=== PATIENT | female | born 1955 | race Caucasian/White ===

== ENCOUNTER → 2024-02-24 14:48 | Outpatient (REF) | payer OTHER, SELFPAY | LOC: OIDL 14:48 | PROVIDERS: ATTENDING PHYSICIAN Internal Medicine Hematology & Oncology | DX: C20 Malignant neoplasm of rectum (principal); C78.7 Secondary malignant neoplasm of liver and intrahepatic bile duct | CPT/HCPCS: J9206 ==

== ENCOUNTER → 2024-03-06 11:09 | Outpatient (REF) | payer OTHER, SELFPAY ==
[2024-03-06 10:35] LABS: % Basophils 1.1 % (0-2); % Eosinophils 1.7 % (0-6); % Immature Granulocytes 0.3 % (0-0.5); % Lymphocytes 10.6 % (20.5-51.1); % Monocytes 11.3 % (1.7-9.3); Absolute Basophils 0.1 10^3/uL (0-0.2); Absolute Eosinophils 0.1 10^3/uL (0-0.7); Absolute Lymphocytes 0.8 10^3/uL (1.2-3.4); Absolute Monocytes 0.8 10^3/uL (0.1-0.6); Absolute Neutrophils 5.4 10^3/uL (1.4-6.5); Hematocrit 35.8 % (37.0-47.0); Hemoglobin 11.2 g/dL (12.0-16.0); Mean Corp Hgb Conc. 31.3 g/dL (33.0-37.0); Mean Corpuscular Hgb 30.2 pg (27.0-31.0); Mean Corpuscular Volume 96.5 fL (81.0-99.0); Mean Platelet Volume 9.7 fL (7.4-10.4); Platelet Count 359 10^3/uL (130-400); Red Blood Cell Count 3.71 10^6/uL (4.20-5.40); Red Cell Dist. Width 16.5 % (11.5-14.5); White Blood Cell Count 7.2 10^3/uL (4.8-10.8)
[2024-03-06 10:56] LABS: ALT (SGPT) 18 U/L (0-35); AST (SGOT) 36 U/L (14-36); Albumin 4.1 g/dl (3.5-5.0); Alkaline Phosphatase 122 U/L (38-126); Blood Urea Nitrogen 15 mg/dl (7-17); Calcium 9.5 mg/dl (8.4-10.2); Carbon Dioxide 25 mmol/L (22-30); Chloride 105 mmol/L (98-107); Glucose 113 mg/dl (70-99); Potassium 4.2 mmol/L (3.5-5.1); Sodium 136 mmol/L (135-145); Total Bilirubin 0.5 mg/dl (0.2-1.3); Total Protein 7.3 g/dl (6.3-8.2); eGFR > 60.00
== END ==
LOC: OIDL 11:09
PROVIDERS: ATTENDING PHYSICIAN Internal Medicine Hematology & Oncology; FAMILY PHYSICIAN Internal Medicine
DX: C78.7 Secondary malignant neoplasm of liver and intrahepatic bile duct (principal); C20 Malignant neoplasm of rectum
CPT/HCPCS: 80053; 85025

== ENCOUNTER → 2024-04-09 08:45 | Outpatient (REF) | payer OTHER, SELFPAY | LOC: PET 08:45 | PROVIDERS: ATTENDING PHYSICIAN Internal Medicine Hematology & Oncology | DX: C20 Malignant neoplasm of rectum (principal) | CPT/HCPCS: 78815; A9552 ==

== ENCOUNTER → 2024-04-10 10:54 | Outpatient (REF) | payer OTHER, SELFPAY ==
[2024-04-10 12:22] LABS: % Eosinophils 1.4 % (0-6); % Immature Granulocytes 0.5 % (0-0.5); % Monocytes 10.7 % (1.7-9.3); % Neutrophils 75.4 % (42.2-75.2); Absolute Basophils 0.1 10^3/uL (0-0.2); Absolute Eosinophils 0.1 10^3/uL (0-0.7); Absolute Lymphocytes 0.9 10^3/uL (1.2-3.4); Absolute Monocytes 0.8 10^3/uL (0.1-0.6); Absolute Neutrophils 5.9 10^3/uL (1.4-6.5); Hematocrit 37.5 % (37.0-47.0); Hemoglobin 11.2 g/dL (12.0-16.0); Mean Corp Hgb Conc. 29.9 g/dL (33.0-37.0); Mean Corpuscular Hgb 28.1 pg (27.0-31.0); Mean Platelet Volume 9.7 fL (7.4-10.4); Nucleated Red Blood Cells % 0 %; Platelet Count 278 10^3/uL (130-400); Red Blood Cell Count 3.99 10^6/uL (4.20-5.40); Red Cell Dist. Width 15.5 % (11.5-14.5); White Blood Cell Count 7.9 10^3/uL (4.8-10.8)
[2024-04-10 13:38] LABS: ALT (SGPT) 16 U/L (0-35); AST (SGOT) 37 U/L (14-36); Albumin 4.3 g/dl (3.5-5.0); Alkaline Phosphatase 133 U/L (38-126); Blood Urea Nitrogen 18 mg/dl (7-17); Calcium 9.2 mg/dl (8.4-10.2); Carbon Dioxide 27 mmol/L (22-30); Chloride 102 mmol/L (98-107); Glucose 92 mg/dl (70-99); Potassium 4.6 mmol/L (3.5-5.1); Sodium 138 mmol/L (135-145); Total Bilirubin 0.5 mg/dl (0.2-1.3); Total Protein 7.5 g/dl (6.3-8.2); eGFR > 60.00
== END ==
LOC: REG 10:54
PROVIDERS: ATTENDING PHYSICIAN Internal Medicine Hematology & Oncology; FAMILY PHYSICIAN Family Medicine
DX: C78.7 Secondary malignant neoplasm of liver and intrahepatic bile duct (principal); C20 Malignant neoplasm of rectum
CPT/HCPCS: 36415; 80053; 85025

== ENCOUNTER → 2024-05-08 10:27 | Outpatient (REF) | payer OTHER, SELFPAY | LOC: MRI 3T 10:27 | PROVIDERS: ATTENDING PHYSICIAN Physician Assistant; FAMILY PHYSICIAN Family Medicine | DX: M54.14 Radiculopathy, thoracic region (principal) | CPT/HCPCS: 72146 ==

== ENCOUNTER → 2024-07-18 11:35 | Outpatient (REF) | payer OTHER, SELFPAY ==
[2024-07-18 12:39] LABS: % Basophils 0.8 % (0-2); % Immature Granulocytes 1.3 % (0-0.5); % Lymphocytes 18.1 % (20.5-51.1); % Monocytes 12.7 % (1.7-9.3); % Neutrophils 66.1 % (42.2-75.2); Absolute Eosinophils 0.1 10^3/uL (0-0.7); Absolute Immature Granulocytes 0.1 10^3/uL (0-0.05); Absolute Lymphocytes 0.9 10^3/uL (1.2-3.4); Absolute Monocytes 0.6 10^3/uL (0.1-0.6); Absolute Neutrophils 3.2 10^3/uL (1.4-6.5); Hematocrit 31.5 % (37.0-47.0); Hemoglobin 9.7 g/dL (12.0-16.0); Mean Corp Hgb Conc. 30.8 g/dL (33.0-37.0); Mean Corpuscular Hgb 27.3 pg (27.0-31.0); Mean Corpuscular Volume 88.7 fL (81.0-99.0); Mean Platelet Volume 9.2 fL (7.4-10.4); Nucleated Red Blood Cells % 0 %; Platelet Count 274 10^3/uL (130-400); Red Blood Cell Count 3.55 10^6/uL (4.20-5.40); Red Cell Dist. Width 19.7 % (11.5-14.5); White Blood Cell Count 4.8 10^3/uL (4.8-10.8)
[2024-07-18 13:05] LABS: Urine Albumin Trace (Neg - Trace); Urine Bilirubin Negative (Negative); Urine Character Clear (Clear); Urine Color Yellow; Urine Glucose Negative (Negative); Urine Ketone Negative (Negative); Urine Leukocyte Negative (Negative); Urine Nitrite Negative (Negative); Urine Occult Blood Negative (Negative); Urine Urobilinogen Negative (Neg - 1+)
[2024-07-18 13:46] LABS: ALT (SGPT) 29 U/L (0-35); AST (SGOT) 40 U/L (14-36); Albumin 4.1 g/dl (3.5-5.0); Alkaline Phosphatase 159 U/L (38-126); Blood Urea Nitrogen 17 mg/dl (7-17); Calcium 8.8 mg/dl (8.4-10.2); Carbon Dioxide 24 mmol/L (22-30); Chloride 100 mmol/L (98-107); Glucose 87 mg/dl (70-99); Potassium 4.2 mmol/L (3.5-5.1); Sodium 139 mmol/L (135-145); Total Bilirubin 0.6 mg/dl (0.2-1.3); eGFR > 60.00
== END ==
LOC: REG 11:35
PROVIDERS: ATTENDING PHYSICIAN Nurse Practitioner Adult Health; FAMILY PHYSICIAN Family Medicine
DX: C78.7 Secondary malignant neoplasm of liver and intrahepatic bile duct (principal); C20 Malignant neoplasm of rectum; K59.00 Constipation, unspecified
CPT/HCPCS: 36415; 80053; 81003; 85025; 87086

== ENCOUNTER → 2024-07-24 12:30 | Outpatient (REF) | payer OTHER, SELFPAY ==
[2024-07-24 13:42] LABS: % Basophils 0.7 % (0-2); % Eosinophils 0.8 % (0-6); % Immature Granulocytes 0.4 % (0-0.5); % Lymphocytes 10.6 % (20.5-51.1); % Monocytes 8.3 % (1.7-9.3); % Neutrophils 79.2 % (42.2-75.2); Absolute Basophils 0.1 10^3/uL (0-0.2); Absolute Eosinophils 0.1 10^3/uL (0-0.7); Absolute Lymphocytes 0.8 10^3/uL (1.2-3.4); Absolute Monocytes 0.6 10^3/uL (0.1-0.6); Absolute Neutrophils 5.9 10^3/uL (1.4-6.5); Hematocrit 34.1 % (37.0-47.0); Hemoglobin 10.5 g/dL (12.0-16.0); Mean Corp Hgb Conc. 30.8 g/dL (33.0-37.0); Mean Corpuscular Hgb 27.4 pg (27.0-31.0); Nucleated Red Blood Cells % 0 %; Platelet Count 312 10^3/uL (130-400); Red Blood Cell Count 3.83 10^6/uL (4.20-5.40); Red Cell Dist. Width 20.4 % (11.5-14.5); White Blood Cell Count 7.4 10^3/uL (4.8-10.8)
[2024-07-24 14:02] LABS: ALT (SGPT) 27 U/L (0-35); AST (SGOT) 42 U/L (14-36); Albumin 4.4 g/dl (3.5-5.0); Alkaline Phosphatase 169 U/L (38-126); Blood Urea Nitrogen 18 mg/dl (7-17); Calcium 9.4 mg/dl (8.4-10.2); Carbon Dioxide 23 mmol/L (22-30); Chloride 101 mmol/L (98-107); Glucose 87 mg/dl (70-99); Sodium 141 mmol/L (135-145); Total Bilirubin 0.5 mg/dl (0.2-1.3); Total Protein 7.4 g/dl (6.3-8.2); eGFR > 60.00
[2024-07-24 14:29] LABS: CEA 280 ng/ml
== END ==
LOC: REG 12:30
PROVIDERS: ATTENDING PHYSICIAN Nurse Practitioner Adult Health; FAMILY PHYSICIAN Family Medicine
DX: C78.7 Secondary malignant neoplasm of liver and intrahepatic bile duct (principal); C20 Malignant neoplasm of rectum; K59.00 Constipation, unspecified
CPT/HCPCS: 36415; 80053; 82378; 85025

== ENCOUNTER 2024-07-25 12:15 | Emergency (ER) | payer OTHER, SELFPAY ==
[2024-07-25 12:25] VITALS: BP 147/118
[2024-07-25 12:56] LABS: % Basophils 0.5 % (0-2); % Eosinophils 0.5 % (0-6); % Immature Granulocytes 0.5 % (0-0.5); % Lymphocytes 9.3 % (20.5-51.1); % Monocytes 8.9 % (1.7-9.3); % Neutrophils 80.3 % (42.2-75.2); Absolute Lymphocytes 0.7 10^3/uL (1.2-3.4); Absolute Monocytes 0.7 10^3/uL (0.1-0.6); Hematocrit 35.2 % (37.0-47.0); Hemoglobin 10.8 g/dL (12.0-16.0); Mean Corp Hgb Conc. 30.7 g/dL (33.0-37.0); Mean Corpuscular Hgb 27.1 pg (27.0-31.0); Mean Corpuscular Volume 88.2 fL (81.0-99.0); Mean Platelet Volume 9.2 fL (7.4-10.4); Nucleated Red Blood Cells % 0 %; Platelet Count 339 10^3/uL (130-400); Red Blood Cell Count 3.99 10^6/uL (4.20-5.40); Red Cell Dist. Width 20.4 % (11.5-14.5); White Blood Cell Count 7.5 10^3/uL (4.8-10.8)
[2024-07-25 13:10] LABS: ALT (SGPT) 26 U/L (0-35); AST (SGOT) 42 U/L (14-36); Acetaminophen < 10 ug/ml (10-30); Albumin 4.5 g/dl (3.5-5.0); Alkaline Phosphatase 164 U/L (38-126); Blood Urea Nitrogen 17 mg/dl (7-17); Calcium 9.9 mg/dl (8.4-10.2); Carbon Dioxide 26 mmol/L (22-30); Chloride 101 mmol/L (98-107); Glucose 130 mg/dl (70-99); Salicylate < 1.0 mg/dl (2.0-20.0); Sodium 140 mmol/L (135-145); Total Bilirubin 0.5 mg/dl (0.2-1.3); Total Protein 7.6 g/dl (6.3-8.2); eGFR > 60.00
[2024-07-25 13:14] LABS: Alcohol None Detected
[2024-07-25 13:39] LABS: TSH Reflex To Free T4 1.47 uIU/ml (0.47-4.68)
--- NOTE | 2024-07-25 13:49 | ED.GENMED ---
History of Present Illness
General
Chief Complaint: Crisis Evaluation
Source: patient and family
Exam Limitations: none
Time Seen by Provider: 07/25/24 13:49
History of Present Illness
History of Present Illness:
Patient is a 69-year-old female with a history of metastatic rectal cancer at [facility] today to receive chemo when she refused it. yard worker reports that patient brought by dialysis social worker at [facility]. Patient was
thinks that she was poisoned during last chemo she received July 11.
Patient presents awake alert. She believes that she received ' poison instead of chemotherapy.' She tells me she normally has side effects from chemo and when she had the chemotherapy July 11 she had no side effects and therefore she does not
feel she received her chemo. She did have pain all over. She reports she believes that people are' spraying my property with chemicals' and this 'occurs 24 hours a day 7 days a week. ' She has not seen them however she believes this is being
done. She believes that her 'TV is under control her phones are bugged and my electric is hacked.'
She does reports she was in [facility] previously in the past. She reports at that time she felt very depressed.
She currently denies any suicidal homicidal thoughts
Past History
Past History
ED Past Medical History: Cancer (Rectal), Fibromyalgia, HTN and Other (ANCA vasculitis)
ED Past Surgical History: Other (Port placement)
Social History
Tobacco: Other
Alcohol: Other
Drug: Other
Personal:
Living: with family
Employment: Employed
Family History
Family History: Other
Review of Systems
Review of Systems
Allergies reviewed?: Yes
All Other Systems: ROS reviewed and negative except as documented in HPI and ROS
Constitutional: Reports no symptoms; Denies fever, fatigue or chills
Respiratory: Reports no symptoms
Cardiac: Reports no symptoms
ABD/GI: Reports no symptoms
Musculoskeletal: Reports no symptoms
Skin: Reports no symptoms
Neurological: Reports no symptoms
Psychiatric: Denies suicidal or hallucinations
Phy Exam
General Physical Exam
General Presentation: no apparent distress
General age: appears stated age
General Skin: warm and dry
General Habitus: elderly
General Mental: alert
General Hydration: appears well hydrated
Cardiovascular Exam
Cardiovascular Exam: regular rate/rhythm, no murmur and normal peripheral pulses
Pulmonary Exam
Pulmonary Exam: lungs clear and no respiratory distress
Neurological Exam
Neurological Exam: alert and oriented x3
Musculoskeletal Exam
Musculoskeletal Exam: full ROM
Skin Exam
Skin Exam: normal color and warm/dry
Psychiatric Exam
Psychiatric Exam: delusions and other (pt is not suicidal /homicidal )
Course
Orders/Labs/Results
Orders:
Orders
07/25/24 12:37
Acetaminophen Urgent
Alcohol Urgent
Complete Blood Count/With Diff Urgent
Comprehensive Metabolic Panel Urgent
Salicylate Urgent
TSH Reflex To Free T4 Urgent
07/25/24 14:23
Crisis Consult Urgent
Reason for Consult: paranoid
07/25/24 14:55
CT Head W/o Iv Contrast Urgent
Comment:
Reason For Exam: change in ms
07/25/24 15:42
UA Reflex to Culture [Urinalysis Reflex To Culture] Urgent
Date Specimen was Collected: 07/25/24
Time Specimen was Collected: 15:14
Abnormal Lab Results
07/25/24
12:37
RBC 3.99 L 10^6/uL
(4.20-5.40)
Hgb 10.8 L g/dL
(12.0-16.0)
Hct 35.2 L %
(37.0-47.0)
MCHC 30.7 L g/dL
(33.0-37.0)
RDW 20.4 H %
(11.5-14.5)
Absolute Lymphs (auto) 0.7 L 10^3/uL
(1.2-3.4)
Absolute Monos (auto) 0.7 H 10^3/uL
(0.1-0.6)
Neutrophils % 80.3 H %
(42.2-75.2)
Lymphocytes % 9.3 L %
(20.5-51.1)
Glucose 130 H mg/dl
(70-99)
AST 42 H U/L
(14-36)
Alkaline Phosphatase 164 H U/L
(38-126)
Salicylates < 1.0 L mg/dl
(2.0-20.0)
Acetaminophen < 10 L ug/ml
(10-30)
07/25/24 12:37
07/25/24 12:37
Vital Signs
Initial and Last Documented VS:
Initial Vital Signs
Temp Pulse Resp BP Pulse Ox
98.1 F 103 20 147/118 98
07/25/24 12:25 07/25/24 12:25 07/25/24 12:25 07/25/24 12:25 07/25/24 12:25
Last Documented Vital Signs
Temp Pulse Resp BP Pulse Ox
98.1 F 85 20 139/85 98
07/25/24 12:25 07/25/24 16:00 07/25/24 16:00 07/25/24 16:00 07/25/24 16:00
MDM/Problems Addressed
Differential Diagnosis Includes:
Not limited to paranoid delusion; less likely infection UTI
MDM/Problems Addressed:
Patient is a 69-year-old female who presented to the ER for evaluation. As documented patient was sent by oncology for evaluation. Patient refused chemo today as she thinks is being poisoned. As documented she believes the chemotherapy she
received on July 11 was poisoned. Patient does not however arrive to the ER awake alert and oriented x 3. As documented patient is paranoid delusional. She believes her house is being sprayed by chemicals her cameras are bugged etc. She is
not suicidal homicidal. She does not' believe I am crazy.'
She on my exam was calm and cooperative but clearly stating what she believes is going on. She was seen by crisis and very angry at crisis and does not want to speak with them again.
She was cooperative and had blood work done which shows a normal white count stable hemoglobin at 10.8 normal chemistries. Patient is afebrile presented hypertensive(patient is on blood pressure meds.)
I did speak with patient's oncologist Dr. Mckeon. She remains to deny any suicidal homicidal thoughts. She has these paranoid and delusional thoughts. I spoke with crisis and another crisis provider was able to give patient outpatient therapy
information. Psychiatry was not able to see patient here in the ER.
She wants to go home and is stable to do so. She is awake alert and oriented and despite her paranoia and delusional thoughts she is capable of making her own decision. In speaking with oncology oncologist did notify patient's family doctor
Chronic conditions affecting care:
metastatic rectal cancer currently being treated at [facility]
*Critical Care Note
Total Time (30-74mins, 75-104mins- exclusive of procedures): Not Applicable
ED Attending Note
-
Portions of this chart may have been created with voice recognition software.� Occasional wrong word or��sound alike� substitutions may have occurred due to the inherent limitations of voice recognition software.
Discharge Plan
Departure
Patient Disposition: Home (Routine Discharge)
Date of Disposition: 07/25/24
Time of Disposition: 16:01
Patient with high blood pressure during this ER visit?: Yes
Condition: Fair
Discharge Problem:
Encounter for medical assessment
Prescriptions:
No Action
acetaminophen [Tylenol Extra Strength] 500 MG tablet
1,000 mg PO Q4HPRN PRN (Reason: mild pain)
Refresh Classic (PF) 10 DROPS dropperette
1 drp BOTH EYES Q2HPRN PRN (Reason: dry eyes)
Systane (PF) 1 EACH dropperette
1 ea BOTH EYES DAILYPRN PRN (Reason: dryness)
amlodipine 5 MG tablet
5 mg PO BID
tramadol 50 mg Tablet
50 mg PO TID
Patient Comments:
08/04/2023: last filled 07/29/23, 90 tabs for 30 days from [facility]#[id number]
loratadine [Claritin] 10 mg Tablet
10 mg PO DAILY PRN (Reason: Allergies)
risedronate 150 mg tablet
150 mg PO MONTHLY
Referrals:
Thierry De La Torre Jr., [Family Provider] -
Radha Mckeon MD [Active] -
Activity Restrictions/Additional Instructions:
You were evaluated today for concerning thoughts . from a medical evaluation, you had normal labs and normal ct scan.
You were evaluated by crisis and given paperwork for outpatient therapy.
Please call your oncologist tomorrow to schedule additional treatments and evaluation.
Interventions
Interventions:
*Risk Screen - Suicide Last Done: 07/25/24 12:16
*General Assessment Last Done: 07/25/24 12:31
*Neglect/Abuse Screening Last Done: 07/25/24 12:31
*ED COVID-19 Vaccine History Last Done: 07/25/24 12:31
*Nursing Disposition Last Done: 07/25/24 16:25
ED-Psychological Assessment Last Done: 07/25/24 12:32
Discharge Date and Time
Discharge Date/Time: 07/25/24 16:26
Print Language: CROATIAN
[2024-07-25 14:00] VITALS: BP 138/94
[2024-07-25 16:00] VITALS: BP 139/85
[2024-07-25 16:04] LABS: Urine Albumin Negative (Neg - Trace); Urine Bilirubin Negative (Negative); Urine Character Clear (Clear); Urine Color Yellow; Urine Glucose Negative (Negative); Urine Ketone Negative (Negative); Urine Leukocyte Negative (Negative); Urine Nitrite Negative (Negative); Urine Occult Blood Negative (Negative); Urine Urobilinogen Negative (Neg - 1+)
== END 2024-07-25 16:26 | disposition home or self-care (01) ==
LOC: EMR 12:15
PROVIDERS: Nurse Practitioner; EMERGENCY PHYSICIAN Emergency Medicine; FAMILY PHYSICIAN Family Medicine
DX: Z02.79 Encounter for issue of other medical certificate (principal); F22 Delusional disorders; R03.0 Elevated blood-pressure reading, without diagnosis of hypertension; C20 Malignant neoplasm of rectum; C79.9 Secondary malignant neoplasm of unspecified site; M79.7 Fibromyalgia; I10 Essential (primary) hypertension; Z88.1 Allergy status to other antibiotic agents; Z91.041 Radiographic dye allergy status; Z88.0 Allergy status to penicillin; Z88.2 Allergy status to sulfonamides; Z91.048 Other nonmedicinal substance allergy status
CPT/HCPCS: 99284; 70450; 80053; 80143; 80179; 81003; 82077; 84443; 85025

== ENCOUNTER → 2024-08-07 08:26 | Outpatient (REF) | payer OTHER, SELFPAY | LOC: HWRAD 08:26 | PROVIDERS: ATTENDING PHYSICIAN Family Medicine | DX: R07.89 Other chest pain (principal) | CPT/HCPCS: 74176 ==

== ENCOUNTER → 2024-08-16 07:44 | Outpatient (REF) | payer OTHER, SELFPAY | LOC: HWRAD 07:44 | PROVIDERS: ATTENDING PHYSICIAN Nurse Practitioner Adult Health; FAMILY PHYSICIAN Family Medicine | DX: C78.7 Secondary malignant neoplasm of liver and intrahepatic bile duct (principal); C20 Malignant neoplasm of rectum; K59.00 Constipation, unspecified | CPT/HCPCS: 76700 ==

== ENCOUNTER 2024-09-16 09:33 | Inpatient (IN) | payer OTHER, SELFPAY ==
[2024-09-16] VITALS (9 sets, daily range): BP systolic 137–166; BP diastolic 87–112; BMI 21.6
[2024-09-16] MEDS: NSS 1000 IV ×2 (05:04→06:51)
[2024-09-16] MEDS: REGLAN 10 MG IV (05:04)
[2024-09-16 05:10] LABS: % Basophils 0.3 % (0-2); % Eosinophils 0.1 % (0-6); % Immature Granulocytes 0.5 % (0-0.5); % Lymphocytes 3.4 % (20.5-51.1); % Monocytes 6.4 % (1.7-9.3); % Neutrophils 89.3 % (42.2-75.2); Absolute Basophils 0.1 10^3/uL (0-0.2); Absolute Immature Granulocytes 0.1 10^3/uL (0-0.05); Absolute Lymphocytes 0.6 10^3/uL (1.2-3.4); Absolute Monocytes 1.2 10^3/uL (0.1-0.6); Absolute Neutrophils 16.4 10^3/uL (1.4-6.5); Hematocrit 39.2 % (37.0-47.0); Mean Corp Hgb Conc. 30.6 g/dL (33.0-37.0); Mean Corpuscular Hgb 27.5 pg (27.0-31.0); Mean Corpuscular Volume 89.9 fL (81.0-99.0); Mean Platelet Volume 8.8 fL (7.4-10.4); Nucleated Red Blood Cells % 0 %; Platelet Count 508 10^3/uL (130-400); Red Blood Cell Count 4.36 10^6/uL (4.20-5.40); Red Cell Dist. Width 16.6 % (11.5-14.5); White Blood Cell Count 18.4 10^3/uL (4.8-10.8)
[2024-09-16 05:34] LABS: Lactic Acid 1.7 mmol/L (0.7-2.0)
[2024-09-16 05:36] LABS: ALT (SGPT) 19 U/L (0-35); AST (SGOT) 39 U/L (14-36); Albumin 3.9 g/dl (3.5-5.0); Alkaline Phosphatase 250 U/L (38-126); Blood Urea Nitrogen 21 mg/dl (7-17); Calcium 9.8 mg/dl (8.4-10.2); Carbon Dioxide 24 mmol/L (22-30); Chloride 98 mmol/L (98-107); Estimated Creatinine Clearance 91 ml/min; Glucose 123 mg/dl (70-99); Lipase 91 U/L (23-300); Potassium 3.9 mmol/L (3.5-5.1); Sodium 137 mmol/L (135-145); Total Bilirubin 1.2 mg/dl (0.2-1.3); Total Protein 7.4 g/dl (6.3-8.2); eGFR > 60.00
--- NOTE | 2024-09-16 05:47 | ED.GENMED ---
History of Present Illness
General
Chief Complaint: Abdominal Pain
Source: patient, spouse, previous radiology exam (CT abdomen pelvis August 07, 2024 showing worsening metastatic disease with increased pelvic and retroperitoneal lymph nodes, new mesenteric lymphadenopathy as well as peritoneal implants.) and
previous hospital records
Exam Limitations: none
Time Seen by Provider: 09/16/24 04:53
Nursing documentation reviewed up to this point in time: agreed with except (Nausea and vomiting began September 14.)
History of Present Illness
History of Present Illness:
This is a 69-year-old woman with history of metastatic rectal carcinoma who began a new oral chemotherapeutic agent, Lonsurt, on September 11. She complains of persistent nausea and vomiting for more than 2 days now associated with
generalized mid to lower abdominal pain. She complains of progressive generalized weakness, fatigue, lightheadedness with standing. She has not had a fever nor chills. She notes decreased oral intake and has not passed a bowel movement for at
least the past 3 to 4 days. She did attempt an enema yesterday without success.
She does have history of chronic pain, prescribed tramadol and more recently prescribed Oxy IR. Patient states she has not been able to take her medications due to persistent nausea and vomiting. She denies hematemesis.
She denies dysuria and urgency nor hematuria. No coughing or shortness of breath.
Past History
Past History
ED Past Medical History: Cancer (Metastatic rectal carcinoma), Fibromyalgia, HTN, Psychiatric (Depression, paranoid delusions) and Other (ANCA vasculitis; lumbar DJD; chronic pain;)
ED Past Surgical History: Other (Port placement)
Social History
Tobacco: Non-smoker
Alcohol: None
Drug: None
Personal:
Living: with family
Employment: Retired
Family History
Family History: Other (Noncontributory)
Phy Exam
Physical Exam
Physical Exam:
GENERAL: 69-year-old woman appears her stated age, appears somewhat frail, soft-spoken, moderately ill in appearance.
EYE: pupils equal and reactive. anicteric
NECK: Supple, nontender, no meningismus, no significant adenopathy.
ENT: posterior pharynx is clear, oral mucosa is mildly dry. TM clear b/l, nares patent.
CARDIAC: Regular rhythm, mildly tachycardic. no murmur.
LUNGS: Clear breath sounds bilaterally, no acute respiratory distress, no wheezes/rales/rhonchi
ABDOMEN: Soft, nondistended, mild to moderate generalized tenderness mid to lower abdomen, no r/g, no cvat. normoactive BS.
NEUROLOGICAL: Alert and oriented x3, no focal neuro deficits.
SKIN: Warm and dry, normal color, skin intact. No rash.
MUSCULOSKELETAL: No C/C/E. peripheral pulses are full and equal b/l. No palpable tenderness.
PSYCH: Normal and appropriate interaction.
Course
Orders/Labs/Results
Orders:
Orders
09/16/24 04:41
EKG [Electrocardiogram (*1)] Urgent
Reason for Study: Abdominal Pain
09/16/24 04:42
EKG- Treatment ONCE
09/16/24 04:46
IV Insert/Care/Rem.- Treatment PRN
09/16/24 04:56
0.9% Sodium Chloride 1000 ml [Nss] 1,000 ml IV BOLUS
Metoclopramide [Reglan] 10 mg IV NOW STA
09/16/24 05:01
Complete Blood Count/With Diff Urgent
Comprehensive Metabolic Panel Urgent
Lactate Level [Lactic Acid] Urgent
Lipase Urgent
09/16/24 05:48
CT Abd/pel Without Iv Or Oral Urgent
Comment:
Reason For Exam: GEN ABD PAIN, N/V X 2 DAYS
Morphine Sulfate 4 mg IV NOW STA
09/16/24 06:37
0.9% Sodium Chloride 1000 ml [Nss] 1,000 ml IV 250 mls/hr
09/16/24 06:42
GI tube insertion- Treatment ONCE
09/16/24 06:51
HYDROmorphone [Dilaudid] 0.5 mg IV NOW STA
09/16/24 06:55
Lidocaine 2% [Lidocaine Uro-Jet 2%] 1 syringe .ROUTE .K-MED ONE
Abnormal Lab Results
09/16/24
05:01
WBC 18.4 H 10^3/uL
(4.8-10.8)
MCHC 30.6 L g/dL
(33.0-37.0)
RDW 16.6 H %
(11.5-14.5)
Plt Count 508 H 10^3/uL
(130-400)
Abs Immat Gran (auto) 0.1 H 10^3/uL
(0-0.05)
Absolute Neuts (auto) 16.4 H 10^3/uL
(1.4-6.5)
Absolute Lymphs (auto) 0.6 L 10^3/uL
(1.2-3.4)
Absolute Monos (auto) 1.2 H 10^3/uL
(0.1-0.6)
Neutrophils % 89.3 H %
(42.2-75.2)
Lymphocytes % 3.4 L %
(20.5-51.1)
BUN 21 H mg/dl
(7-17)
Glucose 123 H mg/dl
(70-99)
AST 39 H U/L
(14-36)
Alkaline Phosphatase 250 H U/L
(38-126)
09/16/24 05:01
09/16/24 05:01
Vital Signs
Initial and Last Documented VS:
Initial Vital Signs
BP
166/102
09/16/24 04:41
Last Documented Vital Signs
Temp Pulse Resp BP Pulse Ox
98.9 F 106 18 155/104 97
09/16/24 04:42 09/16/24 06:07 09/16/24 05:15 09/16/24 05:00 09/16/24 05:15
MDM/Problems Addressed
Differential Diagnosis Includes:
Concern for progression of intra-abdominal metastatic disease, concern for bowel obstruction, electrolyte abnormality, dehydration, acute kidney injury, exacerbation of chronic pain.
Will initiate IV fluids, IV pain medication and antiemetic.
Will check labs, urinalysis and plan for CT abdomen and pelvis.
Chronic conditions affecting care: Previous abdomnial surgery, Immunosuppressed and Cancer
*Radiology
Radiology exam reviewed: radiology read reviewed
*Pulse Oximetry
Patient hypoxic: no
*EKG
Interpreted by ED Provider?: Yes
Interpretation: abnormal
Comparison EKG: changes noted (Flattened T waves/mildly long QT is new compared to previous EKG July 2023)
Rate: tachycardiac
Rhythm: sinus
Raymond: normal axis
Interval: long QT
QRS Pattern: normal QRS and poor R-wave progression
Ischemia: non-specific ST changes
*Clinical Project Leader Interpretation
Rate: tachycardiac
Interpretation: abnormal
Rhythm: sinus
*Critical Care Note
Total Time (30-74mins, 75-104mins- exclusive of procedures): Not Applicable
Update Note
Update Note:
CAT scan shows multiple dilated loops of small bowel likely reflecting obstruction. No free air. Multiple liver lesions/metastasis. Diffuse peritoneal metastatic disease and metastatic lymphadenopathy appears similar to previous imaging.
Labs remarkable for significantly elevated white blood cell count of 18.4. Chemistries show mildly elevated BUN but normal creatinine, normal electrolytes. Lactic acid is normal at 1.7. Elevated alkaline phosphatase of 250 likely due to
metastatic disease.
Will continue IV fluids, IV pain medication, will plan for NG tube to low intermittent suction and will admit to hospitalist service.
ED Attending Note
-
Portions of this chart may have been created with voice recognition software.� Occasional wrong word or��sound alike� substitutions may have occurred due to the inherent limitations of voice recognition software.
Discharge Plan
Departure
Patient Disposition: Admit
Date of Disposition: 09/16/24
Time of Disposition: 07:00
Admit to: Med/Surg
Presentation/result/management discussed w/ accepting MD/DO: Hospitalist
Condition: Fair
Discharge Problem:
Small bowel obstruction, metastatic colon carcinoma
Prescriptions:
No Action
acetaminophen [Tylenol Extra Strength] 500 MG tablet
1,000 mg PO Q4HPRN PRN (Reason: mild pain)
Refresh Classic (PF) 10 DROPS dropperette
1 drp BOTH EYES Q2HPRN PRN (Reason: dry eyes)
Systane (PF) 1 EACH dropperette
1 ea BOTH EYES DAILYPRN PRN (Reason: dryness)
amlodipine 5 MG tablet
5 mg PO BID
tramadol 50 mg Tablet
50 mg PO TID
Patient Comments:
08/04/2023: last filled 07/29/23, 90 tabs for 30 days from [facility]#[id number]
oxycodone 5 mg Tablet
5 mg PO Q4H PRN (Reason: pain)
Rx Instructions:
pt states usually takes 1 a day
Referrals:
Arlyn Calvert NP [Family Provider] -
Interventions
Interventions:
*Risk Screen - Suicide Last Done: 09/16/24 04:43
*General Assessment Last Done: 09/16/24 04:43
*Neglect/Abuse Screening Last Done: 09/16/24 04:43
ED- Fall Risk Assessment Last Done: 09/16/24 04:50
*ED COVID-19 Vaccine History Last Done: 09/16/24 04:43
CN-Utteew-Cbguknyqll Assessment Last Done: 09/16/24 04:51
Discharge Date and Time
Print Language: CHILEAN
[2024-09-16] MEDS: MORPHINE SULFATE 4 MG IV (05:54)
[2024-09-16] MEDS: DILAUDID 0.5 MG IV (06:53)
--- NOTE | 2024-09-16 08:55 | HPS.HSE ---
Family Physician
-
Family Physician: Arlyn Calvert
Chief Complaint
-
Abdominal pain nausea vomiting
History of Present Illness
Patient is a 69-year-old female with history of metastatic rectal adenocarcinoma on chemotherapy, essential hypertension, history of pleural effusion came to ER with new onset of nausea vomiting inability to have bowel movement. Patient was started
on new chemotherapy medication Lonsurf on 11 September. From Tuesday evening patient started to having significant nausea and vomiting with multiple episodes of green bilious vomitus. Symptoms continue to progress and patient have been not able to
keep any food/liquid down. Patient unable to pass any gas or bowel movement for the last 72 hours as well. Some abdominal discomfort but no significant abdominal distention. Patient is afebrile. Have some episode of dizziness as well.
Denies of having any shortness of breath/chest pain/palpitation.
Medical History
Past Medical History
Past Medical History: Reports Other
Additional Past Medical History:
metastatic rectal adenocarcinoma on chemotherapy, essential hypertension, history of pleural effusion
Past Surgical History: Reports Other
Social History
Tobacco: Non-smoker
Alcohol: None
Drug: None
Family History
Family History: Not pertinent
Allergies / Home Medications
Allergies reflects when Allergies were last updated in [facility].
Home Medications with original date entered in [facility]
Allergy/Medication List:
Allergies
Allergy/AdvReac Type Severity Reaction Status Date / Time
clarithromycin [From Biaxin] Allergy Tongue Verified 07/25/24 12:29
Swelling
Iodinated Contrast Media Allergy Itching Verified 07/25/24 12:29
penicillin V [Penicillin V] Allergy Hives Verified 07/25/24 12:29
ragweed pollen Allergy Shortness Verified 07/25/24 12:29
of Breath
silver Allergy per pt Verified 07/25/24 12:29
[From Tegaderm AG Mesh] placed
over port
per pt and
she had
rash
sulfamethoxazole Allergy Tongue Verified 07/25/24 12:29
[From Bactrim] Swelling
trimethoprim [From Bactrim] Allergy Tongue Verified 07/25/24 12:29
Swelling
Home Medications
acetaminophen 500 mg tablet (Tylenol Extra Strength) 1,000 mg PO Q4HPRN PRN mild pain 04/07/18
polyvinyl alcohol-povidone (PF) 1.4 %-0.6 % eye drops in a dropperette (Refresh Classic (PF)) 1 drp BOTH EYES Q2HPRN PRN dry eyes 04/07/18
peg 400-propylene glycol (PF) 0.4 %-0.3 % eye drops in a dropperette (Systane (PF)) 1 ea BOTH EYES DAILYPRN PRN dryness 08/22/20
amlodipine 5 mg tablet 5 mg PO BID Blood pressure 09/16/21
tramadol 50 mg tablet 50 mg PO TID Pain 08/03/23
oxycodone 5 mg tablet 5 mg PO Q4H PRN pain 09/16/24
Review of Systems
-
A 12 point ROS was completed and negative except as noted: Yes
Physical Exam
Vital Signs
Vital Signs
Temp Pulse Resp BP Pulse Ox
98.9 F 117 16 147/99 95
09/16/24 04:42 09/16/24 07:15 09/16/24 08:00 09/16/24 08:00 09/16/24 08:00
Physical Exam
General: No Apparent Distress
HEENT: No Oxygen
Respiratory: Clear
Cardiac: S1/S2 and Regular Rhythm; No Murmur or Rub
GI: Soft and Tender (Minimal ); No Normal Bowel Sounds or Organomegaly
Rectal: Deferred by Provider
Musculoskeletal: No Clubbing, No Cyanosis and No Edema
Skin: No Rash
Neuro: Awake, Alert, Oriented and Nonfocal/grossly intact
Laboratory Results
-
09/16/24 05:01
09/16/24 05:01
Laboratory Results
Lactic Acid 1.7 mmol/L (0.7-2.0) 09/16/24 05:01
Total Bilirubin 1.2 mg/dl (0.2-1.3) 09/16/24 05:01
AST 39 U/L (14-36) H 09/16/24 05:01
ALT 19 U/L (0-35) 09/16/24 05:01
Alkaline Phosphatase 250 U/L (38-126) H 09/16/24 05:01
Lipase 91 U/L (23-300) 09/16/24 05:01
Impression/Plan
-
1. Adynamic ileus
-Patient has significant nausea and vomiting for last 1 to 2 hours and unable to pass any gas/bowel movement
-CT abdomen pelvis images reviewed and some dilated small bowel loop, no true signs of bowel obstruction
-Maintain patient n.p.o. and IV fluid
-If develop significant vomiting will require NG tube placement with intermittent suction
-Continue on as needed antiemetics/pain medication
-General Surgery asked to evaluate as well
2. metastatic rectal adenocarcinoma
-Patient follows up with Dr. Mckeon, having started on Lonsurf on 11 September
-CT abdomen pelvis showing metastatic disease involving peritoneum
3. essential hypertension
-maintain on as needed hydralazine for systolic blood pressure above 160
4. Leukocytosis without fever
-Presuming reactive in nature
-f/u blood work
-If started to spiking fever will require blood culture/empiric antibiotic coverage
5. Sinus tachycardia
-from post chemo/volume depletion related
6. Elevated ALP
-chronic lab abnormalities, monitor
DVT PPX - SCD
Lovenox
Total time spent : 78 mins
I personally saw and examined the patient.
I have reviewed all diagnostic interpretations and treatment plans as written.
Time includes patient management by me, time spent at the patients bedside, time to review lab and imaging results, discussing patient care, documentation in the medical record, and time spent with the family or caregiver and discussing care plan
with RN/Consultants.
[2024-09-16] MEDS: D5LR 1000 IV ×2 (10:43→20:56)
[2024-09-16] MEDS: DILAUDID 0.25 MG IV (11:33)
--- NOTE | 2024-09-16 12:43 | CON.GS ---
Medical History
-
Chief Complaint: Abdominal pain
History of Present Illness:
Ms Rutledge is a 69 yo female with a history of stage 4 rectal cancer who was initially diagnosed about 10 years ago and treated surgically with partial colectomy and loop ileostomy creation at [facility] which was subsequently reversed.
Her reversal was complicated by an anastomotic leak with colostomy creation in management which was also able to be reversed. She notes she has been on an off different chemotherapies for many years and recently started on Lonsurf on 09/11.
Initially, she tolerated the medication well and felt better than she had prior to initiation but on Tuesday she began developing abdominal pain and was unable to pass flatus or stools. She reports her symptoms are similar to prior SBO's she has had
and so she has been limiting her PO intake. She notes increasing bloating over the weekend and pain causing her to present for evaluation. She was nauseated during examination and often had difficulty speaking due to nearly retching. NGT was
attempted to be placed in the ED but she had bleeding with placement and the procedure was aborted.
Past Medical History
Past Medical History: Cancer (metastatic rectal ca), HTN, Psychiatric (Depression, prior paranoid delusions) and Other (ANCA vasculitis; lumbar DJD; chronic pain/fibromyalgia; SBO's (2 requiring hospitalization))
Past Surgical History: Bowel Resection (partial colectomy with ileostomy: reversed. colostomy creation for anastomotic leak: reversed), Cholecystectomy (with left hepatic lobectomy), Gynecological (uterine polypectomy), Orthopedic (bunionectomy),
Tonsilectomy and Other (Port placement, cataracts)
Social History
Tobacco: Non-Smoker
Alcohol: None
Family History
Family History: Cancer (breast)
Allergies / Home Medications
Allergy/AdvReac Type Severity Reaction Status Date / Time
clarithromycin [From Biaxin] Allergy Tongue Verified 07/25/24 12:29
Swelling
Iodinated Contrast Media Allergy Itching Verified 07/25/24 12:29
penicillin V [Penicillin V] Allergy Hives Verified 07/25/24 12:29
ragweed pollen Allergy Shortness Verified 07/25/24 12:29
of Breath
silver Allergy per pt Verified 07/25/24 12:29
[From Tegaderm AG Mesh] placed
over port
per pt and
she had
rash
sulfamethoxazole Allergy Tongue Verified 07/25/24 12:29
[From Bactrim] Swelling
trimethoprim [From Bactrim] Allergy Tongue Verified 07/25/24 12:29
Swelling
�Medication �Instructions �Recorded �Confirmed �Type
acetaminophen 500 mg tablet 1,000 mg PO Q4HPRN PRN mild pain 04/07/18 09/12/23 History
(Tylenol Extra Strength)
polyvinyl alcohol-povidone (PF) 1 drp BOTH EYES Q2HPRN PRN dry eyes 04/07/18 09/12/23 History
1.4 %-0.6 % eye drops in a
dropperette (Refresh Classic (PF))
peg 400-propylene glycol (PF) 0.4 1 ea BOTH EYES DAILYPRN PRN dryness 08/22/20 09/12/23 History
%-0.3 % eye drops in a dropperette
(Systane (PF))
amlodipine 5 mg tablet 5 mg PO BID Blood pressure 09/16/21 09/12/23 History
tramadol 50 mg tablet 50 mg PO TID Pain 08/03/23 09/12/23 History
oxycodone 5 mg tablet 5 mg PO Q4H PRN pain 09/16/24 History
Review of Systems
-
History Source: Patient
All other systems: Negative unless noted
A 10 point review of systems was completed, and was negative except as per HPI.
Physical Exam
Vital Signs
Temp Pulse Resp BP Pulse Ox
98.3 F 113 18 137/89 97
09/16/24 10:14 09/16/24 10:14 09/16/24 10:14 09/16/24 10:14 09/16/24 10:14
09/15/24 09/16/24 09/17/24
06:59 06:59 06:59
Actual Weight 64.4 kg
Body Mass Index (BMI) 21.6
Lab Results
09/16/24 05:01
09/16/24 05:01
WBC 18.4 10^3/uL (4.8-10.8) H 09/16/24 05:01
Hgb 12.0 g/dL (12.0-16.0) 09/16/24 05:01
Hct 39.2 % (37.0-47.0) 09/16/24 05:01
Plt Count 508 10^3/uL (130-400) H 09/16/24 05:01
Abs Immat Gran (auto) 0.1 10^3/uL (0-0.05) H 09/16/24 05:01
Neutrophils % 89.3 % (42.2-75.2) H 09/16/24 05:01
Physical Exam
General: Negative Well Nourished or Comfortable
HEENT: Moist Mucous Membranes
Respiratory: Non Labored Respirations
GI: Soft and Distended (mild)
Skin: Warm and Dry
Neuro: Awake, Alert and AO x 3
Psych: Calm
Assessment / Plan
-
Ms Rutledge is a 69 yo female with a history of stage 4 rectal cancer who was initially diagnosed about 10 years ago and treated surgically with partial colectomy and loop ileostomy creation at [facility] which was subsequently reversed.
Her reversal was complicated by an anastomotic leak with colostomy creation in management which was also able to be reversed. She notes she has been on an off different chemotherapies for many years and recently started on Lonsurf on 09/11. On 09/14
she began developing abdominal pain and was unable to pass flatus or stools. She presents for nausea, vomiting and abdominal distention.
CT imaging reviewed with known peritoneal/hepatic metastatic disease present. Preliminary read with question of SBO which is not noted on final read. There is some small bowel distention present. XR also consistent with possible developing
obstruction. Possible developing SBO secondary to adhesions or malignancy vs ileus with change in cancer treatments. NGT was unable to be placed in the ED d/t bleeding at site
--Will follow with medical management at this time
--NPO for bowel rest
--IVF as per primary team
--Medical management as per primary team
[2024-09-16] MEDS: LOVENOX 40 MG SC (18:27)
[2024-09-16] MEDS: TORADOL 30 MG IV (21:05)
--- NOTE | 2024-09-17 03:54 | PTCARENOTE ---
Pt. c/o feeling like 'she is filling up with fluids too quickly and is feeling very bloated.' Pt. requested to have the fluids stopped for awhile. Pt. has been out of bed multiple times to urinate and said that she 'needs a break from this' because
she 'doesn't like the way the fluids are making her feel.' Fluids stopped per pt. request. Provider notified. Plan of care ongoing.
[2024-09-17 05:45] LABS: Hematocrit 34.3 % (37.0-47.0); Mean Corp Hgb Conc. 32.1 g/dL (33.0-37.0); Mean Corpuscular Hgb 28.1 pg (27.0-31.0); Mean Corpuscular Volume 87.7 fL (81.0-99.0); Mean Platelet Volume 9.1 fL (7.4-10.4); Platelet Count 410 10^3/uL (130-400); Red Blood Cell Count 3.91 10^6/uL (4.20-5.40); Red Cell Dist. Width 16.8 % (11.5-14.5); White Blood Cell Count 11.3 10^3/uL (4.8-10.8)
[2024-09-17 06:28] LABS: Blood Urea Nitrogen 12 mg/dl (7-17); Calcium 8.6 mg/dl (8.4-10.2); Carbon Dioxide 26 mmol/L (22-30); Chloride 103 mmol/L (98-107); Estimated Creatinine Clearance 91 ml/min; Glucose 94 mg/dl (70-99); Potassium 3.5 mmol/L (3.5-5.1); Sodium 141 mmol/L (135-145); eGFR > 60.00
[2024-09-17] MEDS: TORADOL 30 MG IV ×2 (07:09→14:20)
[2024-09-17 07:10] VITALS: BP 158/97
[2024-09-17] MEDS: D5LR 1000 IV ×2 (10:00→20:15)
[2024-09-17 14:46] VITALS: BMI 21.6
[2024-09-17] MEDS: DILAUDID 0.5 MG IV ×2 (15:25→19:16)
--- NOTE | 2024-09-17 15:32 | W.PN.GS2 ---
Addendum entered and electronically signed by Tony Barone MD 09/17/24 17:04:
I saw and examined the patient independently.
The Patient Services Manager's note was reviewed and I agree with the note, assessment and plan except where noted below.
Comment: This is a 69-year-old female with a history of stage IV rectal cancer who was originally diagnosed 10 years ago and treated surgically with partial colectomy and loop ileostomy with subsequent reversal complicated by anastomotic leak with
colostomy creation and subsequent reversal. She has known progression of her disease and recently started on Lonsurf. On 09/14 she began developing abdominal pain and was able to pass flatus or stools, she presented through the ED on 09/16 and
found to have small bowel obstruction either malignant versus adhesive. There is a significant amount of free fluid in her abdomen and inflammation. She has numerous hepatic lesions and there has been an increased size in her retroperitoneal,
mesenteric and peritoneal metastatic disease burden.
No acute general surgery intervention warranted, given her imaging findings I suspect that this is progression of her metastatic disease and that while surgery may palliate her symptoms will likely not improve her quality of life. Also given that
she is in the midst of immunotherapy coupled with her extensive prior surgical history, she is at high risk for morbidity.
Agree with surgical oncology consult.
Recommend palliative care consult. Patient is agreeable to this.
Would keep n.p.o. for now, continue IV fluids. If the patient has any emesis, please place NG tube to low intermittent wall suction.
Patient agreeable to plan of care above.
General surgery will continue to follow.
Original Note:
Today's Communication / Plan
-
NPO/IVF
Assessment / Plan
-
Hopely is a 69 yo female with a history of stage IV rectal cancer who was initially diagnosed about 10 years ago and treated surgically with partial colectomy and loop ileostomy creation at [facility] which was subsequently reversed.
Her reversal was complicated by an anastomotic leak with colostomy creation in management which was also able to be reversed. She notes she has been on an off different chemotherapies for many years and recently started on Lonsurf on 09/11. On 09/14
she began developing abdominal pain and was unable to pass flatus or stools. She presented through the ED on 09/16 for ongoing nausea, vomiting and abdominal distention. CT imaging with known peritoneal/hepatic metastatic disease present, Small
bowel distention present consistent with SBO which is either malignant or adhesive.
AFVSS
Long discussion with patient regarding goals of care given, she would would like to discuss palliative as well as chemotherapy options
Nausea improved/resolved. Passing some minimal flatus now. If vomiting recurs, may benefit from reattempt at NGT placement
--Will follow with medical management at this time
--Continue NPO for bowel rest
--IVF as per primary team
--Adjusted analgesics to include narcotics for better pain control
--Palliative care consult placed. Would benefit from oncology eval as well which is planned as per primary team discussion at beside
--Medical management as per primary team
Subjective Data
-
Date of Service: September 17, 2024
Patient seen and examined at bedside with Dr. Philip. Love n/v today. Has passed 'very little' flatus. Per RN, was incontinent of small amounts of stool earlier. Abdominal still present with bloating
Objective Data
-
Intake and Output
09/16/24 09/17/24 09/18/24
06:59 06:59 06:59
Intake Total 2360 / 2360
Balance 2360 / 2360
Intake:
Oral fluids 60 / 60
IV fluids (Total) 2300 / 2300
Other:
Number of approximated MODERATE 1
amounts of urine
Vital Signs
Temp Pulse Resp BP Pulse Ox
98.4 F 101 18 158/97 97
09/17/24 07:10 09/17/24 07:10 09/17/24 07:10 09/17/24 07:10 09/17/24 07:10
Lab Results
09/17/24 05:16
09/17/24 05:16
Calcium 8.6 mg/dl (8.4-10.2) 09/17/24 05:16
Total Bilirubin 1.2 mg/dl (0.2-1.3) 09/16/24 05:01
AST 39 U/L (14-36) H 09/16/24 05:01
ALT 19 U/L (0-35) 09/16/24 05:01
Alkaline Phosphatase 250 U/L (38-126) H 09/16/24 05:01
Total Protein 7.4 g/dl (6.3-8.2) 09/16/24 05:01
Albumin 3.9 g/dl (3.5-5.0) 09/16/24 05:01
Physical Exam
-
Chronically ill appearing
ABD soft, tender throughout, mild distention
--- NOTE | 2024-09-17 15:39 | CM ---
manager strategic marketing reviewed patient's chart and met with patient and patient lives with her spouse in a 2 story home, patient has a 1st floor set up. Patient was independent with adl's and ambulation, no dme, patient drives.
PCP: Arlyn Calvert
Pharmacy [facility]
Plan; Home no needs.
[2024-09-17 15:42] VITALS: BP 149/86
--- NOTE | 2024-09-17 19:43 | W.PN.HOSP.TC ---
Addendum entered and electronically signed by You Alexis MD 09/17/24 23:03:
Attending Addendum-
I saw and evaluated the patient. I reviewed the resident�s note and agree with findings and plan as documented in the resident�s note. Sub: patient complains of generalized abd pain non radiating no N/V. States she passed 'a little gas' and had a
small smear of stool. Full 12 point ROS reviewed and negative except as documented Exam: Vitals reviewed in chart GEN-NAD heart RRR lungs clear abd TTP generalized no rebound /tenderness mild distention pos BS
Plan:
# Ileus
-likely malignancy related
-CT abdomen pelvis images reviewed and some dilated small bowel loop, no true signs of bowel obstruction
-Maintain patient n.p.o. / IV fluid
-If develop significant vomiting will require NG tube placement for decompression
-Continue on as needed antiemetics/pain medication
-appreciate surg input
# Metastatic rectal adenocarcinoma
- started on Lonsurf 09/11
- CT abdomen pelvis showing worsening metastatic disease involving peritoneum
- c/s onc to determine prognosis
- t/c palliative care c/s after d/w onc
# HTN
- hold amlodipine
- prn hydralazine
# Leukocytosis
- reactive
- resolving
- cont to trend
# Sinus tachycardia
-from post chemo/volume depletion related
-cont IVF
DVT PPX - lovenox
Code- Full
Time spent coordinating care, review of plan of care with resident, personally reviewed records in EMR, med rec, consults, notes, labs, radiology, d/w nursing, surgery � 55 mins
Original Note:
Today's Communication/Plan
-
Follow-up with both oncology and palliative care
Assessment / Plan
Assessment / Plan
Adynamic ileus:
-Keep patient n.p.o. until she passes flatus or stool as recommended treatment is bowel rest and conservative management
-Continue IV fluids
-If any emesis use nasogastric tube
-Continue on antiemetics as needed and pain medication as needed
Leukocytosis:
� Reactive so will follow
Metastatic rectal adenocarcinoma:
-Consulted oncology, Dr. Mckeon.
-She is a poor candidate for surgery as she is at high risk for morbidity
-Patient would like to take measures that will improve her quality of life so is considering palliative care
-General Surgery is following
Essential hypertension:
-Patient's blood pressure is 149/86 and well-controlled today
-Continue hydralazine
Elevated liver enzymes:
-Alkaline phosphatase is 250 and AST is 39
-Continue to monitor these as they are chronic
DVT prophylaxis:
-Continue Lovenox 40 mg subcutaneous
Anticipated Discharge: 24 - 48 hours
Subjective/Interval History
-
Date of Service: September 17, 2024
She is a 69-year-old female who presented to the emergency department from home and her primary care physician is Dr. Stoddard. She presented with abdominal pain. She has a past medical history of metastatic rectal adenocarcinoma recently started
on the drug Lonsurf. She was admitted on 09/16 for abdominal pain in the epigastric region of her abdomen. Associated with nausea and green bilious vomiting for more than 2 days and inability to pass a bowel movement. She has had previous small
bowel obstructions in the past that have resided without any need for surgery. Abdominal CT scan taken on admission shows an increased size of retroperitoneal, eccentric and peritoneal metastatic disease. X-ray of the abdomen on admission shows
findings suggesting a developing small bowel obstruction. Upon interviewing the patient today she said that she had passed flatus in the morning prior to my arrival. She still has abdominal pain, rated as a 6 out of 10, which is located near her
umbilical region. No nausea no vomiting no shortness of breath, palpitations, diarrhea, constipation. Surgery was consulted and they came to an agreement that no surgery was necessary because it was most likely the Lonsurf her new
chemotherapeutic agent for her adenocarcinoma that was the probable cause of her abdominal pain.
Objective Data
-
Vital Signs:
Vital Signs
Temp Pulse Resp BP Pulse Ox
97.2 F 110 18 149/86 97
09/17/24 15:42 09/17/24 15:42 09/17/24 15:42 09/17/24 15:42 09/17/24 15:42
I&O
09/16/24 09/17/24 09/18/24
06:59 06:59 06:59
Intake Total 2360 / 2360 540 / 540
Balance 2360 / 2360 540 / 540
Review of Systems
-
History Source: Patient
Constitutional: Reports No Appetite; Denies Fever
Respiratory: Denies Cough, Trouble Breathing or Wheezing
Cardiac: Denies Chest Pain
Abdomen/GI: Reports Abdominal Pain and Bloated; Denies Vomiting or Diarrhea
Genitourinary: Denies Incontinence
Musculoskeletal: Denies Joint Pain, Joint Swelling or Muscle Pain
Skin: Denies Itching
Physical Exam
-
General: Appears in Distress
Respiratory: Clear to Auscultation
Cardiac: Regular Rhythm and S1/S2
GI: Soft and Tender (more in umbilical region)
Musculoskeletal: No Edema
Skin: Warm and Dry
Neuro: Awake, Alert, Oriented and AO x 3
Data Reviewed
-
Medical Tests (Nuc Med, Echo etc): Image personally visualized and interpreted and Report Reviewed by me
Labs: Labs Reviewed by me and Discussed with Physician
[2024-09-17] MEDS: LOVENOX 40 MG SC (20:15)
[2024-09-17 22:48] VITALS: BP 166/103
[2024-09-17] MEDS: APRESOLINE 10 MG IV (22:50)
[2024-09-17 23:37] VITALS: BP 149/86
[2024-09-18 04:18] LABS: Hematocrit 32.6 % (37.0-47.0); Mean Corp Hgb Conc. 30.7 g/dL (33.0-37.0); Mean Corpuscular Hgb 27.8 pg (27.0-31.0); Mean Corpuscular Volume 90.6 fL (81.0-99.0); Mean Platelet Volume 9.1 fL (7.4-10.4); Platelet Count 357 10^3/uL (130-400); Red Cell Dist. Width 16.5 % (11.5-14.5); White Blood Cell Count 8.9 10^3/uL (4.8-10.8)
[2024-09-18 04:40] LABS: Blood Urea Nitrogen 8 mg/dl (7-17); Calcium 8.5 mg/dl (8.4-10.2); Carbon Dioxide 27 mmol/L (22-30); Chloride 103 mmol/L (98-107); Estimated Creatinine Clearance 91 ml/min; Glucose 111 mg/dl (70-99); Potassium 3.1 mmol/L (3.5-5.1); Sodium 140 mmol/L (135-145); eGFR > 60.00
[2024-09-18] MEDS: DILAUDID 0.5 MG IV ×4 (04:53→19:42)
[2024-09-18] MEDS: D5LR 1000 IV ×3 (04:53→23:25)
[2024-09-18] MEDS: APRESOLINE 10 MG IV (05:24)
[2024-09-18] MEDS: KCL 270 MEQ IV (05:53)
[2024-09-18] MEDS: TORADOL 15 MG IV ×2 (05:59→14:01)
[2024-09-18 07:52] VITALS: BP 127/78
--- NOTE | 2024-09-18 08:53 | W.PN.HOSP.TC ---
Addendum entered and electronically signed by You Alexis MD 09/18/24 22:54:
Attending Addendum-
I saw and evaluated the patient. I reviewed the resident�s note and agree with findings and plan as documented in the resident�s note. Sub: generalized abd pain present but greatly improved. no N/V. States she passed 'a little gas' and had a small
smear of stool. Full 12 point ROS reviewed and negative except as documented Exam: Vitals reviewed in chart GEN-NAD heart RRR lungs clear abd TTP generalized no rebound /tenderness mild distention pos BS LE no edema
Plan:
# Ileus/pSBO
-likely malignancy related
-CT abdomen pelvis images reviewed and some dilated small bowel loop, no true signs of bowel obstruction
-Maintain patient n.p.o. / IV fluid ->advance to sips
-advance to clears in am if continues to improve
-If develop significant vomiting will require NG tube placement for decompression
-Continue on as needed antiemetics/pain medication
-appreciate surg input
# Stage IV rectal adenocarcinoma
- started on Lonsurf 09/11
- CT abdomen pelvis showing worsening metastatic disease involving peritoneum
- onc input appreciated
- if improves clinically may restart Lonsurf as OP
# HTN
- hold amlodipine while NPO
- prn hydralazine
# Leukocytosis
- reactive
- resolved
- cont to trend
# Sinus tachycardia
-volume depletion related
-cont IVF
DVT PPX - lovenox
Code- Full
ACP
Patient consented to discuss, was alone, time spent explanation of advance directives, changes in health status, patient�s health care wishes if the patient becomes unable to make health decisions, goals of care, code status, and prognosis-change to
DNR- 16 minutes
Time spent coordinating care, review of plan of care with resident, personally reviewed previous records in EMR, med rec, labs, radiology, d/w nursing, surgery, total time documented is exclusive of any additional time listed that was spent in
advance care planning discussion -�54 minutes
Original Note:
Today's Communication/Plan
-
Follow up with Palliative care
Assessment / Plan
Assessment / Plan
Adynamic ileus:
-Keep patient n.p.o. until she passes flatus or stool as recommended treatment is bowel rest and conservative management
-Patient was able to pass flatus today morning but has not yet had a bowel movement.
-Continue IV fluids
-If any emesis use nasogastric tube
-Continue on antiemetics as needed and pain medication as needed
Postnasal drip:
- Ordered Mucinex
Hypokalemia:
-potassium repleted
- Ordered magnesium levels to check if decreased
Leukocytosis:
� Resolved
Metastatic rectal adenocarcinoma:
-Consulted oncology, Dr. Mckeon (09/18)- Lonsurf does not cause bowel obstructions, so would like us to resume once symptoms subside
-Consulted with palliative care (09/18)- patient agrees to be transitioned to comfort care if she cannot maintain her ADL's/personal care, patient is FULL CODE, explained what DNR/Full code is at 6:35 pm to patient and she states no DNR and that she
would like resuscitative measures at the moment. She said she only wants to be DNR if she loses most of her her ADL's.
- Consulted surgery (09/18)- want medical treatment for bowel obstruction
-She is a poor candidate for surgery as she is at high risk for morbidity
-General Surgery is following
Essential hypertension:
-Patient's blood pressure is 149/86 and well-controlled today
-Continue hydralazine
Elevated liver enzymes:
-Alkaline phosphatase is 250 and AST is 39
-Continue to monitor outpatient these as they are chronic
DVT prophylaxis:
-Continue Lovenox 40 mg subcutaneous
Anticipated Discharge: 24 - 48 hours
Subjective/Interval History
-
Date of Service: September 18, 2024
Patient was admitted for paralytic ileus. She was able to pass gas today but has not yet had a bowel movement. Diet is NPO. She is able to drink liquids and wants to upgrade her diet. She has postnasal drip. She still has slight abdominal pain
in the epigastric region. No nausea, vomiting, shortness of breath. Oncology consulted.
Objective Data
-
Labs:
Laboratory Results
09/18/24
03:53
WBC 8.9
Hgb 10.0 L
Hct 32.6 L
Plt Count 357
Sodium 140
Potassium 3.1 L
Chloride 103
Carbon Dioxide 27
BUN 8
Creatinine 0.5 L
Glucose 111 H
Calcium 8.5
Vital Signs:
Vital Signs
Temp Pulse Resp BP Pulse Ox
98.1 F 105 18 127/78 96
09/18/24 07:52 09/18/24 07:52 09/18/24 07:52 09/18/24 07:52 09/18/24 07:52
I&O
09/17/24 09/18/24 09/19/24
06:59 06:59 06:59
Intake Total 2360 / 2360 1740 / 1740
Balance 2360 / 2360 1740 / 1740
Review of Systems
-
History Source: Patient
Constitutional: Denies Fever
Respiratory: Reports Other (Postnasal drip)
Abdomen/GI: Reports Abdominal Pain
Skin: Reports No Symptoms
Physical Exam
-
General: Appears Chronically Ill
Respiratory: Clear to Auscultation
Cardiac: Regular Rhythm and S1/S2
GI: Tender (Diffuse tenderness)
Musculoskeletal: No Edema
Skin: Warm and Dry
Neuro: Awake, Alert, Oriented and AO x 3
Data Reviewed
-
Medical Tests (Nuc Med, Echo etc): Image personally visualized and interpreted and Report Reviewed by me
Labs: Labs Reviewed by me and Discussed with Physician
--- NOTE | 2024-09-18 09:03 | CON.ONC ---
Impression
Impression
SBO/ileus
metastatic rectal cancer, diagnosed 2012 w/ liver mets; on and off treatment since diagnosis
recently started Lonsurf (oral chemo)
Paranoia
Plan
Plan
Mgmt of SBO per surgery/primary team
Etiology of SBO likely malignancy vs. adhesions from prior surgery
Lonsurf does not cause bowel obstruction
If symptoms improve w/ conservative measures, would resume Lonsurf
If symptoms persist, and she's not a surgical candidate, would have to consider comfort measures
Palliative care involved, reiterated to patient that she is not currently on hospice
Consider psychiatry consult if paranoia becomes more apparent (she was seen in the ER/crisis center a few months ago, but was not suicidal or homicidal, so was not admitted, and psych was not able to see her at that time)
We will follow along
Patient History
History of Present Illness
This is a 69yo F, very well known to me from the office.
She has a h/o stage IV rectal cancer, diagnosed in Sep 2013 with liver metastasis at diagnosis. She underwent chemo/RT and surgical resection of the primary tumor and hepatic metastasectomy. Since then, she's had slow progression/recurrence, treated
with liver-directed therapy and systemic chemotherapy on and off. She recently had disease progression on IV chemo (as well as progressive paranoia, fearing that she was being poisoned in our infusion room, and targeted by 'fascists'), and was
switched to oral Lonsurf, which she started last week. On 09/14, she developed increasing abd pain, vomiting, and no BMs. She presented to the ER on 09/17 and imaging suggested ileus/SBO. She's been on bowel rest, currently sipping water. She notes
passing minimal gas and now liquid per rectum. She's tolerating water by mouth, which is an improvement.
She asks if she's on hospice, says a nurse ('or someone pretending to be a nurse') told her she was on hospice.
Past-Medical/Surgical History
PMH/PSH - as per the HPI
SH - non smoker, no alcohol,
FH - N/C
Patient Medication
�Medication �Instructions �Recorded �Confirmed �Last Taken �Type
acetaminophen 500 mg tablet 1,000 mg PO Q4HPRN PRN mild pain 04/07/18 09/12/23 08/22/20 History
(Tylenol Extra Strength)
polyvinyl alcohol-povidone (PF) 1 drp BOTH EYES Q2HPRN PRN dry eyes 04/07/18 09/12/23 09/12/23 History
1.4 %-0.6 % eye drops in a
dropperette (Refresh Classic (PF))
peg 400-propylene glycol (PF) 0.4 1 ea BOTH EYES DAILYPRN PRN dryness 08/22/20 09/12/23 09/12/23 History
%-0.3 % eye drops in a dropperette
(Systane (PF))
amlodipine 5 mg tablet 5 mg PO BID Blood pressure 09/16/21 09/12/23 09/12/23 History
tramadol 50 mg tablet 50 mg PO TID Pain 08/03/23 09/12/23 09/12/23 History
oxycodone 5 mg tablet 5 mg PO Q4H PRN pain 09/16/24 Unknown History
Active Medications
Generic Name Dose Route Start Last Admin
Trade Name Freq PRN Reason Stop Dose Admin
Bisacodyl 10 mg 09/16/24 10:08
Bisacodyl 10 Mg Rectal Suppository RECTAL 10/14/24 10:07
[id number] PRN
constipation
Enoxaparin Sodium 40 mg 09/16/24 18:00 09/17/24 20:15
Enoxaparin Sodium 40 Mg/0.4 Ml Syringe SC 10/14/24 17:59 40 mg
QPM GLORIA Administration
Heparin Sodium (Porcine) 500 unit 09/17/24 03:15 09/17/24 05:18
Heparin Flush Pf (100 Unit/Ml) 5 Ml Syringe IV 10/15/24 03:14 500 unit
PER PROTOCOL GLORIA Administration
Hydralazine HCl 10 mg 09/16/24 14:23 09/18/24 05:24
Hydralazine 20 Mg/Ml Vial IV 10/14/24 14:22 10 mg
Q4HPRN PRN Administration
FOR SBP > 160 or DBP > 110
Hydromorphone HCl 0.5 mg 09/17/24 14:53 09/18/24 04:53
Hydromorphone 0.5 Mg/0.5 Ml Syringe IV 10/01/24 14:52 0.5 mg
Q3HPRN PRN Administration
severe pain
Dextrose/Lactated Ringer's 1,000 mls @ 100 mls/hr 09/16/24 10:08 09/18/24 04:53
D5lr IV 1,000 mls
.Q10H GLORIA Administration
Potassium Chloride 40 meq/ 270 mls @ 67.5 mls/hr 09/18/24 05:17 09/18/24 05:53
Dextrose IV 09/18/24 09:16 270 mls
NOW STA Administration
Ketorolac Tromethamine 15 mg 09/16/24 12:49 09/18/24 05:59
Ketorolac 15 Mg/Ml Injection IV 09/21/24 12:48 15 mg
Q6HPRN PRN Administration
mod pain
Ondansetron HCl 4 mg 09/16/24 10:08
Ondansetron 4 Mg/2 Ml Vial IV 10/14/24 10:07
Q6HPRN PRN
nausea and vomiting
Sodium Chloride 0 flush 09/16/24 11:00
Sodium Chloride 0.9% (Flush) Syringe IV 10/14/24 10:59
PER PROTOCOL GLORIA
Review of Systems
-
History Source: Patient
All Other Systems: Not reviewed unless documented
Constitutional: Reports No Appetite and Fatigue
EENT: Reports Other (sinus congestion)
Cardiac: Denies Chest Pain
GI: Reports Abdominal Pain, Vomiting and Bloated; Denies Nausea or Diarrhea
Musculoskeletal: Denies Joint Pain, Muscle Pain or Edema
Skin: Denies No Symptoms
Physical Exam
-
General: No Apparent Distress and Conversant
HEENT: Moist Mucous Membranes; Negative Jaundice
Cardiology: Normal Sinus Rhythm
Pulmonary: Clear
GI: Distended (slightly) and Other (slight diffuse tenderness); Negative Normal Bowel Sounds (rare BS)
Musculoskeletal: No Clubbing, No Cyanosis and No Edema
Extremities: No C/C/E
Neurology: Non Focal, No Lateralizing Symptoms and No Word Finding Difficulty
Skin: Warm and Dry
Labs
Lab Results
WBC 8.9 10^3/uL (4.8-10.8) 09/18/24 03:53
RBC 3.60 10^6/uL (4.20-5.40) L 09/18/24 03:53
Hgb 10.0 g/dL (12.0-16.0) L 09/18/24 03:53
Hct 32.6 % (37.0-47.0) L 09/18/24 03:53
MCV 90.6 fL (81.0-99.0) 09/18/24 03:53
MCH 27.8 pg (27.0-31.0) 09/18/24 03:53
MCHC 30.7 g/dL (33.0-37.0) L 09/18/24 03:53
RDW 16.5 % (11.5-14.5) H 09/18/24 03:53
Plt Count 357 10^3/uL (130-400) 09/18/24 03:53
MPV 9.1 fL (7.4-10.4) 09/18/24 03:53
Abs Immat Gran (auto) 0.1 10^3/uL (0-0.05) H 09/16/24 05:01
Absolute Neuts (auto) 16.4 10^3/uL (1.4-6.5) H 09/16/24 05:01
Absolute Lymphs (auto) 0.6 10^3/uL (1.2-3.4) L 09/16/24 05:01
Absolute Monos (auto) 1.2 10^3/uL (0.1-0.6) H 09/16/24 05:01
Absolute Eos (auto) 0.0 10^3/uL (0-0.7) 09/16/24 05:01
Absolute Basos (auto) 0.1 10^3/uL (0-0.2) 09/16/24 05:01
Immature Gran % 0.5 % (0-0.5) 09/16/24 05:01
Neutrophils % 89.3 % (42.2-75.2) H 09/16/24 05:01
Lymphocytes % 3.4 % (20.5-51.1) L 09/16/24 05:01
Monocytes % 6.4 % (1.7-9.3) 09/16/24 05:01
Eosinophils % 0.1 % (0-6) 09/16/24 05:01
Basophils % 0.3 % (0-2) 09/16/24 05:01
Creatinine 0.5 mg/dL (0.6-1.0) L 09/18/24 03:53
Vital Signs
Vital Signs
Temp Pulse Resp BP Pulse Ox
98.1 F 105 18 127/78 96
09/18/24 07:52 09/18/24 07:52 09/18/24 07:52 09/18/24 07:52 09/18/24 07:52
--- NOTE | 2024-09-18 12:06 | W.CON.PAL ---
Consultation
-
Date/Time Consultation Requested: 09/17/2024
Date/Time Consultation Performed: 09/18/2024
Requesting Provider: Vilma Ellison
Performing Provider: Dr. Echeverria
Reason for Consult: Goals of Care Discussion
Primary Diagnosis: IV rectal adenocarcinoma
Consult Requested By: Patient's Physician
Reason for Admission
Illness Course/HPI
60 mins total floor time
Ashley is a 69 y/o female with Stage IV rectal adenocarcinoma since 2012, currently recently started on lonsurf regimen, presented to hospital with n/v concerning for SBO.
Palliative care consult placed by general surgery to discuss goals of care.
Functional Status
Ashley lives in a 2 velvet home with her spouse [facility]. She is at her baseline independent of her ADLs and does not use any assistive device. she still drives. she is able to go up the stairs once daily, but has mostly been staying on the main
floor.
She reports that her may have some early cognitive changes. she is considering having her stepdaughter be her medical poa jointy with her . she has other children are not involved regulary with her at this time
Goals of Care Discussion
-
Individuals Present for Discussion & Relationship to Patient:
Patient
Patient able to participate in discussion at time of visit: Yes
Patient Goals
Patients goals are treatment oriented, and is aware plan to start lonsurf once bowel issues have resolved.
If her ability to maintain her ADLs/personal care needs declines she would rather transition to comfort care.
She does not want CPR or intubtion - code status to be changed
We discussed home palliative care services, would be agreeable.
Pain & Symptom Assessment
-
At start of visit severe pain, received pain medictation, pain subsided over 20 mins.
No vomiting today, but does report cough with phlegm that is hard to get out - causing some stomach secretions to come up when coughing. requesitng mucinex.
denies other symptoms at time of visit.
Objective Data
-
Objective Data:
Vital Signs
Temp Pulse Resp BP Pulse Ox
98.1 F 105 18 127/78 96
09/18/24 07:52 09/18/24 07:52 09/18/24 07:52 09/18/24 07:52 09/18/24 07:52
Laboratory Results
09/18/24 03:53
09/18/24 03:53
Total Protein 7.4 g/dl (6.3-8.2) 09/16/24 05:01
Albumin 3.9 g/dl (3.5-5.0) 09/16/24 05:01
Palliative Performance Scale
Palliative Performance Scale:
PPS Level Ambulation Activity & Evidence of Disease Self Care Intake Conscious Level
100% Full Normal Activity & Work; Full Intake Full
No Evidence of Disease
90% Full Normal Activity & Work; Full Normal Full
Some Evidence of Disease
80% Full Normal Activity with Effort Full Normal or Full
Some Evidence of Disease Reduced
70% Reduced Unable Normal Job/Work Full Normal or Full
Significant Disease Reduced
60% Reduced Unable Hobby/Housework Occasional Normal or Full or Confusion
Significant Disease Assistance Reduced
50% Mainly Sit/Lie Unable to do Any Work Considerable Normal or Full or Confusion
Extensive Disease Assistance Req'd Reduced
40% Mainly in Bed Unable to do Most Activity Mainly Assistance Normal or Full or Drowsy;
Extensive Disease Reduced +/- Confusion
30% Totally Bed Unable to do Any Activity Total Care Normal or Full or Drowsy;
Bound Extensive Disease Reduced +/- Confusion
20% Totally Bed Bound Unable to do Any Activity Total Care Minimal to Full or Drowsy;
Extensive Disease Sips +/- Confusion
10% Totally Bed Bound Unable to do Any Activity Total Care Mouth Care Drowsy or Coma;
Extensive Disease Only +/- Confusion
0%
PPS Score Level:
Palliative Performance Score Response
Palliative Performance Score Response: 40%
Physical Exam
-
General: No Apparent Distress and Comfortable
HEENT: Moist Mucous Membranes
Neuro: Awake and Alert
Psych: Calm
Assessment / Plan
-
Assessment/Plan:
Goals are treatment oriented, and would continue treatment unlesss ability to perform personal care starts to change, then would transition to comfort care.
CODE Status discussed - patient does not want CPR/intubation. - DNR
Agreeable to outpatient palliative care
--- NOTE | 2024-09-18 12:58 | W.PN.GS2 ---
Today's Communication / Plan
-
--Medical management of malignant bowel obstruction
--Sips of clears for comfort, consider clears tomorrow if continues to improve
Assessment / Plan
-
Ms Rutledge is a 69 yo female with a history of stage IV rectal cancer who was initially diagnosed about 10 years ago and treated surgically with partial colectomy and loop ileostomy creation at [facility] which was subsequently reversed.
Her reversal was complicated by an anastomotic leak with colostomy creation in management which was also able to be reversed. She notes she has been on an off different chemotherapies for many years and recently started on Lonsurf on 09/11. On 09/14
she began developing abdominal pain and was unable to pass flatus or stools. She presented through the ED on 09/16 for ongoing nausea, vomiting and abdominal distention. CT imaging with known peritoneal/hepatic metastatic disease present, Small
bowel distention present consistent with SBO which is either malignant or adhesive.
AFVSS
Some signs of clinical improvement
Difficult situation with limited role for surgical intervention. High risk for operative complications given multiple prior operations, malnutrition, and active chemotherapy. No plans for surgical intervention at this time. Surgical invention at
any point in time in the future would be palliative at best and would not significantly impact her QOL or underlying disease process. All questions answered.
--Medical management of malignant bowel obstruction
--Sips of clears for comfort, consider clears tomorrow if continues to improve
--Palliative care and Oncology notes reviewed, appreciated help
Subjective Data
-
Date of Service: September 18, 2024
Reports improvement - less abdominal pain, passed a small BM, no flatus. No nausea or emesis. Minimal ambulation.
Objective Data
-
Intake and Output
09/17/24 09/18/24 09/19/24
06:59 06:59 06:59
Intake Total 2360 / 2360 1740 / 1740
Balance 2360 / 2360 1740 / 1740
Intake:
Oral fluids 60 / 60 240 / 240
IV fluids (Total) 2300 / 2300 1500 / 1500
Other:
Number of approximated MODERATE 1 2
amounts of urine
Vital Signs
Temp Pulse Resp BP Pulse Ox
98.1 F 105 18 127/78 96
09/18/24 07:52 09/18/24 07:52 09/18/24 07:52 09/18/24 07:52 09/18/24 07:52
Lab Results
09/18/24 03:53
09/18/24 03:53
Calcium 8.5 mg/dl (8.4-10.2) 09/18/24 03:53
Total Bilirubin 1.2 mg/dl (0.2-1.3) 09/16/24 05:01
AST 39 U/L (14-36) H 09/16/24 05:01
ALT 19 U/L (0-35) 09/16/24 05:01
Alkaline Phosphatase 250 U/L (38-126) H 09/16/24 05:01
Total Protein 7.4 g/dl (6.3-8.2) 09/16/24 05:01
Albumin 3.9 g/dl (3.5-5.0) 09/16/24 05:01
Physical Exam
-
Gen: NAD
Abd: soft, mild tenderness in lower abdomen, mild distension, non-peritoneal, prior incisions well healed
--- NOTE | 2024-09-18 13:49 | PN.CDI ---
CDI
- -
CDI:
Physician Documentation Request
Admit Date: 09/16/24 09:33
Dear Doctor Dianne,
Patient presented to the ED with 'generalized weakness, fatigue, lightheadedness with standing...She notes decreased oral intake and has not passed a bowel movement for at least the past 3 to 4 days...Patient states she has not been able to take her
medications due to persistent nausea and vomiting'
Hospitalist progress notes states 'Adynamic ileus'
General surgery progress notes ' Small bowel distention present consistent with SBO which is either malignant or adhesive....medial management for malignant bowel obstruction'
In an attempt to clarify potentially conflicting documentation, please clarify the diagnosis.
Small bowel obstruction
Adynamic ileus
Other
Use of terms such as suspected, likely, concern for, or probable (associated with a specific diagnosis that is being evaluated, monitored, or treated as if it exists) are acceptable and can be coded in the inpatient setting, when documented at the
time of discharge.
Thank you,
Shannan Rivas RN, BSN
CDI Specialist
tiger text
Please use your independent medical judgment in providing your response.
--- NOTE | 2024-09-18 13:56 | PN.CDI ---
CDI
- -
CDI:
Physician Documentation Request
Admit Date: 09/16/24 09:33
Dear Doctor Dianne,
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
<75% estimated needs for > 7 days, mild loss of subcutaneous fat (orbital with dark circles and somewhat hallow and muscle (depression of temporal)'
Assessment subcutaneous loss over orbital with dark circles somewhat hallow severity-mild, Muscle loss over temporal severity mild
Based on the above information and your assessment, which of the following most accurately represents the patient's nutritional status?
Moderate Malnutrition
other malnutrition- please specify
Other (please specify)
[place] Criteria ([facility] Hospitalist 2017)
2 or more criteria must be present for either
non severe or severe malnutrition
Note that the criteria differs related to the
presence of an acute or chronic illness
Acute Illness Chronic Illness
Energy Intake Non Severe: <75% for >7 days Non Severe: <75% for >1 month
Severe: <50% for >5 days Severe: <75% for >1 month
Weight Loss Non Severe: 1-2% over 1 week Non Severe: 5% over 1 month
5% over 1 month 7.5% over 3 months
7.5% over 3 months 10% over 6 months
1 year N/A 20% over 1 year
Severe: >2% over 1 week Severe: >5% over 1 month
>5% over 1 month >7.5% over 3 months
>7.5% over 3 months >10% over 6 months
1 year N/A >20% over 1 year
Body Fat Non Severe: Mild Decrease Non Severe: Mild Loss
Severe: Moderate Decrease Severe: Severe Loss
Muscle Mass Non Severe: Mild Decrease Non Severe: Mild Loss
Severe: Moderate Decrease Severe: Severe Loss
Fluid Accumulation Non Severe: Mild Accumulation Non Severe: Mild Accumulation
Severe: Moderate to severe Severe: Moderate to severe
accumulation accumulation
Reduced [employer] Professor Strength Non Severe: N/A Non Severe: N/A
Severe: Measurably reduced Severe: Measurably reduced
Use of terms such as suspected, likely, concern for, or probable (associated with a specific diagnosis that is being evaluated, monitored, or treated as if it exists) are acceptable and can be coded in the inpatient setting, when documented at the
time of discharge.
Thank you,
Shannan Rivas RN, BSN
CDI Specialist
tiger text
Please use your independent medical judgment in providing your response.
[2024-09-18] MEDS: MUCINEX 600 MG PO (15:00)
[2024-09-18 15:05] VITALS: BP 158/96
[2024-09-18] MEDS: LOVENOX 40 MG SC (17:13)
[2024-09-18 23:18] VITALS: BP 158/96
[2024-09-18] MEDS: D5LR IV (23:19)
[2024-09-19] VITALS (7 sets, daily range): BP systolic 136–174; BP diastolic 88–101
[2024-09-19] MEDS: DILAUDID 0.5 MG IV ×5 (01:10→20:05)
[2024-09-19 06:46] LABS: Magnesium 1.5 mg/dl (1.6-2.3)
--- NOTE | 2024-09-19 07:52 | W.PN.ONC2 ---
Today's Communication / Plan
-
Continue supportive care for now. She is DNR. Plans to resume Lonsurf if she recovers sufficiently.
Impression
Impression
SBO/ileus
metastatic rectal cancer, diagnosed 2012 w/ liver mets; on and off treatment since diagnosis
recently started Lonsurf (oral chemo)
Paranoia
Plan
Plan
Continue conservative management of SBO
Etiology of SBO likely malignancy vs. adhesions from prior surgery
Lonsurf does not cause bowel obstruction
If symptoms improve w/ conservative measures, would resume Lonsurf
If symptoms persist, and she's not a surgical candidate, would have to consider comfort measures
Palliative care involved, reiterated to patient that she is not currently on hospice
Consider psychiatry consult if paranoia becomes more apparent (she was seen in the ER/crisis center a few months ago, but was not suicidal or homicidal, so was not admitted, and psych was not able to see her at that time)
We will follow along
Subjective/Objective
Chief Complaint
ACS oncology
Subjective
Pain seems to be relatively well-controlled. Seems to be tolerating sips of clears slightly better than previously.
Vital Signs:
Vital Signs
Temp Pulse Resp BP Pulse Ox
98.1 F 98 18 158/96 95
09/18/24 23:18 09/18/24 23:18 09/18/24 23:18 09/18/24 23:18 09/18/24 23:18
Lab Results:
Laboratory Data
WBC 8.9 10^3/uL (4.8-10.8) 09/18/24 03:53
Hgb 10.0 g/dL (12.0-16.0) L 09/18/24 03:53
Plt Count 357 10^3/uL (130-400) 09/18/24 03:53
eGFR > 60.00 09/18/24 03:53
[2024-09-19] MEDS: MAGNESIUM SULFATE 100 IV (09:38)
[2024-09-19 09:58] LABS: Blood Urea Nitrogen 5 mg/dl (7-17); Calcium 8.5 mg/dl (8.4-10.2); Carbon Dioxide 26 mmol/L (22-30); Chloride 102 mmol/L (98-107); Estimated Creatinine Clearance 91 ml/min; Glucose 101 mg/dl (70-99); Potassium 3.3 mmol/L (3.5-5.1); Sodium 137 mmol/L (135-145); eGFR > 60.00
--- NOTE | 2024-09-19 10:40 | W.PN.GS2 ---
Today's Communication / Plan
-
Adv to [facility]
Assessment / Plan
-
Ms Rutledge is a 69 yo female with a history of stage IV rectal cancer who was initially diagnosed about 10 years ago and treated surgically with partial colectomy and loop ileostomy creation at [facility] which was subsequently reversed.
Her reversal was complicated by an anastomotic leak with colostomy creation in management which was also able to be reversed. She notes she has been on an off different chemotherapies for many years and recently started on Lonsurf on 09/11. On 09/14
she began developing abdominal pain and was unable to pass flatus or stools. She presented through the ED on 09/16 for ongoing nausea, vomiting and abdominal distention. CT imaging with known peritoneal/hepatic metastatic disease present, Small
bowel distention present consistent with SBO which is either malignant or adhesive.
AFVSS
Some signs of clinical improvement
Difficult situation with limited role for surgical intervention. High risk for operative complications given multiple prior operations, malnutrition, and active chemotherapy. No plans for surgical intervention at this time. Surgical invention at
any point in time in the future would be palliative at best and would not significantly impact her QOL or underlying disease process. All questions answered.
--Medical management of malignant bowel obstruction
-- Adv to CLD
--Palliative care and Oncology notes reviewed, appreciated help
Subjective Data
-
Date of Service: September 19, 2024
Feeling better this morning, passed a large BM with relief, denies n/v, daksha sips of clears, pain controlled
Objective Data
-
Intake and Output
09/18/24 09/19/24 09/20/24
06:59 06:59 06:59
Intake Total 1740 / 1740 1800 / 1800
Balance 1740 / 1740 1800 / 1800
Intake:
Oral fluids 240 / 240 480 / 480
Amount of oral supplement(s) 120 / 120
consumed
IV fluids (Total) 1500 / 1500 1200 / 1200
Other:
Number of approximated SMALL 1
amounts of urine
Number of approximated MODERATE 2 1
amounts of urine
Vital Signs
Temp Pulse Resp BP Pulse Ox
98.2 F 97 18 161/98 95
09/19/24 07:06 09/19/24 07:06 09/19/24 07:06 09/19/24 07:06 09/19/24 08:00
Lab Results
09/18/24 03:53
09/19/24 05:40
Calcium 8.5 mg/dl (8.4-10.2) 09/19/24 05:40
Magnesium 1.5 mg/dl (1.6-2.3) L 09/19/24 05:40
Total Bilirubin 1.2 mg/dl (0.2-1.3) 09/16/24 05:01
AST 39 U/L (14-36) H 09/16/24 05:01
ALT 19 U/L (0-35) 09/16/24 05:01
Alkaline Phosphatase 250 U/L (38-126) H 09/16/24 05:01
Total Protein 7.4 g/dl (6.3-8.2) 09/16/24 05:01
Albumin 3.9 g/dl (3.5-5.0) 09/16/24 05:01
Physical Exam
-
Gen: NAD
Abd: soft, mild distention, mild ttp diffusely
[2024-09-19] MEDS: D5LR 1000 IV ×2 (10:41→20:06)
[2024-09-19] MEDS: MUCINEX 600 MG PO ×2 (10:52→22:44)
[2024-09-19] MEDS: APRESOLINE 10 MG IV ×2 (12:40→15:56)
[2024-09-19] MEDS: KCL 270 MEQ IV (12:51)
--- NOTE | 2024-09-19 12:56 | W.PN.PAL2 ---
Today's Communication
-
Met with patient. she is doing much better today. pain controlled with current medications. to trial advanced diet today.
Patient confirms that at the end of life when her condition starts to decline she would want DNR, but no longer wishes to be DNR during current hospital stay. reports she was frightened when they put the dnr wristband on her yesterday, and does not
want that at this time. will change back to full code status.
Answered patient's questions regarding advanced care planning, as she wishes her step-daughter carolin and her spouse to be joint medical poa.
Goals are treatment oriented.
floor time 25 min
Assessment / Plan
-
Assessment/Plan:
Goals are treatment oriented, and would continue treatment unlesss ability to perform personal care starts to change, then would transition to comfort care.
Agreeable to outpatient palliative care
Reason for Admission
Illness Course/HPI
60 mins total floor time
Ashley is a 69 y/o female with Stage IV rectal adenocarcinoma since 2012, currently recently started on lonsurf regimen, presented to hospital with n/v concerning for SBO.
Palliative care consult placed by general surgery to discuss goals of care.
Functional Status
Ashley lives in a 2 velvet home with her spouse in [facility]. She is at her baseline independent of her ADLs and does not use any assistive device. she still drives. she is able to go up the stairs once daily, but has mostly been staying on the main
floor.
She reports that her may have some early cognitive changes. she is considering having her stepdaughter be her medical poa jointy with her . she has other children are not involved regulary with her at this time
Goals of Care Discussion
-
Individuals Present for Discussion & Relationship to Patient:
Patient
Patient able to participate in discussion at time of visit: Yes
Patient Goals
Patients goals are treatment oriented, and is aware plan to start lonsurf once bowel issues have resolved.
If her ability to maintain her ADLs/personal care needs declines she would rather transition to comfort care.
She does not want CPR or intubtion when she has transitioned to hospice. but wants hospital code status to be changed back to full code.
We discussed home palliative care services, would be agreeable.
Objective Data
-
Objective Data:
Vital Signs
Temp Pulse Resp BP Pulse Ox
98.2 F 97 18 161/98 95
09/19/24 07:06 09/19/24 07:06 09/19/24 07:06 09/19/24 07:06 09/19/24 08:00
Laboratory Results
09/18/24 03:53
09/19/24 05:40
Total Protein 7.4 g/dl (6.3-8.2) 09/16/24 05:01
Albumin 3.9 g/dl (3.5-5.0) 09/16/24 05:01
Palliative Performance Scale
Palliative Performance Scale:
PPS Level Ambulation Activity & Evidence of Disease Self Care Intake Conscious Level
100% Full Normal Activity & Work; Full Intake Full
No Evidence of Disease
90% Full Normal Activity & Work; Full Normal Full
Some Evidence of Disease
80% Full Normal Activity with Effort Full Normal or Full
Some Evidence of Disease Reduced
70% Reduced Unable Normal Job/Work Full Normal or Full
Significant Disease Reduced
60% Reduced Unable Hobby/Housework Occasional Normal or Full or Confusion
Significant Disease Assistance Reduced
50% Mainly Sit/Lie Unable to do Any Work Considerable Normal or Full or Confusion
Extensive Disease Assistance Req'd Reduced
40% Mainly in Bed Unable to do Most Activity Mainly Assistance Normal or Full or Drowsy;
Extensive Disease Reduced +/- Confusion
30% Totally Bed Unable to do Any Activity Total Care Normal or Full or Drowsy;
Bound Extensive Disease Reduced +/- Confusion
20% Totally Bed Bound Unable to do Any Activity Total Care Minimal to Full or Drowsy;
Extensive Disease Sips +/- Confusion
10% Totally Bed Bound Unable to do Any Activity Total Care Mouth Care Drowsy or Coma;
Extensive Disease Only +/- Confusion
0%
PPS Score Level:
--- NOTE | 2024-09-19 13:37 | CM ---
Chart reviewed and patient was seen by Palliative Care, per Palliative Care notes plan to follow as outpatient, continuous pillowcase cutter provided patient with Guide to Health care Decisions including POA paperwork to review. Patient to return to home at
discharge.
Plan; Home with spouse when stable.
--- NOTE | 2024-09-19 16:35 | W.PN.HOSP.TC ---
Addendum entered and electronically signed by You Alexis MD 09/19/24 22:38:
Attending Addendum-
I saw and evaluated the patient. I reviewed the resident�s note and agree with findings and plan as documented in the resident�s note. Sub: had bm and passing gas per patient. no N/V. abd pain present but greatly improved. Full 12 point ROS reviewed
and negative except as documented Exam: Vitals reviewed in chart GEN-NAD heart RRR lungs clear abd NT ND no rebound /tenderness pos BS LE no edema
Plan:
#SBO
-likely malignancy related
-resolving
-CT abdomen pelvis images reviewed and some dilated small bowel loop, no true signs of bowel obstruction
-NPO->CLD
-advance to LRD in am if continues to improve
-If develop significant vomiting will require NG tube placement for decompression
-Continue on as needed antiemetics/pain medication
-appreciate surg input
# Hypokalemia
- replete aggressively
- rpeat BMP in am
# Hypomagnesemia
- replete
- repeat in am
# Stage IV rectal adenocarcinoma
- started on Lonsurf 09/11
- CT abdomen pelvis showing worsening metastatic disease involving peritoneum
- onc input appreciated
- if improves clinically may restart Lonsurf as OP
# HTN
- restart amlodipine taking BID as OP
- prn hydralazine
# Leukocytosis
- reactive
- resolved
- cont to trend
# Sinus tachycardia
- resting tachy
- cont CCB
DVT PPX - lovenox
Code- Full
Dispo Eventual DC home refusing SNF
ACP
Patient consented to discuss, was alone, time spent explanation of advance directives, changes in health status, patient�s health care wishes if the patient becomes unable to make health decisions, goals of care, code status, and prognosis-change
back to FULL CODE- 'i am not a hospice patient you misunderstood me. If im dying ill change to DNR then' - 18 minutes
Time spent coordinating care, review of plan of care with resident, personally reviewed previous records in EMR, med rec, labs, radiology, d/w nursing, surgery, total time documented is exclusive of any additional time listed that was spent in
advance care planning discussion -�52 minutes
Original Note:
Today's Communication/Plan
-
See how patient tolerates clear liquids
Plan to discharge patient tomorrow if possible
Assessment / Plan
Assessment / Plan
Adynamic ileus:
-Patient had a large bowel movement in the a.m., 09/19
-Patient is on clear liquids. Assess possibility of transition to low residue tonight 09/19
-Continue IV fluids
-If any emesis use nasogastric tube
-Continue on antiemetics as needed and pain medication as needed
Postnasal drip:
- Ordered Mucinex
Hypokalemia:
-potassium repleted
Hypomagnesemia:
-Magnesium level 1.5, 09/19
-Magnesium repleted
Leukocytosis:
� Resolved
Metastatic rectal adenocarcinoma:
-Consulted oncology, Dr. Mckeon (09/18)- Lonsurf does not cause bowel obstructions, so would like us to resume once symptoms subside
-Consulted with palliative care (09/18)- patient agrees to be transitioned to comfort care if she cannot maintain her ADL's/personal care, patient is FULL CODE, explained what DNR/Full code is at 6:35 pm to patient and she states no DNR and that she
would like resuscitative measures at the moment. She said she only wants to be DNR if she loses most of her her ADL's.
- Consulted surgery (09/18)- want medical treatment for bowel obstruction
-She is a poor candidate for surgery as she is at high risk for morbidity
-General Surgery is following
Essential hypertension:
-Patient's blood pressure is 174/101
-Ordered hydralazine 10 mg IV drip x 2, 09/19
-Starting patient on amlodipine 5 Mg p.o. tonight
Elevated liver enzymes:
-Alkaline phosphatase is 250 and AST is 39
-Continue to monitor outpatient these as they are chronic
DVT prophylaxis:
-Continue Lovenox 40 mg subcutaneous
Anticipated Discharge: 24 - 48 hours
Subjective/Interval History
-
Date of Service: September 19, 2024
No overnight events.
She had a large bowel movement today in the AM. Currently on clear liquids.
Objective Data
-
Labs:
Laboratory Results
09/19/24
05:40
Sodium 137
Potassium 3.3 L
Chloride 102
Carbon Dioxide 26
BUN 5 L
Creatinine 0.5 L
Glucose 101 H
Calcium 8.5
Vital Signs:
Vital Signs
Temp Pulse Resp BP Pulse Ox
98.4 F 101 17 174/101 96
09/19/24 15:23 09/19/24 15:23 09/19/24 15:23 09/19/24 15:56 09/19/24 15:23
I&O
09/18/24 09/19/24 09/20/24
06:59 06:59 06:59
Intake Total 1740 / 1740 1800 / 1800
Balance 1740 / 1740 1800 / 1800
Review of Systems
-
History Source: Patient
Constitutional: Denies Fever or Chills
Respiratory: Denies Cough
Cardiac: Denies Chest Pain or Syncope
Abdomen/GI: Reports Abdominal Pain; Denies Diarrhea or Constipated
Musculoskeletal: Denies Muscle Pain
Physical Exam
-
Respiratory: Clear to Auscultation
Cardiac: Regular Rhythm and S1/S2
GI: Tender (Generalized tenderness)
Skin: Warm and Dry
Neuro: Awake, Alert, Oriented and AO x 3
Data Reviewed
-
Medical Tests (Nuc Med, Echo etc): Image personally visualized and interpreted and Discussed with Physician
Labs: Labs Reviewed by me and Discussed with Physician
[2024-09-19] MEDS: LOVENOX 40 MG SC (17:21)
[2024-09-19] MEDS: NORVASC 5 MG PO (22:37)
[2024-09-20 05:26] LABS: Hematocrit 34.2 % (37.0-47.0); Hemoglobin 10.4 g/dL (12.0-16.0); Mean Corp Hgb Conc. 30.4 g/dL (33.0-37.0); Mean Corpuscular Hgb 27.7 pg (27.0-31.0); Mean Corpuscular Volume 91.2 fL (81.0-99.0); Mean Platelet Volume 8.8 fL (7.4-10.4); Platelet Count 330 10^3/uL (130-400); Red Blood Cell Count 3.75 10^6/uL (4.20-5.40); Red Cell Dist. Width 17.2 % (11.5-14.5); White Blood Cell Count 8.1 10^3/uL (4.8-10.8)
[2024-09-20 05:48] LABS: Blood Urea Nitrogen 4 mg/dl (7-17); Calcium 8.6 mg/dl (8.4-10.2); Carbon Dioxide 28 mmol/L (22-30); Chloride 102 mmol/L (98-107); Estimated Creatinine Clearance 91 ml/min; Glucose 103 mg/dl (70-99); Magnesium 1.8 mg/dl (1.6-2.3); Potassium 3.6 mmol/L (3.5-5.1); Sodium 138 mmol/L (135-145); eGFR > 60.00
[2024-09-20] MEDS: D5LR 1000 IV (06:09)
[2024-09-20] MEDS: DILAUDID 0.5 MG IV ×3 (06:38→20:34)
[2024-09-20 07:26] VITALS: BP 159/80
[2024-09-20] MEDS: NORVASC 5 MG PO ×2 (07:45→20:30)
--- NOTE | 2024-09-20 08:41 | W.PN.HOSP.TC ---
Addendum entered and electronically signed by You Alexis MD 09/20/24 23:36:
Attending Addendum-
I saw and evaluated the patient. I reviewed the resident�s note and agree with findings and plan as documented in the resident�s note. Sub: + bm and + flatus. no N/V. abd pain improved. Full 12 point ROS reviewed and negative except as documented
Exam: Vitals reviewed in chart GEN-NAD heart RRR lungs clear abd NT ND no rebound /tenderness pos BS LE no edema
Plan:
#SBO
-likely malignancy related
-resolving
-CT abdomen pelvis images reviewed and some dilated small bowel loop, no true signs of bowel obstruction
-advance to LRD
-If develop significant vomiting will require NG tube placement for decompression
-Continue on as needed antiemetics/pain medication
-appreciate surg input
- DC if daksha LRD
# Hypokalemia
- resolved
- replete aggressively
- repeat BMP in am
# Hypomagnesemia
- resolved
- repeat in am
# Stage IV rectal adenocarcinoma
- started on Lonsurf 09/11
- CT abdomen pelvis showing worsening metastatic disease involving peritoneum
- onc input appreciated
- if improves clinically may restart Lonsurf as OP
# HTN
- restart amlodipine taking BID as OP
- prn hydralazine
# Leukocytosis
- reactive
- resolved
- cont to trend
# Sinus tachycardia
- resting tachy
- cont CCB
DVT PPX - lovenox
Code- Full
Dispo DC home in am
Time spent coordinating care, review of plan of care with resident, personally reviewed records in EMR, med rec, consults, notes, labs, radiology, d/w nursing � 53 mins
Original Note:
Today's Communication/Plan
-
- plan patient for discharge after discussing with surgery
Assessment / Plan
Assessment / Plan
Adynamic ileus:
-transitioned patient to low residue diet for 15:00 09/20
-Patient had a large bowel movement in the a.m., 09/19
-Continue IV fluids
-If any emesis use nasogastric tube
-Continue on antiemetics as needed and pain medication as needed
Postnasal drip:
- Ordered Mucinex
Hypokalemia:
- potassium is 3.6 09/20
-potassium repleted 09/19
Hypomagnesemia:
-Magnesium level 1.5, 09/19
-Magnesium repleted
Leukocytosis:
� Resolved
Metastatic rectal adenocarcinoma:
-Consulted oncology, Dr. Mckeon (09/18)- Lonsurf does not cause bowel obstructions, so would like us to resume once symptoms subside
-Consulted with palliative care (09/18)- patient agrees to be transitioned to comfort care if she cannot maintain her ADL's/personal care, patient is FULL CODE, explained what DNR/Full code is at 6:35 pm to patient and she states no DNR and that she
would like resuscitative measures at the moment. She said she only wants to be DNR if she loses most of her her ADL's.
- Consulted surgery (09/18)- want medical treatment for bowel obstruction
-She is a poor candidate for surgery as she is at high risk for morbidity
-General Surgery is following
Essential hypertension:
- Started patient on 5 mg bid, 09/20
-Patient's blood pressure is 174/101
-Ordered hydralazine 10 mg IV drip x 2, 09/19
Elevated liver enzymes:
-Alkaline phosphatase is 250 and AST is 39
-Continue to monitor outpatient these as they are chronic
DVT prophylaxis:
-Continue Lovenox 40 mg subcutaneous
Anticipated Discharge: 24 - 48 hours
Subjective/Interval History
-
Date of Service: September 20, 2024
No overnight events.
States that she is very hungry and tolerating food well.
Objective Data
-
Labs:
Laboratory Results
09/20/24
05:08
WBC 8.1
Hgb 10.4 L
Hct 34.2 L
Plt Count 330
Sodium 138
Potassium 3.6
Chloride 102
Carbon Dioxide 28
BUN 4 L
Creatinine 0.5 L
Glucose 103 H
Calcium 8.6
Vital Signs:
Vital Signs
Temp Pulse Resp BP Pulse Ox
98.1 F 93 20 159/80 95
09/20/24 07:26 09/20/24 07:26 09/20/24 07:26 09/20/24 07:26 09/20/24 08:00
I&O
09/19/24 09/20/24 09/21/24
06:59 06:59 06:59
Intake Total 1800 / 1800 3170 / 3170
Balance 1800 / 1800 3170 / 3170
Review of Systems
-
History Source: Patient
Constitutional: Denies Fever or Chills
Respiratory: Denies Cough or Trouble Breathing
Cardiac: Denies Chest Pain
Abdomen/GI: Reports Abdominal Pain; Denies Nausea, Vomiting or Diarrhea
Physical Exam
-
General: Appears Chronically Ill
Respiratory: Clear to Auscultation
Cardiac: Regular Rhythm and S1/S2
GI: Normal Bowel Sounds and Tender (Epigastric region)
Data Reviewed
-
Medical Tests (Nuc Med, Echo etc): Image personally visualized and interpreted and Discussed with Physician
Labs: Labs Reviewed by me and Discussed with Physician
--- NOTE | 2024-09-20 10:08 | W.PN.ONC ---
Today's Communication / Plan
-
SBO likely related to disease not medication
If symptoms improve w/ conservative measures, would resume Lonsurf
If symptoms persist, and she's not a surgical candidate, would have to consider comfort measures
Palliative care involved, reiterated to patient that she is not currently on hospice
We will follow along
Impression
Impression
SBO/ileus
metastatic rectal cancer, diagnosed 2012 w/ liver mets; on and off treatment since diagnosis recently started Lonsurf (oral chemo)
Paranoia
Anemia
Subjective/Objective
Subjective/Objective
Some improvement today. Tolerating liquids.
Vital Signs:
Vital Signs
Temp Pulse Resp BP Pulse Ox
98.1 F 93 20 159/80 95
09/20/24 07:26 09/20/24 07:26 09/20/24 07:26 09/20/24 07:26 09/20/24 08:00
Unchanged
Lab Results:
Laboratory Data
WBC 8.1 10^3/uL (4.8-10.8) 09/20/24 05:08
Hgb 10.4 g/dL (12.0-16.0) L 09/20/24 05:08
Plt Count 330 10^3/uL (130-400) 09/20/24 05:08
eGFR > 60.00 09/20/24 05:08
--- NOTE | 2024-09-20 10:12 | W.PN.GS2 ---
Today's Communication / Plan
-
`
Assessment / Plan
-
Assessment: 69 yo female with a history of stage IV rectal cancer admitted with probable acute exacerbation of chronic malignant bowel obstruction.
Initially diagnosed about 10 years ago and treated surgically with partial colectomy and loop ileostomy creation at [facility] which was subsequently reversed. Her reversal was complicated by an anastomotic leak with colostomy creation
in management which was also able to be reversed. She notes she has been on an off different chemotherapies for many years and recently started on Lonsurf on 09/11. On 09/14 she began developing abdominal pain and was unable to pass flatus or
stools. She presented through the ED on 09/16 for ongoing nausea, vomiting and abdominal distention. CT imaging with known peritoneal/hepatic metastatic disease present, Small bowel distention present consistent with SBO which is either malignant or
adhesive.
Difficult situation with limited role for surgical intervention. High risk for operative complications given multiple prior operations, malnutrition, and active chemotherapy. No plans for surgical intervention at this time. Surgical invention at
any point in time in the future would be palliative at best and would not significantly impact her QOL or underlying disease process and therefore likely best to be avoided.
AFVSS
Signs of clinical improvement with tolerance of liquid diet and returning GI function.
Plan: Suspect patient will generally have to subsist on protein supplements/full liquids with occasional soft food
Full liquid diet with Ensure twice daily -patient can try soft food later as desired and able (low residue diet)
Okay for discharge from surgical standpoint pending dietary tolerance
Subjective Data
-
Date of Service: September 20, 2024
Patient seen and examined.
She has been able to tolerate resumption of clear liquid intake and denies nausea or worsening abdominal pain.
Still feels a bit distended but again improved from presenting symptoms.
Continues to have bowel movements
Objective Data
-
Intake and Output
09/19/24 09/20/24 09/21/24
06:59 06:59 06:59
Intake Total 1800 / 1800 3170 / 3170
Balance 1800 / 1800 3170 / 3170
Intake:
Oral fluids 480 / 480 520 / 520
Amount of oral supplement(s) 120 / 120
consumed
IV fluids (Total) 1200 / 1200 2300 / 2300
IV piggybacks 350 / 350
Other:
Number of approximated SMALL 1
amounts of urine
Number of approximated MODERATE 1 2
amounts of urine
Vital Signs
Temp Pulse Resp BP Pulse Ox
98.1 F 93 20 159/80 95
09/20/24 07:26 09/20/24 07:26 09/20/24 07:26 09/20/24 07:26 09/20/24 08:00
Lab Results
09/20/24 05:08
09/20/24 05:08
Calcium 8.6 mg/dl (8.4-10.2) 09/20/24 05:08
Magnesium 1.8 mg/dl (1.6-2.3) 09/20/24 05:08
Total Bilirubin 1.2 mg/dl (0.2-1.3) 09/16/24 05:01
AST 39 U/L (14-36) H 09/16/24 05:01
ALT 19 U/L (0-35) 09/16/24 05:01
Alkaline Phosphatase 250 U/L (38-126) H 09/16/24 05:01
Total Protein 7.4 g/dl (6.3-8.2) 09/16/24 05:01
Albumin 3.9 g/dl (3.5-5.0) 09/16/24 05:01
Physical Exam
-
NAD AAOx3
ABD: Softly protuberant not overly distended. Tympany on percussion. Minimal tenderness without rebound rigidity or guarding
[2024-09-20 11:31] VITALS: BP 157/100
--- NOTE | 2024-09-20 14:00 | CM ---
Home with spouse no needs.
Plan; Home with spouse no needs.
[2024-09-20 15:25] VITALS: BP 150/95
[2024-09-20] MEDS: LOVENOX 40 MG SC (17:20)
[2024-09-20 23:32] VITALS: BP 145/97
[2024-09-21] MEDS: DILAUDID 0.5 MG IV ×3 (05:58→13:24)
[2024-09-21 06:00] LABS: Hemoglobin 10.3 g/dL (12.0-16.0); Mean Corp Hgb Conc. 31.2 g/dL (33.0-37.0); Mean Corpuscular Hgb 28.2 pg (27.0-31.0); Mean Corpuscular Volume 90.4 fL (81.0-99.0); Platelet Count 318 10^3/uL (130-400); Red Blood Cell Count 3.65 10^6/uL (4.20-5.40); Red Cell Dist. Width 17.2 % (11.5-14.5); White Blood Cell Count 7.8 10^3/uL (4.8-10.8)
[2024-09-21 06:24] LABS: Blood Urea Nitrogen 7 mg/dl (7-17); Calcium 8.6 mg/dl (8.4-10.2); Carbon Dioxide 26 mmol/L (22-30); Chloride 101 mmol/L (98-107); Estimated Creatinine Clearance 91 ml/min; Glucose 91 mg/dl (70-99); Potassium 3.6 mmol/L (3.5-5.1); Sodium 138 mmol/L (135-145); eGFR > 60.00
[2024-09-21 07:05] VITALS: BP 140/89
--- NOTE | 2024-09-21 07:16 | W.DCSUMMARY ---
Addendum entered and electronically signed by You Alexis MD 09/22/24 01:40:
Read, reviewed, and agree. See same day progress note for additional details. Patient without BM on day of DC. Advised nursing to give miralax based on stat x ray results. Advised to wait for BM prior to DC. Patient was dc'd prior to BM. Patient
called and updated at home.
Paul Alexis MD
Original Note:
Documented by User: Marty Dean MD, Resident 09/21/24 22:22
Discharge Summary
Discharge Data
Date of Admission: 09/16/24
Date of Discharge: 09/21/24
-
Pending Results: No
Hospital Course
Patient is a 69-year-old female, full code, PCP is Dr. Calvert, oncologist is Dr. Mckeon. Past medical history of metastatic rectal adenocarcinoma on chemotherapy Lonsurf, essential hypertension, history of pleural effusion was admitted to the ER
with new onset of nausea and vomiting plus inability to have a bowel movement for 72 hours. Diagnosed with ileus which was most likely malignancy related and CT abdomen of the pelvis showed no true sign of bowel obstruction, patient was maintained
on n.p.o. and IV fluids, as well as as needed antiemetics/pain medication. During the last 2 days of her hospital course she was able to pass flatus and eventually have up to 3 bowel movements. She transition from n.p.o. to clear liquids to low
residue diet Surgery states that she may need to subsist on protein supplements/full liquids with occasional soft food after she is able to tolerate a low residue diet. Stat x-ray on her last day of hospital course showed constipation which is
probably causing the upper abdominal discomfort that she has, so advised patient to take MiraLAX and avoid any stimulant medications like senna or docusate. The CT of the abdomen also did show worsening of the metastatic disease involving the
peritoneum. Oncology saw the patient and recommended supportive care for now and to continue the Lonsurf after patient has been discharged and follow-up outpatient. Patient denied hospice care. Patient also had increased blood pressure during
course of hospital stay and was given hydralazine drip and eventually controlled with amlodipine 5 mg p.o. twice daily, which she should continue after discharge.
Discharge Plan
-
Patient Disposition: Home (Routine Discharge)
Discharge Diagnosis/Procedures: small bowel obstruction, hypokalemia, hypomagnesemia, Stage IV rectal adenocarcinoma, Hypertension, Sinus tachycardia
Condition: Fair
Diet: Low Residue
Activity: As tolerated
Driving Restrictions: Not until seen by your Dr
Bathing Restrictions: None
Other Services: VN
Referrals:
Radha Mckeon MD [Active] - in two to three weeks
Arlyn Calvert NP [Family Provider] - in less than 1 week
Prescriptions:
Continued
amlodipine 5 MG tablet
5 mg PO BID Qty: 30 0RF
tramadol 50 mg Tablet
50 mg PO TID Qty: 30 0RF
Patient Comments:
08/04/2023: last filled 07/29/23, 90 tabs for 30 days from [facility][id number]
acetaminophen [Tylenol Extra Strength] 500 MG tablet
1,000 mg PO Q4HPRN PRN (Reason: mild pain) Qty: 30 0RF
oxycodone 5 mg Tablet
5 mg PO Q4H PRN (Reason: pain) Qty: 30 0RF
Rx Instructions:
pt states usually takes 1 a day
Refresh Classic (PF) 10 DROPS dropperette
1 drp BOTH EYES Q2HPRN PRN (Reason: dry eyes) Qty: 1 0RF
Systane (PF) 1 EACH dropperette
1 ea BOTH EYES DAILYPRN PRN (Reason: dryness) Qty: 1 0RF
Discharge Orders:
Discharge Patient (As Directed); Ordered 09/21/24
Ordered By: Marty Dean
Discharge Date and Time
Discharge Date/Time: 09/21/24 17:25
Print Language: GREENLANDIC

Documented by User: You Alexis MD 09/22/24 01:33
Discharge Summary
Discharge Data
Date of Admission: 09/16/24
Date of Discharge: 09/22/24
Discharge Plan
-
Patient Disposition: Home (Routine Discharge)
Discharge Diagnosis/Procedures: small bowel obstruction, hypokalemia, hypomagnesemia, Stage IV rectal adenocarcinoma, Hypertension, Sinus tachycardia
Condition: Fair
Diet: Low Residue
Activity: As tolerated
Driving Restrictions: Not until seen by your Dr
Bathing Restrictions: None
Other Services: VN
Referrals:
Radha Mckeon MD [Active] - in two to three weeks
Arlyn Calvert NP [Family Provider] - in less than 1 week
Prescriptions:
Continued
amlodipine 5 MG tablet
5 mg PO BID Qty: 30 0RF
tramadol 50 mg Tablet
50 mg PO TID Qty: 30 0RF
Patient Comments:
08/04/2023: last filled 07/29/23, 90 tabs for 30 days from [facility][id number]
acetaminophen [Tylenol Extra Strength] 500 MG tablet
1,000 mg PO Q4HPRN PRN (Reason: mild pain) Qty: 30 0RF
oxycodone 5 mg Tablet
5 mg PO Q4H PRN (Reason: pain) Qty: 30 0RF
Rx Instructions:
pt states usually takes 1 a day
Refresh Classic (PF) 10 DROPS dropperette
1 drp BOTH EYES Q2HPRN PRN (Reason: dry eyes) Qty: 1 0RF
Systane (PF) 1 EACH dropperette
1 ea BOTH EYES DAILYPRN PRN (Reason: dryness) Qty: 1 0RF
Discharge Orders:
Discharge Patient (As Directed); Ordered 09/21/24
Ordered By: Marty eDan
Discharge Date and Time
Discharge Date/Time: 09/21/24 17:25
Print Language: GREEN[place]
[2024-09-21] MEDS: MUCINEX 600 MG PO (08:52)
[2024-09-21] MEDS: NORVASC 5 MG PO (08:52)
--- NOTE | 2024-09-21 13:14 | W.PN.PAL2 ---
Today's Communication
-
Patient seen at bedside. Overall improving. Tolerated regular diet. still having episodes of abdominal pain, appears to be exacerbated by anxiety as well. patient anxious about how she will manage pain when home.
Recommend that we add oral pain medication - oxycodone 5mg q6hrs prn and utilize this for pain rather than IV medications.
Plan for outpatient palliative care follow up on discharge
Assessment / Plan
-
Assessment/Plan:
Goals are treatment oriented, and would continue treatment unlesss ability to perform personal care starts to change, then would transition to comfort care.
trial oral medications for pain
Agreeable to outpatient palliative care
Reason for Admission
Illness Course/HPI
60 mins total floor time
Ashley is a 69 y/o female with Stage IV rectal adenocarcinoma since 2012, currently recently started on lonsurf regimen, presented to hospital with n/v concerning for SBO.
Palliative care consult placed by general surgery to discuss goals of care.
Functional Status
Ashley lives in a 2 velvet home with her spouse in [facility]. She is at her baseline independent of her ADLs and does not use any assistive device. she still drives. she is able to go up the stairs once daily, but has mostly been staying on the main
floor.
She reports that her may have some early cognitive changes. she is considering having her stepdaughter be her medical poa jointy with her . she has other children are not involved regulary with her at this time
Goals of Care Discussion
-
Individuals Present for Discussion & Relationship to Patient:
Patient
Patient able to participate in discussion at time of visit: Yes
Patient Goals
Patients goals are treatment oriented, and is aware plan to start lonsurf once bowel issues have resolved.
If her ability to maintain her ADLs/personal care needs declines she would rather transition to comfort care.
She does not want CPR or intubtion when she has transitioned to hospice. but wants hospital code status to be changed back to full code.
We discussed home palliative care services, would be agreeable.
Pain & Symptom Assessment
-
comfortable initially, then complained of pain to abdomen
Objective Data
-
Objective Data:
Vital Signs
Temp Pulse Resp BP Pulse Ox
97.8 F 104 16 140/89 95
09/21/24 07:05 09/21/24 07:05 09/21/24 07:05 09/21/24 07:05 09/21/24 07:05
Laboratory Results
09/21/24 05:30
09/21/24 05:30
Total Protein 7.4 g/dl (6.3-8.2) 09/16/24 05:01
Albumin 3.9 g/dl (3.5-5.0) 09/16/24 05:01
Palliative Performance Scale
Palliative Performance Scale:
PPS Level Ambulation Activity & Evidence of Disease Self Care Intake Conscious Level
100% Full Normal Activity & Work; Full Intake Full
No Evidence of Disease
90% Full Normal Activity & Work; Full Normal Full
Some Evidence of Disease
80% Full Normal Activity with Effort Full Normal or Full
Some Evidence of Disease Reduced
70% Reduced Unable Normal Job/Work Full Normal or Full
Significant Disease Reduced
60% Reduced Unable Hobby/Housework Occasional Normal or Full or Confusion
Significant Disease Assistance Reduced
50% Mainly Sit/Lie Unable to do Any Work Considerable Normal or Full or Confusion
Extensive Disease Assistance Req'd Reduced
40% Mainly in Bed Unable to do Most Activity Mainly Assistance Normal or Full or Drowsy;
Extensive Disease Reduced +/- Confusion
30% Totally Bed Unable to do Any Activity Total Care Normal or Full or Drowsy;
Bound Extensive Disease Reduced +/- Confusion
20% Totally Bed Bound Unable to do Any Activity Total Care Minimal to Full or Drowsy;
Extensive Disease Sips +/- Confusion
10% Totally Bed Bound Unable to do Any Activity Total Care Mouth Care Drowsy or Coma;
Extensive Disease Only +/- Confusion
0%
PPS Score Level:
Palliative Performance Score Response
Palliative Performance Score Response: 60%
Physical Exam
-
General: Pain and Conversant
Neuro: Awake and Alert
Psych: Anxious
--- NOTE | 2024-09-21 13:15 | CM ---
manager of loss prevention operations spoke with patient this am and plan is to home today with spouse, patient has declined visiting nurses.
Plan; Home with spouse, no needs.
[2024-09-21 15:27] VITALS: BP 138/95
--- NOTE | 2024-09-21 15:33 | W.PN.ONC ---
Today's Communication / Plan
-
tolerating some liquid diet
cont supportive care
Impression
Impression
SBO/ileus
metastatic rectal cancer, diagnosed 2013 w/ liver mets; on and off treatment since diagnosis recently started Lonsurf (oral chemo)
Paranoia
Anemia
Plan
Plan
Continue conservative management of SBO
Etiology of SBO likely malignancy vs. adhesions from prior surgery
Lonsurf does not cause bowel obstruction
If symptoms improve w/ conservative measures, could resume Lonsurf
If symptoms persist, and she's not a surgical candidate, would have to consider comfort measures
Palliative care involved
Cont supportive care
Subjective/Objective
Subjective/Objective
feeling slightly better - tolerating liquid diet - denies pain
Vital Signs:
Vital Signs
Temp Pulse Resp BP Pulse Ox
99.3 F 102 19 138/95 97
09/21/24 15:27 09/21/24 15:27 09/21/24 15:27 09/21/24 15:27 09/21/24 15:27
Lab Results:
Laboratory Data
WBC 7.8 10^3/uL (4.8-10.8) 09/21/24 05:30
Hgb 10.3 g/dL (12.0-16.0) L 09/21/24 05:30
EPlt Count 318 10^3/uL (130-400) 09/21/24 05:30
eGFR > 60.00 09/21/24 05:30
Exam: unchanged
[2024-09-21] MEDS: FLUAD (65 yr+) 2024-2025 FORMULA 0.5 ML IM (16:33)
[2024-09-21] MEDS: LOVENOX 40 MG SC (16:34)
--- NOTE | 2024-09-21 17:27 | PTCARENOTE ---
Discharge instructions read and reviewed with patient. Patient verbalizing understanding of discharge plan. Per Lucia Ca MD instruction, patient will yake Miralax at home and monitor for continued constipation
--- NOTE | 2024-09-21 18:11 | W.PN.HOSP.TC ---
Addendum entered and electronically signed by You Alexis MD 09/22/24 01:38:
Attending Addendum-
I saw and evaluated the patient. I reviewed the resident�s note and agree with findings and plan as documented in the resident�s note. Sub: NO bm but + flatus. feels full. no N/V. abd pain improved. Full 12 point ROS reviewed and negative except as
documented Exam: Vitals reviewed in chart GEN-NAD heart RRR lungs clear abd NT mild distention no rebound /tenderness pos BS LE no edema
Plan:
#SBO
-likely malignancy related
-CT abdomen pelvis images reviewed and some dilated small bowel loop, no true signs of bowel obstruction
-If develop significant vomiting will require NG tube placement for decompression
-Continue on as needed antiemetics/pain medication
-appreciate surg input
- repeat abd x ray - 09/21 due to no BM and feeling full- reviewed- stool in the colon suggesting constipation. There are no dilated loops of small bowel.
- updated nurse to give miralax and hopeful to have BM prior to DC
- high likely car of recurrence
# Hypokalemia
- resolved
- replete aggressively
- repeat BMP in am
# Hypomagnesemia
- resolved
- repeat in am
# Stage IV rectal adenocarcinoma
- started on Lonsurf 09/11
- CT abdomen pelvis showing worsening metastatic disease involving peritoneum
- onc input appreciated
- may restart Lonsurf as OP
# HTN
- cont amlodipine
- prn hydralazine
# Leukocytosis
- reactive
- resolved
- cont to trend
# Sinus tachycardia
- resting tachy
- cont CCB
DVT PPX - lovenox
Code- Full
Dispo DC home after BM
Time spent coordinating care, DC planning, review of DC plan of care with resident, transition of care, review of records, med rec/scripts sent electronically, consults, notes, d/w consultants, nursing, family, and CM� 35 mins
Original Note:
Today's Communication/Plan
-
.
Assessment / Plan
Assessment / Plan
Adynamic ileus:
-X-ray abdomen stat ordered, constipation seen, patient recommended MiraLAX 09/21
-Patient is tolerating low residue diet 07/22
-Patient had a large bowel movement in the a.m., 09/19
-Continue IV fluids
-If any emesis use nasogastric tube
-Continue on antiemetics as needed and pain medication as needed
Postnasal drip:
- Ordered Mucinex, medication is working well
Small umbilical hernia:
-Continue to observe, not causing any symptoms 09/21
Hypokalemia:
- potassium is 3.6 09/20
-potassium repleted 09/19
Hypomagnesemia:
-Magnesium level 1.5, 09/19
-Magnesium repleted
Leukocytosis:
� Resolved
Metastatic rectal adenocarcinoma:
-Consulted oncology, Dr. Mckeon (09/18)- Lonsurf does not cause bowel obstructions, so would like us to resume once symptoms subside
-Consulted with palliative care (09/18)- patient agrees to be transitioned to comfort care if she cannot maintain her ADL's/personal care, patient is FULL CODE, explained what DNR/Full code is at 6:35 pm to patient and she states no DNR and that she
would like resuscitative measures at the moment. She said she only wants to be DNR if she loses most of her her ADL's.
- Consulted surgery (09/18)- want medical treatment for bowel obstruction
-She is a poor candidate for surgery as she is at high risk for morbidity
-General Surgery is following
Essential hypertension:
- Started patient on 5 mg bid, on 09/20
-Patient's blood pressure is 174/101 09/20
-Ordered hydralazine 10 mg IV drip x 2, 09/19
Elevated liver enzymes:
-Alkaline phosphatase is 250 and AST is 39
-Continue to monitor outpatient these as they are chronic
DVT prophylaxis:
-Continue Lovenox 40 mg subcutaneous
Anticipated Discharge: Today
Subjective/Interval History
-
Date of Service: September 21, 2024
No acute overnight events
Patient had a bowel movement 2 times yesterday none today
Tolerating low residue diet
Objective Data
-
Labs:
Laboratory Results
09/21/24
05:30
Sodium 138
Potassium 3.6
Chloride 101
Carbon Dioxide 26
BUN 7
Creatinine 0.5 L
Glucose 91
Calcium 8.6
Vital Signs:
Vital Signs
Temp Pulse Resp BP Pulse Ox
99.3 F 102 19 138/95 97
09/21/24 15:27 09/21/24 15:27 09/21/24 15:27 09/21/24 15:27 09/21/24 15:27
I&O
09/20/24 09/21/24 09/22/24
06:59 06:59 06:59
Intake Total 3170 / 3170 1060 / 1060
Balance 3170 / 3170 1060 / 1060
Review of Systems
-
History Source: Patient
Constitutional: Denies Fever, Fatigue or Night Sweats
Respiratory: Denies Cough or Trouble Breathing
Cardiac: Denies Chest Pain, Palpitations or Syncope
Abdomen/GI: Reports Abdominal Pain (Epigastric region) and Constipated; Denies Diarrhea or Bloody Stools
Physical Exam
-
General: Appears Chronically Ill
GI: Nondistended, Normal Bowel Sounds, Tender (Epigastric region) and Other (Small umbilical hernia)
Skin: Warm and Dry
Neuro: Awake, Alert, Oriented and AO x 3
--- NOTE | 2024-09-21 18:52 | W.PN.UPDATE ---
Update Note
Progress Note Update
Patient was discharged before she had a bowel movement. I reviewed with patient's nurse Keri that patient would need a medication regimen of MiraLAX-1 to 2 cups a day. Also advised the patient to avoid senna or docusate as stimulant laxatives can
exacerbate her abdominal pain. In case patient does not have return of her bowel movements after 48 hours, and she develops nausea and emesis she is advised to come back to the emergency room.
I spoke to the patient on phone and reviewed plan of discharge personally with her.
--- NOTE | 2024-09-27 17:08 | W.PN.UPDATE ---
Update Note
Progress Note Update
SBO:
-X-ray abdomen stat ordered, constipation seen, patient recommended MiraLAX 09/21
-Patient is tolerating low residue diet 07/22
-Patient had a large bowel movement in the a.m., 09/19
-Continue IV fluids
-If any emesis use nasogastric tube
-Continue on antiemetics as needed and pain medication as needed
Moderate calorie protein malnutrition secondary to an acute illness:
- Patient is currently on a low residue diet, and tolerating well.
- Currently needs to consume 2243 calories a day
- has poor intake <75% of estimated energy needs for >7 days
- has been NPO from 09/12 to 09/18
- Weight is 64.4 kgs which is down 4 kgs from admission
== END 2024-09-21 17:25 | disposition home or self-care (01) | DRG 389 ==
LOC: 4 WEST ACU 09:33
PROVIDERS: Student in an Organized Health Care Education/Training Program; ADMITTING PHYSICIAN Hospitalist; ATTENDING PHYSICIAN Family Medicine; CONSULT PHYSICIAN Internal Medicine Hematology & Oncology; CONSULT PHYSICIAN Internal Medicine Hospice and Palliative Medicine; EMERGENCY PHYSICIAN Emergency Medicine; FAMILY PHYSICIAN Internal Medicine; OTHER PHYSICIAN Surgery
DX: K56.50 Intestinal adhesions [bands], unspecified as to partial versus complete obstruction (principal); C20 Malignant neoplasm of rectum; C77.2 Secondary and unspecified malignant neoplasm of intra-abdominal lymph nodes; C77.9 Secondary and unspecified malignant neoplasm of lymph node, unspecified; C78.6 Secondary malignant neoplasm of retroperitoneum and peritoneum; C78.7 Secondary malignant neoplasm of liver and intrahepatic bile duct; E44.0 Moderate protein-calorie malnutrition; K56.0 Paralytic ileus; I10 Essential (primary) hypertension; E87.6 Hypokalemia; E83.42 Hypomagnesemia; Z51.5 Encounter for palliative care; Z68.21 Body mass index [BMI] 21.0-21.9, adult
CPT/HCPCS: 74018; 74176; 80048; 80053; 83605; 83690; 83735; 85025; 85027; 90662; 93005; 96361; 96374; 96375; 99285; G0008

== ENCOUNTER 2024-10-13 22:05 | Inpatient (IN) | payer OTHER, SELFPAY ==
[2024-10-13] VITALS (13 sets, daily range): BP systolic 126–144; BP diastolic 76–92; BMI 21.5; BMI 20.5
--- NOTE | 2024-10-13 17:28 | ED.GENMED ---
History of Present Illness
General
Chief Complaint: Breathing Problem
Source: patient, records and previous hospital records
Exam Limitations: clinical condition and altered mental status
Time Seen by Provider: 10/13/24 17:18
Nursing documentation reviewed up to this point in time: agreed with
History of Present Illness
History of Present Illness:
61-year-old female metastatic colorectal cancer presents with shortness of breath fatigue pain in her abdomen symptoms for a week or 2 if she had fever the past day or so, she feels short of breath, apparently had pneumonia, prior records
briefly reviewed she was not thought to be a surgical candidate on her prior visit with SBO, chemo agents were changed, was seen by palliative care, thought was that if she did not improve she might be a candidate for comfort measures per my review
of the oncology notes
Past History
Past History
ED Past Medical History: Cancer (Metastatic rectal carcinoma), Fibromyalgia, HTN, Psychiatric (Depression, paranoid delusions) and Other (ANCA vasculitis; lumbar DJD; chronic pain;)
ED Past Surgical History: Other (Port placement)
Social History
Tobacco: Non-smoker
Alcohol: None
Drug: None
Personal:
Living: with family
Employment: Retired
Family History
Family History: Other (Noncontributory)
Review of Systems
Review of Systems
All Other Systems: Not applicable
Constitutional: Reports fever and fatigue
Respiratory: Reports cough and trouble breathing
Cardiac: Reports chest pain
ABD/GI: Reports abdominal pain and nausea
: Reports no symptoms
Musculoskeletal: Reports muscle stiffness
Neurological: Reports weakness
Endocrine: Reports no symptoms
Phy Exam
Physical Exam
Physical Exam:
Physical Exam
General: Ill-appearing female dyspneic
Neck: Lips are slightly dry
Heart: Tachycardic
Lungs: Dyspneic diminished breath sounds on the right crackles
Abdomen tender in the right abdomen
Neuro: alert and oriented.
Skin: no rash
Psychiatric: Anxious but cooperative
Extremities: No cyanosis
Scores
Heart Failure Risk
Heart Failure Risk Score: Not Applicable
Course
Orders/Labs/Results
Orders:
Orders
10/13/24 17:23
Electrocardiogram (*1) Urgent
Reason for Study: Shortness of Breath
EKG- Treatment ONCE
HYDROmorphone [Dilaudid] 0.5 mg IV NOW STA
CR Obstruct Series W/pa Chest Urgent
Comment:
Reason For Exam: sob abd pain sbo cancer
O2 Therapy [RESP] Urgent
Titrate/Wean O2 to maintain O2 sat greater than (%): 98
10/13/24 17:24
Cardiac Monitoring- Treatment ONCE
10/13/24 17:53
Acetaminophen 1000MG/100Ml [Ofirmev] 1,000 mg in 100 ml IV ONCE
Acetaminophen IV Indication:: ED Narcotic Naive Pt-ONCE
10/13/24 18:35
COVID-19 Antigen Urgent
Source: Nasal Swab
Complete Blood Count/With Diff Urgent
Comprehensive Metabolic Panel Urgent
Magnesium Urgent
Influenza A+B Rapid Molecular Urgent
FERN Source: Nasal Swab
Specimen Description:
10/13/24 18:37
0.9% Sodium Chloride 1000 ml [Nss] 1,000 ml IV BOLUS
10/13/24 20:08
HYDROmorphone [Dilaudid] 0.5 mg IV NOW STA
Ipratropium/Albuterol Sulfate [Duoneb] 3 ml INH R NOW ONE
LevoFLOXacin 500 MG/100 ML [Levaquin] 500 mg in 100 ml IV NOW
10/13/24 20:10
Potassium Chloride [KCl] 40 meq PO NOW STA
10/13/24 20:28
Blood Culture Urgent
FERN Source: Blood/Venous
Specimen Description:
10/13/24 20:55
Admit/Transfer Patient As Directed
Co-Sign Provider:
Level of Care: Inpatient admission
Assign to:: Medical/Surgical
Physician / Group: ayan
Diagnosis: cough, fever
Reason for Hospitalization: cough, fever
Expected length of stay greater than two midnights?: Yes
ELOS- Estimated Length of Stay in days: 2
I certify the patient meets the requirements for IP care: Yes
PRN Pain Medication Management As Directed
May give lesser potent ordered pain med per pt: Yes
preference::
Protocol:: Medication orders for pain may be administered in a
manner that supports deferring to patient preference
when the pt is:
- Requesting an ordered lesser potent pain medication.
Least to most potent pain medications are defined
as: acetaminophen < NSAID < tramadol < opioids
(morphine, oxycodone, hydromorphone).
- Requesting a lesser dose of the same medication IF
ORDERED.
- Requesting a less intrusive route of administration
if both routes are prescribed by the provider (PO <
IV).
10/13/24 20:56
Code Status As Directed
Resuscitation Status: Full Code
10/13/24 22:40
Acetaminophen [Tylenol] 1,000 mg PO Q4HPRN PRN
Artificial Tears (Pf) [Refresh Eye Drops (Pf)] 1 drops BOTH EYES Q2HPRN PRN
CefTRIAXone [Rocephin] 1,000 mg IV Q24H
Doxycycline Hyclate [Vibramycin] 100 mg 0.9% Sodium Chloride 250 ml [Nss] 250 ml IV Q12H
HYDROmorphone [Dilaudid] 0.5 mg IV Q4HPRN PRN
Ondansetron Injectable [Zofran] 4 mg IV Q6HPRN PRN
Tramadol HCl [Ultram] 50 mg PO TID
10/13/24 22:40
Magnesium Routine
Activity As Directed
Activity Level: As Tolerated
Vital Signs As Directed
Frequency: Per unit guidelines
DX Deep Vein Thrombosis Video Routine
10/13/24 22:49
Artificial Tears (Pf) [Refresh Eye Drops (Pf)] 1 drops BOTH EYES DAILYPRN PRN
10/14/24 08:00
Heparin 5,000 units SC Q12
10/14/24 08:17
Complete Blood Count/With Diff IN AM
Comprehensive Metabolic Panel IN AM
Abnormal Lab Results
10/13/24
18:35
WBC 4.3 L 10^3/uL
(4.8-10.8)
RBC 3.38 L 10^6/uL
(4.20-5.40)
Hgb 9.5 L g/dL
(12.0-16.0)
Hct 30.2 L %
(37.0-47.0)
MCHC 31.5 L g/dL
(33.0-37.0)
RDW 18.6 H %
(11.5-14.5)
Absolute Lymphs (auto) 0.5 L 10^3/uL
(1.2-3.4)
Immature Gran % 0.7 H %
(0-0.5)
Neutrophils % 79.3 H %
(42.2-75.2)
Lymphocytes % 10.6 L %
(20.5-51.1)
Potassium 3.2 L mmol/L
(3.5-5.1)
Glucose 108 H mg/dl
(70-99)
AST 50 H U/L
(14-36)
Alkaline Phosphatase 290 H U/L
(38-126)
10/13/24 18:35
10/13/24 18:35
Vital Signs
Initial and Last Documented VS:
Initial Vital Signs
Temp Pulse Resp BP Pulse Ox
98.5 F 115 35 138/90 96
10/13/24 17:13 10/13/24 17:13 10/13/24 17:13 10/13/24 17:13 10/13/24 17:13
Last Documented Vital Signs
Temp Pulse Resp BP Pulse Ox
97.5 F 97 18 153/98 98
10/15/24 07:10 10/15/24 13:19 10/15/24 13:19 10/15/24 08:12 10/15/24 13:19
MDM/Problems Addressed
Differential Diagnosis Includes:
Pneumonia pleural effusion bowel obstruction sepsis viral syndrome disease progression PE
MDM/Problems Addressed:
Fatigue shortness of breath abdominal pain
Chronic conditions affecting care: Cancer
Acute Exacerbation and/or Progression of Chronic Illness: Cancer
*Radiology
Radiology exam reviewed: preliminary read by ED provider
*Pulse Oximetry
Patient hypoxic: yes
*EKG
Interpreted by ED Provider?: Yes
Interpretation: abnormal
Comparison EKG: no comparison EKG present
Heart Rate: 120
Rate: tachycardiac
Rhythm: sinus
Ischemia: non-specific ST changes
*Land Development Manager Interpretation
Rate: tachycardiac
Interpretation: abnormal
Heart Rate: 120
Rhythm: sinus
*Critical Care Note
Total Time (30-74mins, 75-104mins- exclusive of procedures): 30
Update Note
Update Note:
Update labs are noted x-ray noted, no signs of obstruction patient looks better after some fluids and Dilaudid she is on oxycodone at home does have a fever here, states she feels too weak and too much pain to go home which is not unreasonable we
will hold on any further imaging at this time as I do not think it would manager of change based upon my review of the prior records
ED Attending Note
-
Portions of this chart may have been created with voice recognition software.� Occasional wrong word or��sound alike� substitutions may have occurred due to the inherent limitations of voice recognition software.
Discharge Plan
Departure
Patient Disposition: Admit
Date of Disposition: 10/13/24
Time of Disposition: 20:14
Admit to: Telemetry
Presentation/result/management discussed w/ accepting MD/DO: Hospitalist
Patient with high blood pressure during this ER visit?: No
Condition: Fair
Covid-19: Negative COVID-19
Discharge Problem:
Fever, Metastatic cancer
Interventions
Interventions:
*Risk Screen - Suicide Last Done: 10/13/24 17:49
*General Assessment Last Done: 10/13/24 17:49
*Neglect/Abuse Screening Last Done: 10/13/24 17:49
*ED COVID-19 Vaccine History Last Done: 10/13/24 17:49
*Nursing Disposition Last Done: 10/13/24 22:38
ED- Cardiac Assessment Last Done: 10/13/24 17:50
ED- Pulmonary Assessment Last Done: 10/13/24 17:50
Discharge Date and Time
Discharge Date/Time: 10/13/24 22:39
[2024-10-13] MEDS: DILAUDID 0.5 MG IV ×2 (18:40→21:43)
[2024-10-13] MEDS: NSS 1000 IV (18:47)
[2024-10-13] MEDS: OFIRMEV 100 IV (18:51)
[2024-10-13 18:53] LABS: % Basophils 0.7 % (0-2); % Immature Granulocytes 0.7 % (0-0.5); % Lymphocytes 10.6 % (20.5-51.1); % Monocytes 8.7 % (1.7-9.3); % Neutrophils 79.3 % (42.2-75.2); Absolute Lymphocytes 0.5 10^3/uL (1.2-3.4); Absolute Monocytes 0.4 10^3/uL (0.1-0.6); Absolute Neutrophils 3.4 10^3/uL (1.4-6.5); Hematocrit 30.2 % (37.0-47.0); Hemoglobin 9.5 g/dL (12.0-16.0); Mean Corp Hgb Conc. 31.5 g/dL (33.0-37.0); Mean Corpuscular Hgb 28.1 pg (27.0-31.0); Mean Corpuscular Volume 89.3 fL (81.0-99.0); Mean Platelet Volume 9.1 fL (7.4-10.4); Nucleated Red Blood Cells % 0 %; Platelet Count 283 10^3/uL (130-400); Red Blood Cell Count 3.38 10^6/uL (4.20-5.40); Red Cell Dist. Width 18.6 % (11.5-14.5); White Blood Cell Count 4.3 10^3/uL (4.8-10.8)
[2024-10-13 19:11] LABS: ALT (SGPT) 18 U/L (0-35); AST (SGOT) 50 U/L (14-36); Albumin 3.5 g/dl (3.5-5.0); Alkaline Phosphatase 290 U/L (38-126); Blood Urea Nitrogen 14 mg/dl (7-17); Calcium 8.8 mg/dl (8.4-10.2); Carbon Dioxide 23 mmol/L (22-30); Chloride 102 mmol/L (98-107); Estimated Creatinine Clearance 91 ml/min; Glucose 108 mg/dl (70-99); Magnesium 1.7 mg/dl (1.6-2.3); Potassium 3.2 mmol/L (3.5-5.1); Sodium 135 mmol/L (135-145); Total Bilirubin 0.8 mg/dl (0.2-1.3); eGFR > 60.00
[2024-10-13 19:25] LABS: COVID-19 Antigen Negative (Negative)
--- NOTE | 2024-10-13 20:59 | HPS.HSE ---
Family Physician
-
Family Physician: NOT KNOW UNKNOWN - PT DOES
Chief Complaint
-
cough, fever, shortness of breath
History of Present Illness
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
lumbar degenerative disease, presenting with cough sometimes productive with shortness of breath, fevers and chills over the past week. Her had walking pneumonia a week ago which she felt like she got from him. She denies any sore throat.
Patient also has been complaining of abdominal pain radiating into her chest. She has been having loose stools. She has been eating very little. Has had nausea without vomiting.
Patient was recently hospitalized from 09/16 to 09/21 for small bowel obstruction thought to be secondary to malignancy. She was treated with IV fluids antiemetics/pain medication. CT scan at the time showed worsening of metastatic disease
involving the peritoneum. Patient denied hospice at that time.
Medical History
Past Medical History
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
degenerative disease)
Past Surgical History: Reports Other (Proctectomy / Colonanal Anastomosis / Loop Ileostomy Ostomy Reversal Left Hepatic Lobectomy / Cholecystectomy D&C Chest Wall Port Placement (x 2) Left Bunionectomy T&A)
Social History
Tobacco: Non-smoker
Alcohol: None
Drug: None
Family History
Family History: Not pertinent
Allergies / Home Medications
Allergies reflects when Allergies were last updated in [employer]
Home Medications with original date entered in [employer]
Allergy/Medication List:
Allergies
Allergy/AdvReac Type Severity Reaction Status Date / Time
clarithromycin [From Biaxin] Allergy Tongue Verified 10/13/24 17:44
Swelling
Iodinated Contrast Media Allergy Itching Verified 10/13/24 17:44
penicillin V [Penicillin V] Allergy Hives Verified 10/13/24 17:44
ragweed pollen Allergy Shortness Verified 10/13/24 17:44
of Breath
silver Allergy per pt Verified 10/13/24 17:44
[From Tegaderm AG Mesh] placed
over port
per pt and
she had
rash
sulfamethoxazole Allergy Tongue Verified 10/13/24 17:44
[From Bactrim] Swelling
trimethoprim [From Bactrim] Allergy Tongue Verified 10/13/24 17:44
Swelling
Home Medications
acetaminophen 500 mg tablet (Tylenol Extra Strength) 1,000 mg (2 x 500 mg) PO Q4HPRN PRN mild pain #30 tabs 09/21/24
amlodipine 5 mg tablet 5 mg PO BID Blood pressure #30 tabs 09/21/24
oxycodone 5 mg tablet 5 mg PO Q4H PRN pain #30 tabs 09/21/24
peg 400-propylene glycol (PF) 0.4 %-0.3 % eye drops in a dropperette (Systane (PF)) 1 ea BOTH EYES DAILYPRN PRN dryness #1 ea 09/21/24
polyvinyl alcohol-povidone (PF) 1.4 %-0.6 % eye drops in a dropperette (Refresh Classic (PF)) 1 drp BOTH EYES Q2HPRN PRN dry eyes #1 ea 09/21/24
tramadol 50 mg tablet 50 mg PO TID Pain #30 tabs 09/21/24
Review of Systems
-
History Source: Patient
A 12 point ROS was completed and negative except as noted: Yes
Constitutional: Reports No Symptoms
EENT: Reports No Symptoms
Respiratory: Reports See HPI
Cardiac: Reports No Symptoms
Abdomen/GI: Reports See HPI
: Reports No Symptoms
Musculoskeletal: Reports No Symptoms
Skin: Reports No Symptoms
Neurological: Reports No Symptoms
Endocrine: Reports No Symptoms
Hematologic/Lymphatic: Reports No Symptoms
Psych: Reports No Symptoms
Physical Exam
Vital Signs
Vital Signs
Temp Pulse Resp BP Pulse Ox
98.8 F 105 16 137/86 93
10/13/24 20:00 10/13/24 20:30 10/13/24 20:30 10/13/24 20:30 10/13/24 20:30
Physical Exam
General: Well Developed, Well Nourished and No Apparent Distress
HEENT: NormoCephalic, Moist mucous membranes and Atraumatic
Respiratory: Clear
Cardiac: S1/S2 and Regular Rhythm; No Murmur or Rub
GI: Soft, Non Distended, Normal Bowel Sounds and Tender (diffusely ); No Organomegaly
Rectal: Deferred by Provider
Musculoskeletal: No Clubbing, No Cyanosis and No Edema
Skin: No Rash
Neuro: Nonfocal/grossly intact
Laboratory Results
-
10/13/24 18:35
10/13/24 18:35
Laboratory Results
Total Bilirubin 0.8 mg/dl (0.2-1.3) 10/13/24 18:35
AST 50 U/L (14-36) H 10/13/24 18:35
ALT 18 U/L (0-35) 10/13/24 18:35
Alkaline Phosphatase 290 U/L (38-126) H 10/13/24 18:35
Data Reviewed
-
Lab Data: Labs Reviewed by me
Old Records: Reviewed
Impression/Plan
-
IMPRESSION:
PLAN:
# Acute viral bronchitis/pneumonia
-No obvious infiltrates on chest x-ray, report pending
-Influenza and COVID-negative
-Blood cultures pending
-Levaquin given in ER, ceftriaxone/doxycycline
# Ongoing abdominal pain rule out recurrence of small bowel obstruction
# Recent small bowel obstruction secondary to adhesions from prior surgery/malignancy related
-Abdominal x-ray pending
-N.p.o. for now
# Hypokalemia secondary to loose stools/decreased p.o. intake
-Replete potassium
-Check magnesium
# Stage IV metastatic rectal carcinoma with metastases to liver, spine
# Rectal cancer status post proctectomy, coloanal anastomosis, loop ileostomy with reversal, liver metastases status post left hepatic lobectomy
# Chronic pain secondary to malignancy
-Continue tramadol standing, as needed IV Dilaudid in place of usual p.o. oxycodone
-Patient follows with
Essential hypertension
-Continue amlodipine
Fibromyalgia
Depression
History of paranoia
Lumbar degenerative disc disease
Chronic anemia
-Hemoglobin stable
Full code
DVT prophylaxis�heparin
N.p.o.
[2024-10-13] MEDS: KCL PO (21:35)
[2024-10-13] MEDS: LEVAQUIN 100 IV (21:41)
[2024-10-13] MEDS: KCL 20 MEQ PO (21:45)
[2024-10-13] MEDS: DUONEB 3 ML INH (21:48)
--- NOTE | 2024-10-13 21:55 | EDRN ---
the pt attempted to swallow ordered Potassium Chloride 40mEq PO pills. However the pt states she is having trouble swallowing such large pills. this PEDIATRIC DENTAL ASSISTANT cut the potassium pills in half and the pt tried to swallow the cut up pills. But the pt still
c/o having difficulty swallowing the pills and began coughing when she attempted it. this PEDIATRIC DENTAL ASSISTANT then dissolved remaining cut up Potassium Chloride Pills and dissolved them in approx 30ml of water for the pt to drink. the pt tried to take a sip of
the dissolved Potassium Chloride pills in water but stated 'I just can't do it any more.' the pt only swallowed a total of 20mEq of Potassium Chloride PO.
ER Dr Howard was notified of above
[2024-10-13] MEDS: ULTRAM 50 MG PO (23:39)
[2024-10-13] MEDS: STERILE WATER FOR INJECTION 10 ML IV (23:39)
[2024-10-13] MEDS: ROCEPHIN 1000 MG IV (23:40)
[2024-10-13] MEDS: VIBRAMYCIN 260 MG IV (23:40)
[2024-10-14 01:11] LABS: Magnesium 1.7 mg/dl (1.6-2.3)
--- NOTE | 2024-10-14 06:35 | PTCARENOTE ---
Patient arrived on unit via stretcher from ED @2240 via stretcher, pulled over to bed with assist x3. Patient SANCHEZ, 1 episode of small emesis after transferring to bed. Patient AAOx3, pain level 1/10, skin assessment completed, med rec completed,
oriented to unit with call brooks within reach.
[2024-10-14 07:00] VITALS: BP 156/104
[2024-10-14] MEDS: ULTRAM PO ×4 (07:55→21:08)
[2024-10-14] MEDS: HEPARIN SC ×2 (07:57→15:09)
[2024-10-14] MEDS: DILAUDID 0.5 MG IV (07:58)
[2024-10-14 08:26] LABS: Hematocrit 30.4 % (37.0-47.0); Hemoglobin 9.6 g/dL (12.0-16.0); Mean Corp Hgb Conc. 31.6 g/dL (33.0-37.0); Mean Corpuscular Hgb 27.9 pg (27.0-31.0); Mean Corpuscular Volume 88.4 fL (81.0-99.0); Mean Platelet Volume 8.7 fL (7.4-10.4); Platelet Count 271 10^3/uL (130-400); Red Blood Cell Count 3.44 10^6/uL (4.20-5.40); Red Cell Dist. Width 18.9 % (11.5-14.5); White Blood Cell Count 4.2 10^3/uL (4.8-10.8)
--- NOTE | 2024-10-14 08:38 | W.PN.UPDATE ---
Update Note
Progress Note Update
I saw and evaluated the patient. I reviewed the resident�s note and agree with findings and plan as documented in the resident�s note.
Complains of cough productive of green sputum. She states that when she tries to swallow pill she vomits it up
Gen: NAD, awake and alert, appears chronically ill malnourished
Eyes: EOMI, PERRLA, no scleral icterus.
Neck: supple.
CV: tachy, reg rhythm, +S1/S2, no m/r/g.
Resp: CTAB, no rales, wheezes, or rhonchi.
Abd: +BS, soft, NT, ND
Skin: No rashes.
Neuro: CN 2-12 intact, non-focal.
Psych: anxious
OBST series: Elevation right hemidiaphragm. Small right pleural effusion. Nodular densities projecting over both lungs, suspicious for metastatic pulmonary nodules. No radiographic evidence for bowel obstruction or free intraperitoneal air.
Acute bronchitis/pneumonia:
-CXR without PNA, small pleural effusion noted
-Flu/COVID NEG
-Levaquin given in ER, currently on ceftriaxone/doxycycline. More than likely this is viral.
-in theory small R pleural effusion could obscure a small infiltrate. Check procalcitonin (might be falsely elevated in malignancy but a NEG Procal would be helpful).
Ongoing abdominal pain:
-no SBO on imaging
-h/o recent SBO due to adhesions from prior surgery/malignancy related
-BM this AM as per pt
-advance diet as tolerated
-pt c/o 'spasms' in her neck when she tries to swallow a pill causing her to vomit up pills. c/s speech.
Hypokalemia:
-due to loose stools/decreased PO intake
-80meq K total today
-Mg 1.7, give 1g IV Mg
Stage IV metastatic rectal carcinoma with metastases to liver, spine
Rectal cancer status post proctectomy, coloanal anastomosis, loop ileostomy with reversal, liver metastases status post left hepatic lobectomy
Chronic pain secondary to malignancy
-Continue tramadol standing, as needed IV Dilaudid in place of usual p.o. oxycodone
-c/s ONC and palliative care
Depression, h/o paranoia, severe anxiety:
-suspect that these things are severely exacerbating her symptoms
-0.5mg IV ativan now
-psych c/s if symptoms persist
Other problems:
Essential hypertension: Continue amlodipine
Severe protein calorie malnutrition
Lumbar degenerative disc disease
Anemia of chronic disease: Hb stable
FULL/heparin
Total time spent on today's encounter was 50 minutes which included time spent in counseling the patient/family regarding diagnosis and treatment plan as listed above, goals of care, and symptom management. Case was discussed with nursing staff,
specialists, and care coordinators/case management. All labs and imaging personally reviewed by me. Remainder the time spent in detailed review of previous records, lab data, imaging, and other medical provider documentation.
[2024-10-14 08:59] LABS: ALT (SGPT) 18 U/L (0-35); AST (SGOT) 49 U/L (14-36); Albumin 3.4 g/dl (3.5-5.0); Alkaline Phosphatase 278 U/L (38-126); Blood Urea Nitrogen 12 mg/dl (7-17); Calcium 8.6 mg/dl (8.4-10.2); Carbon Dioxide 21 mmol/L (22-30); Chloride 106 mmol/L (98-107); Estimated Creatinine Clearance 87 ml/min; Glucose 104 mg/dl (70-99); Potassium 3.1 mmol/L (3.5-5.1); Sodium 138 mmol/L (135-145); Total Bilirubin 0.8 mg/dl (0.2-1.3); Total Protein 6.7 g/dl (6.3-8.2); eGFR > 60.00
[2024-10-14 09:19] LABS: % Basophils 0.5 % (0-2); % Eosinophils 0.2 % (0-6); % Immature Granulocytes 0.2 % (0-0.5); % Lymphocytes 13.2 % (20.5-51.1); % Monocytes 13.2 % (1.7-9.3); % Neutrophils 72.7 % (42.2-75.2); Absolute Lymphocytes 0.6 10^3/uL (1.2-3.4); Absolute Monocytes 0.6 10^3/uL (0.1-0.6); Nucleated Red Blood Cells % 0 %
[2024-10-14 09:34] LABS: Procalcitonin 0.28 ng/ml (0.0-0.25)
--- NOTE | 2024-10-14 09:59 | W.PN.HOSP.TC ---
Today's Communication/Plan
-
.
Assessment / Plan
Assessment / Plan
Acute bronchitis/pneumonia:
- No elevated wbc, fever, etc
-CXR shows Elevation right hemidiaphragm. Small right pleural effusion. Nodular densities projecting over both lungs, suspicious for metastatic pulmonary nodules.No radiographic evidence for bowel obstruction or free. intraperitoneal air.
-Flu/Covid negative
-Continue on empiric antibiotics
-Procalcitonin slightly elevated
-Speech evaluation
- duonebs ordered as needed
Abdominal pain d/t possible small bowel obstruction
Recently admitted for small bowel obstruction due to adhesions from malignancy:
-Chest xray negative
-Patient did pass flatulence today and had a bowel movement, bowel sounds regular
-patients diet is advanced to regular today
Swallow dysfunction associated with nausea:
- speech evaluation
Hypokalemia:
- Potassium level is 3.1
- Ordered IV potassium 40 now and then again in 4 hours
Stage IV metastatic rectal carcinoma with metastases:
-Continue current pain meds with as needed Dilaudid
- consult oncology
- consult palliative care
Anxiety/depression:
-0.5mg IV ativan now
- possible pysch consult
Essential hypertension:
- today bp is 156/104
- Continue amlodipine
Severe protein calorie malnutrition
- Dietary consulted was placed
DVT ppx: heparin
Anticipated Discharge: 24 - 48 hours
Subjective/Interval History
-
Date of Service: October 14, 2024
Patient has difficulty swallowing. She states that anytime she swallows a sip of water or a pill, that she feels nauseous and wants to vomit.
Objective Data
-
Labs:
Laboratory Results
10/14/24
08:17
WBC 4.2 L
Hgb 9.6 L
Hct 30.4 L
Plt Count 271
Sodium 138
Potassium 3.1 L
Chloride 106
Carbon Dioxide 21 L
BUN 12
Creatinine 0.6
Glucose 104 H
Calcium 8.6
Total Bilirubin 0.8
AST 49 H
ALT 18
Alkaline Phosphatase 278 H
Vital Signs:
Vital Signs
Temp Pulse Resp BP Pulse Ox
98.8 F 108 20 156/104 94
10/14/24 07:00 10/14/24 07:00 10/14/24 07:00 10/14/24 07:00 10/14/24 07:00
Physical Exam
-
General: Appears Chronically Ill
Respiratory: Clear to Auscultation
Cardiac: Regular Rhythm and S1/S2
GI: Soft, Nontender, Nondistended, Normal Bowel Sounds and Tender (Epigastric region)
Skin: Warm and Dry
Neuro: Awake, Alert, Oriented and AO x 3
Data Reviewed
-
Medical Tests (Nuc Med, Echo etc): Image personally visualized and interpreted and Discussed with Physician
Labs: Labs Reviewed by me and Discussed with Physician
[2024-10-14] MEDS: ATIVAN 0.5 MG IV (10:29)
[2024-10-14] MEDS: NSS (PRESERVATIVE FREE) 0.25 ML IV (10:30)
[2024-10-14] MEDS: MAGNESIUM SULFATE 102 GRAMS IV (10:31)
[2024-10-14] MEDS: KCL 270 MEQ IV ×2 (10:31→15:09)
[2024-10-14] MEDS: NORVASC 5 MG PO ×2 (10:31→20:58)
[2024-10-14] MEDS: VIBRAMYCIN 260 MG IV ×2 (12:28→22:38)
[2024-10-14 12:43] VITALS: BMI 20.5
--- NOTE | 2024-10-14 12:53 | PTOTSP ---
SPEECH THERAPY SWALLOW EVALUATION:
Patient exhibits clinical signs of pharyngeal dysphagia characterized by reported globus sensation with solids and liquids, and regurgitation/coughing after the swallow across textures. Patient with predisposing dysphagia risk factors including
stage IV rectal cancer with possible pulmonary involvement. Currently with pneumonia. Recommend Videofluoroscopic Swallowing Study to further assess swallow function. Recommend patient for IDDSI Level 4 Puree diet, thin liquids until VSE.
Medications crushed in puree. General aspiration and Reflux precautions. ST to follow with additional recommendations following VSE. Pt in agreement.
RECOMMEND:
1) Videofluoroscopic Swallowing Study
2) IDDSI Level 4 Puree diet, thin liquids
3) Medications crushed in puree
4) General aspiration and Reflux precautions
5) ST to follow
--- NOTE | 2024-10-14 14:01 | CM ---
Addendum entered by Connie Zuniga 10/14/24 14:06:
IMM signed on 10/13 per documentation.
Original Note:
CM reviewed chart. Pt being treated for PNA with IVabx. Pt resides in 2story home w/1st fl set up w/. IAMB/ADLS and driving [employer]. No active home care after recent admit/dc in Aug 2024 @ . Pt being followed by [facility]- rec's VBS,
pureed diet for now. Pt declined hospice at time of admit.
CM would encourage that pt be OOB to chair for all meals and to restroom whenever possible/appropriate in an effort to ensure a safe and timely dc to home. Pt has no skilled needs noted at this time. Please consult CM/SW within 24hrs of dc should
needs change.
CM/SW will continue to follow to ensure a safe and timely dc.
--- NOTE | 2024-10-14 14:30 | W.PN.UPDATE ---
Update Note
Progress Note Update
Oncology was consulted due to bilateral nodules seen on x-ray of the lung, most likely metastatic from stage IV rectal carcinoma,
[2024-10-14 15:00] VITALS: BP 155/94
--- NOTE | 2024-10-14 16:35 | PTCARENOTE ---
IV KCl ordered for potassium 3.1. Telemetry monitoring applied per protocol. @1440, pt had 13 beat run of Vtach. Pt states she is was trying to urinate on commode. denies chest pain, dizziness, SOB or palpitations. MD and resident notified
immediately. Cardiology consulted. instructed by MD to continue KCl infusion. order for repeat Mg and K @2000. will continue to monitor pt
[2024-10-14 19:00] VITALS: BP 164/102
[2024-10-14] MEDS: HEPARIN 5000 UNITS SC (20:58)
[2024-10-14 21:18] LABS: Magnesium 1.9 mg/dl (1.6-2.3); Potassium 4.1 mmol/L (3.5-5.1)
--- NOTE | 2024-10-14 21:49 | PTCARENOTE ---
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 Pt. visibly upset and tearful, refusing to put tele monitor back on. Purpose and risks explained. This RN informed PSYCHOLOGY FELLOW about
pt's refusal. Pt. not ordered telemetry, but armored car guard and driver had been on patient for day shift. PSYCHOLOGY FELLOW saw pt at bedside and explained risks again and discussed pts episode of SVT during day shift, pt continued to refuse. Tele monitor no longer on
pt.
[2024-10-14] MEDS: STERILE WATER FOR INJECTION 10 ML IV (22:38)
[2024-10-14] MEDS: ROCEPHIN 1000 MG IV (22:38)
[2024-10-14 23:00] VITALS: BP 135/87
[2024-10-15] MEDS: TYLENOL 1000 MG PO (00:17)
[2024-10-15 03:00] VITALS: BP 144/90
[2024-10-15] MEDS: DILAUDID 0.5 MG IV ×3 (03:22→21:36)
[2024-10-15 05:29] LABS: Hematocrit 30.9 % (37.0-47.0); Hemoglobin 9.5 g/dL (12.0-16.0); Mean Corp Hgb Conc. 30.7 g/dL (33.0-37.0); Mean Corpuscular Volume 91.2 fL (81.0-99.0); Mean Platelet Volume 9.2 fL (7.4-10.4); Platelet Count 317 10^3/uL (130-400); Red Blood Cell Count 3.39 10^6/uL (4.20-5.40); Red Cell Dist. Width 19.5 % (11.5-14.5); White Blood Cell Count 4.3 10^3/uL (4.8-10.8)
[2024-10-15 05:57] LABS: ALT (SGPT) 17 U/L (0-35); AST (SGOT) 46 U/L (14-36); Albumin 3.4 g/dl (3.5-5.0); Alkaline Phosphatase 285 U/L (38-126); Blood Urea Nitrogen 10 mg/dl (7-17); Calcium 8.6 mg/dl (8.4-10.2); Carbon Dioxide 21 mmol/L (22-30); Chloride 108 mmol/L (98-107); Estimated Creatinine Clearance 87 ml/min; Glucose 107 mg/dl (70-99); Potassium 3.7 mmol/L (3.5-5.1); Sodium 139 mmol/L (135-145); Total Bilirubin 0.8 mg/dl (0.2-1.3); Total Protein 6.9 g/dl (6.3-8.2); eGFR > 60.00
--- NOTE | 2024-10-15 07:06 | W.PN.HOSP.TC ---
Addendum entered and electronically signed by You Alexis MD 10/16/24 00:12:
Attending Addendum-
I saw and evaluated the patient. I reviewed the resident�s note and agree with findings and plan as documented in the resident�s note. Sub: Feels greatly improved. Passing flatus and having BM. Denies pain. Seen with present. 'I just want
to see the heme/onc doctor the ill go. I cant follow up as an OP. its unreasonable to wait for an appointment' Full 12 point ROS reviewed and negative except as documented Exam: Vitals reviewed in chart GEN-NAD anxious appearing, heart RRR lungs
clear abd soft LE no edema
# Acute viral bronchitis/pneumonia
-chest g-opv-Wrqkuhk densities projecting over both lungs, suspicious for metastatic pulmonary nodules.
-Influenza and COVID-negative
-Blood cultures NGTD
-Levaquin given in ER, cont ceftriaxone/doxycycline
-DC abx in am
# Pulm Nodules
- unclear if infectious vs metastatic
- c/s heme onc for eval
- f/u as OP
# Ongoing abdominal pain rule out recurrence of small bowel obstruction
-resolved
# Recent small bowel obstruction secondary to adhesions from prior surgery/malignancy related
-Abdominal x-ray- no obs
-advanced diet daksha well
- VFSS - wnl
# Hypokalemia secondary to loose stools/decreased p.o. intake
-Replete potassium
-resolved
# Stage IV metastatic rectal carcinoma with metastases to liver, spine
# Rectal cancer status post proctectomy, coloanal anastomosis, loop ileostomy with reversal, liver metastases status post left hepatic lobectomy
# Chronic pain secondary to malignancy
-Continue tramadol standing, as needed IV Dilaudid in place of usual p.o. oxycodone
-Patient follows with
Essential hypertension
-Continue amlodipine
Fibromyalgia
Depression
History of paranoia/anxiety
Lumbar degenerative disc disease
Chronic anemia
-Hemoglobin stable
Full code
DVT prophylaxis�heparin
Dispo DC in am to home
Time spent coordinating care, review of plan of care with resident, personally reviewed records in EMR, med rec, consults, notes, labs, radiology, d/w nursing � 55 mins
Original Note:
Today's Communication/Plan
-
- medications crushed in puree
Assessment / Plan
Assessment / Plan
Ms. Ashley Rutledge is a 69yoF pmh stage IV rectal carcinoma w current active mets to liver, bowel, and spine, anxiety, and lumbar DDD in the hospital for bronchitis.
Acute bronchitis/pneumonia:
- No elevated wbc, fever, etc
- CXR: Elevated right hemidiaphragm. Small right pleural effusion. Nodular densities projecting over both lungs, suspicious for metastatic pulmonary nodules
- Flu/Covid negative
- Ceftriaxone & doxycycline - day 3
- Speech eval - recommends videofluoroscopic swallowing study, IDDSI level 4 puree diet, thin liquids. Medications crushed in puree
- PT/OT consulted
- duonebs prn
Abdominal pain
Recently admitted for small bowel obstruction due to adhesions from malignancy:
- SBO ruled out - CXR neg for bowel obstruction and free air
- IDDSI level 4 puree diet
Swallow dysfunction associated with nausea:
- speech evaluation - recommends videofluoroscopic swallowing study
Hypokalemia:
Hypomagnesemia:
- resolved with IV potassium and IV mag sulfate
Stage IV metastatic rectal carcinoma with metastases:
- Continue home tramadol, acetaminophen
- prn Dilaudid
- concern for lung mets based on nodular densitie in CXR
- consult oncology
- consult palliative care
Anxiety/depression:
- 0.5mg IV ativan given yesterday
Essential hypertension:
- Continue amlodipine
Severe protein calorie malnutrition
- Dietary consulted
Transaminitis
- elevated alk phos likely secondary to bone metastases
Diet: IDDSI Level 4 Puree diet, thin liquids
DVT ppx: subq heparin
Code status: FULL CODE
Anticipated Discharge: 24 - 48 hours
Subjective/Interval History
-
Date of Service: October 15, 2024
Ms. Ramirez Hopejuan c is a 69yoF pmh stage IV rectal carcinoma w current active mets to liver, bowel, and spine, anxiety, and lumbar DDD in the hospital for bronchitis. Her cough and congestion are improving. She is able to swallow now, believes her
previous difficulty was secondary to heartburn. She reports an SBO last week. Her appetite is slowly returning.
Objective Data
-
Labs:
Laboratory Results
10/14/24 10/15/24
20:53 05:19
WBC 4.3 L
Hgb 9.5 L
Hct 30.9 L
Plt Count 317
Sodium 139
Potassium 4.1 D 3.7
Chloride 108 H
Carbon Dioxide 21 L
BUN 10
Creatinine 0.6
Glucose 107 H
Calcium 8.6
Total Bilirubin 0.8
AST 46 H
ALT 17
Alkaline Phosphatase 285 H
Vital Signs:
Vital Signs
Temp Pulse Resp BP Pulse Ox
97.9 F 98 12 144/90 93
10/15/24 03:00 10/15/24 03:00 10/15/24 03:00 10/15/24 03:00 10/15/24 03:00
I&O
10/14/24 10/15/24 10/16/24
06:59 06:59 06:59
Intake Total 1320 / 1320
Balance 1320 / 1320
Review of Systems
-
History Source: Patient
All other systems: Reviewed and negative
Constitutional: Denies Fever or Chills
Respiratory: Reports Cough; Denies Wheezing
Cardiac: Reports No Symptoms
Abdomen/GI: Reports Abdominal Pain (lower) and GERD; Denies Nausea, Vomiting, Diarrhea or Constipated
Physical Exam
-
General: Cachectic
HEENT: Normocephalic, Atraumatic, Moist Mucous Membranes and Anicteric
Respiratory: Wheezes (expiratory)
Cardiac: Regular Rhythm and S1/S2
GI: Soft, Nontender, Nondistended and Normal Bowel Sounds
Musculoskeletal: No Edema
Skin: Warm and Dry
Neuro: AO x 3
Psych: Calm
[2024-10-15 07:10] VITALS: BP 153/98
[2024-10-15] MEDS: HEPARIN 5000 UNITS SC ×2 (08:10→20:43)
[2024-10-15] MEDS: NORVASC 5 MG PO ×2 (08:12→20:43)
[2024-10-15] MEDS: ULTRAM 50 MG PO (08:19)
--- NOTE | 2024-10-15 10:33 | CON.ONC ---
Documented by User: Adriane Villegas MD, Resident 10/15/24 12:01
Impression
Impression
metastatic rectal cancer, diagnosed 2012 w/ liver mets; on and off treatment since diagnosis
On Lonsurf
Acute Bronchitis
Plan
Plan
Continue Management of Acute bronchitis per primary.
bilateral nodules seen on x-ray of the lung has been identified on Previous PET/CT scan.
Will continue on lonsurf
Palliative care involved
Patient History
History of Present Illness
This is a 69-year-old female with history of stage IV rectal cancer, diagnosed in Sep 2013 with liver metastasis at diagnosis. She underwent chemo/RT and surgical resection of the primary tumor and hepatic metastasectomy. She was recently started
on Lonsurf (oral chemo). She presented to ER 10/13/2024 with symptoms of productive cough, shortness of breath, fever and chills. In addition, patient admits loss of appetite and multiple episodes of loose stools. At bedside today, patient
reports overall improvement of symptoms. Reports persistent productive cough. States cough syrup has helped symptoms in the past.
Past-Medical/Surgical History
Stage IV rectal cancer
Liver metastasis
Essential hypertension
History of SBO
Patient Medication
�Medication �Instructions �Recorded �Confirmed �Last Taken �Type
acetaminophen 500 mg tablet 1,000 mg (2 x 500 mg) PO Q4HPRN 09/21/24 10/13/24 10/13/24 Rx
(Tylenol Extra Strength) PRN mild pain #30 tabs
amlodipine 5 mg tablet 5 mg PO BID Blood pressure #30 tabs 09/21/24 10/13/24 10/13/24 Rx
oxycodone 5 mg tablet 5 mg PO Q4H PRN pain #30 tabs 09/21/24 10/13/24 10/12/24 Rx
peg 400-propylene glycol (PF) 0.4 1 ea BOTH EYES DAILYPRN PRN 1110/13/24 10/13/24 Rx
%-0.3 % eye drops in a dropperette dryness #1 ea
(Systane (PF))
polyvinyl alcohol-povidone (PF) 1 drp BOTH EYES Q2HPRN PRN dry 09/21/24 10/13/24 10/13/24 Rx
1.4 %-0.6 % eye drops in a eyes #1 ea
dropperette (Refresh Classic (PF))
tramadol 50 mg tablet 50 mg PO TID Pain #30 tabs 09/21/24 10/13/24 10/13/24 Rx
Active Medications
Generic Name Dose Route Start Last Admin
Trade Name Freq PRN Reason Stop Dose Admin
Acetaminophen 1,000 mg 10/13/24 22:40 10/15/24 00:17
Acetaminophen 500 Mg Tablet PO 11/10/24 22:39 1,000 mg
Q4HPRN PRN Administration
mild pain
Albuterol/Ipratropium 3 ml 10/14/24 09:31
Ipratropium 0.5/Albuterol 3 Mg (3 Ml Ampul) INH
R Q4HPRN PRN
sob
Protocol
Amlodipine Besylate 5 mg 10/14/24 09:00 10/15/24 08:12
Amlodipine 5 Mg Tablet PO 11/11/24 08:59 5 mg
BID GLORIA Administration
Artificial Tears 1 drops 10/13/24 22:49
Artificial Tears Pf (Refresh) 10 Drop Droperette BOTH EYES 11/10/24 22:48
DAILYPRN PRN
dryness
Artificial Tears 1 drops 10/13/24 22:40
Artificial Tears Pf (Refresh) 10 Drop Droperette BOTH EYES 11/10/24 22:39
Q2HPRN PRN
dry eyes
Ceftriaxone Sodium 1,000 mg 10/13/24 22:40 10/14/24 22:38
Ceftriaxone 1000 Mg / 10 Ml Vial IV 1,000 mg
Q24H GLORIA Administration
Heparin Sodium 5,000 units 10/14/24 08:00 10/15/24 08:10
Heparin 5,000 Units/Ml 1 Ml Vial SC 11/11/24 07:59 5,000 units
Q12 GLORIA Administration
Heparin Sodium (Porcine) 500 unit 10/13/24 22:45 10/15/24 05:18
Heparin Flush Pf (100 Unit/Ml) 5 Ml Syringe IV 11/10/24 22:44 500 unit
PER PROTOCOL GLORIA Administration
Hydromorphone HCl 0.5 mg 10/13/24 22:40 10/15/24 03:22
Hydromorphone 0.5 Mg/0.5 Ml Syringe IV 10/27/24 22:39 0.5 mg
Q4HPRN PRN Administration
severe pain
Doxycycline Hyclate 100 mg/ 260 mls @ 260 mls/hr 10/13/24 22:40 10/14/24 22:38
Sodium Chloride IV 260 mls
Q12H GLORIA Administration
Ondansetron HCl 4 mg 10/13/24 22:40
Ondansetron 4 Mg/2 Ml Vial IV 11/10/24 22:39
Q6HPRN PRN
nausea and vomiting
Sodium Chloride 0 flush 10/14/24 09:00
Sodium Chloride 0.9% (Flush) Syringe IV 11/11/24 08:59
PER PROTOCOL GLORIA
Sterile Water 10 ml 10/13/24 22:00 10/14/24 22:38
Sterile Water For Injection 10 Ml Vial IV 11/10/24 21:59 10 ml
Q24H GLORIA Administration
Tramadol HCl 50 mg 10/13/24 22:40 10/15/24 08:19
Tramadol Hcl 50 Mg Tablet PO 11/10/24 22:39 50 mg
TID GLORIA Administration
Review of Systems
-
All Other Systems: Reviewed and Negative (Except as documented)
Physical Exam
-
General: Comfortable
Cardiology: S1 and S2
GI: Soft and Normal Bowel Sounds; Negative Distended
Musculoskeletal: No Edema
Psych: Calm
Labs
Lab Results
WBC 4.3 10^3/uL (4.8-10.8) L 10/15/24 05:19
RBC 3.39 10^6/uL (4.20-5.40) L 10/15/24 05:19
Hgb 9.5 g/dL (12.0-16.0) L 10/15/24 05:19
Hct 30.9 % (37.0-47.0) L 10/15/24 05:19
MCV 91.2 fL (81.0-99.0) 10/15/24 05:19
MCH 28.0 pg (27.0-31.0) 10/15/24 05:19
MCHC 30.7 g/dL (33.0-37.0) L 10/15/24 05:19
RDW 19.5 % (11.5-14.5) H 10/15/24 05:19
Plt Count 317 10^3/uL (130-400) 10/15/24 05:19
MPV 9.2 fL (7.4-10.4) 10/15/24 05:19
Abs Immat Gran (auto) 0.0 10^3/uL (0-0.05) 10/14/24 08:17
Absolute Neuts (auto) 3.0 10^3/uL (1.4-6.5) 10/14/24 08:17
Absolute Lymphs (auto) 0.6 10^3/uL (1.2-3.4) L 10/14/24 08:17
Absolute Monos (auto) 0.6 10^3/uL (0.1-0.6) 10/14/24 08:17
Absolute Eos (auto) 0.0 10^3/uL (0-0.7) 10/14/24 08:17
Absolute Basos (auto) 0.0 10^3/uL (0-0.2) 10/14/24 08:17
Immature Gran % 0.2 % (0-0.5) 10/14/24 08:17
Neutrophils % 72.7 % (42.2-75.2) 10/14/24 08:17
Lymphocytes % 13.2 % (20.5-51.1) L 10/14/24 08:17
Monocytes % 13.2 % (1.7-9.3) H 10/14/24 08:17
Eosinophils % 0.2 % (0-6) 10/14/24 08:17
Basophils % 0.5 % (0-2) 10/14/24 08:17
Creatinine 0.6 mg/dL (0.6-1.0) 10/15/24 05:19
Vital Signs
Vital Signs
Temp Pulse Resp BP Pulse Ox
97.5 F 98 18 153/98 98
10/15/24 07:10 10/15/24 08:12 10/15/24 07:10 10/15/24 08:12 10/15/24 07:10

Documented by User: Yajaira James MD 10/15/24 21:19
Plan
Plan
Continue Management of Acute bronchitis per primary.
bilateral nodules seen on x-ray of the lung has been identified on Previous PET/CT scan.
Will continue on lonsurf
Palliative care involved
ATTENDING ADDENDUM
Pt feels she is benefitting clinically from Lonsurf with less in the was of obstructive symptoms.
c/o sinusitis symptoms, this may be the infectious source vs bronchitis
Taz Goldman PRN cough. Avoid codeine due to baseline constipation and recent bowel obstructions.
Reasonable to continue Lonsurf with perception of clinical benefit.
Thank you for consult, will follow along with you.
--- NOTE | 2024-10-15 11:23 | W.CON.PAL ---
Consultation
-
Date/Time Consultation Requested: 10/14/2024
Date/Time Consultation Performed: 10/15/2024
Requesting Provider: Dr. Dean
Performing Provider: Dr. Echeverria
Reason for Consult: Goals of Care Discussion
Primary Diagnosis: IV Rectal Adenocrcinoma
Consult Requested By: Patient's Physician
Reason for Admission
Illness Course/HPI
Ashley is a 69 y/o female with Stage IV rectal adenocarcinoma since 2012, was admitted to hospital in aug with SBO/partial SBo, which resolved with conservative management. She was seen durign that hospital stay by myself and was offered home
palliative care visits. Patient was called multiple times by my office, but as she was feeling better, moving her bowels, minimal pain, and had resumed her lonsurf treatment regimen, she declined need for palliative care visits. She had 2 cycles of
lonsurf (5 days on, 2 days off), and was set to start the next one later this week (appointment with dr. soto on the ). Unfortunately about 2 weeks ago her became ill with URI symptoms, and she became sick around the with the
same. She presented to the hospital when her symptoms were not improving. Initially she had severe nausea and difficulty with PO intake - improved with medication for gerd. she tolerated breakfast this morning. She reports she is starting to feel
better since being on antibiotics for her bronchitis.
Functional Status
Ashley lives in a 2 velvet home with her spouse in [facility]. She is at her baseline independent of her ADLs and does not use any assistive device. she still drives. she is able to go up the stairs once daily, but has mostly been staying on the main
floor.
She reports that her may have some early cognitive changes. she is considering having her stepdaughter be her medical poa jointy with her . she has other children are not involved regulary with her at this time
Goals of Care Discussion
-
Patient able to participate in discussion at time of visit: Yes
Patient Goals
Patient's goals remain treatment oriented at that time, she wishes to resume lonsurf treatment when she is feeling better from bronchitis
She has the contact information for palliative care and reports she will call us if she needs our services.
Pain & Symptom Assessment
-
reports cough, weakness.
denies abdominal symptoms currently. toleated breakfast.
Objective Data
-
Objective Data:
Vital Signs
Temp Pulse Resp BP Pulse Ox
97.5 F 98 18 153/98 98
10/15/24 07:10 10/15/24 08:12 10/15/24 07:10 10/15/24 08:12 10/15/24 07:10
Laboratory Results
10/15/24 05:19
10/15/24 05:19
Total Protein 6.9 g/dl (6.3-8.2) 10/15/24 05:19
Albumin 3.4 g/dl (3.5-5.0) L 10/15/24 05:19
Palliative Performance Scale
Palliative Performance Scale:
PPS Level Ambulation Activity & Evidence of Disease Self Care Intake Conscious Level
100% Full Normal Activity & Work; Full Intake Full
No Evidence of Disease
90% Full Normal Activity & Work; Full Normal Full
Some Evidence of Disease
80% Full Normal Activity with Effort Full Normal or Full
Some Evidence of Disease Reduced
70% Reduced Unable Normal Job/Work Full Normal or Full
Significant Disease Reduced
60% Reduced Unable Hobby/Housework Occasional Normal or Full or Confusion
Significant Disease Assistance Reduced
50% Mainly Sit/Lie Unable to do Any Work Considerable Normal or Full or Confusion
Extensive Disease Assistance Req'd Reduced
40% Mainly in Bed Unable to do Most Activity Mainly Assistance Normal or Full or Drowsy;
Extensive Disease Reduced +/- Confusion
30% Totally Bed Unable to do Any Activity Total Care Normal or Full or Drowsy;
Bound Extensive Disease Reduced +/- Confusion
20% Totally Bed Bound Unable to do Any Activity Total Care Minimal to Full or Drowsy;
Extensive Disease Sips +/- Confusion
10% Totally Bed Bound Unable to do Any Activity Total Care Mouth Care Drowsy or Coma;
Extensive Disease Only +/- Confusion
0%
PPS Score Level:
Palliative Performance Score Response
Palliative Performance Score Response: 60%
Physical Exam
-
General: Comfortable and Other (coughing)
Neuro: Awake, Alert and Oriented
Psych: Calm
Assessment / Plan
-
Assessment/Plan:
goals are treatment oriented.
total floor time 40 mins
[2024-10-15] MEDS: VIBRAMYCIN 260 MG IV ×2 (11:29→21:38)
--- NOTE | 2024-10-15 11:57 | CM ---
CM following re: discharge planning.
Reviewed pt's chart, met with pt.
Palliative consult noted - pt preferred treatment.
Pt lives with and she is independent with functional ability.
D/C plan: home with anticipated no needs. family to transport at discharge.
CM will follow with discharge plan updates as hospitalization progresses
--- NOTE | 2024-10-15 14:15 | PTOTSP ---
Video Swallow Examination
Study limited to thin liquid and solids due to patient nausea. No aspiration or pharyngeal stasis. Esophagus slow to empty.
Recommend
1. Regular solids and thin liquids.
2. Intersperse sip of liquid after every for bites of solids/semi-solids.
3. Meds as tolerated.
4. Remain upright for at least 30 minutes after meals.
No further ST indicated.
[2024-10-15 15:10] VITALS: BP 162/97
[2024-10-15] MEDS: ULTRAM PO ×2 (18:25→23:31)
[2024-10-15] MEDS: FLUSH (NSS) 3 FLUSH IV (21:36)
[2024-10-15] MEDS: STERILE WATER FOR INJECTION 10 ML IV (21:38)
[2024-10-15] MEDS: ROCEPHIN 1000 MG IV (21:38)
[2024-10-15 23:00] VITALS: BP 147/89
[2024-10-16] MEDS: DILAUDID 0.5 MG IV ×2 (05:45→09:54)
[2024-10-16] MEDS: FLUSH (NSS) 2 FLUSH IV (05:45)
[2024-10-16 06:23] LABS: Hematocrit 30.1 % (37.0-47.0); Hemoglobin 9.6 g/dL (12.0-16.0); Mean Corp Hgb Conc. 31.9 g/dL (33.0-37.0); Mean Corpuscular Hgb 28.5 pg (27.0-31.0); Mean Corpuscular Volume 89.3 fL (81.0-99.0); Mean Platelet Volume 9.6 fL (7.4-10.4); Platelet Count 330 10^3/uL (130-400); Red Blood Cell Count 3.37 10^6/uL (4.20-5.40); Red Cell Dist. Width 19.4 % (11.5-14.5); White Blood Cell Count 4.1 10^3/uL (4.8-10.8)
[2024-10-16 07:03] LABS: Blood Urea Nitrogen 10 mg/dl (7-17); Calcium 8.6 mg/dl (8.4-10.2); Carbon Dioxide 18 mmol/L (22-30); Chloride 106 mmol/L (98-107); Estimated Creatinine Clearance 87 ml/min; Glucose 91 mg/dl (70-99); Potassium 3.7 mmol/L (3.5-5.1); Sodium 138 mmol/L (135-145); eGFR > 60.00
[2024-10-16 07:59] VITALS: BP 123/83
--- NOTE | 2024-10-16 08:43 | W.PN.HOSP.TC ---
Addendum entered and electronically signed by You Alexis MD 10/16/24 23:40:
Attending Addendum-
I saw and evaluated the patient. I reviewed the resident�s note and agree with findings and plan as documented in the resident�s note. Sub: Feels greatly improved. Passing flatus and having BM. ready to go home Full 12 point ROS reviewed and
negative except as documented Exam: Vitals reviewed in chart GEN-NAD, heart RRR lungs clear abd soft LE no edema
# Acute viral bronchitis/pneumonia
-chest c-oez-Vzvofap densities projecting over both lungs, suspicious for metastatic pulmonary nodules.
-Influenza and COVID-negative
-Blood cultures NGTD
-Levaquin given in ER->ceftriaxone/doxycycline
- doxy on dc
# Pulm Nodules
- unclear if infectious vs metastatic
- apprecaite heme input
- f/u as OP
# Ongoing abdominal pain rule out recurrence of small bowel obstruction
-resolved
# Recent small bowel obstruction secondary to adhesions from prior surgery/malignancy related
-Abdominal x-ray- no obs
-advanced diet daksha well
- VFSS - wnl
# Hypokalemia secondary to loose stools/decreased p.o. intake
-resolved
# Stage IV metastatic rectal carcinoma with metastases to liver, spine- lonsurf as OP f/u onc as OP
# Rectal cancer status post proctectomy, coloanal anastomosis, loop ileostomy with reversal, liver metastases status post left hepatic lobectomy
# Chronic pain secondary to malignancy
-Continue tramadol standing, as needed IV Dilaudid in place of usual p.o. oxycodone
-Patient follows with Dr. Mckeon
Essential hypertension
-Continue amlodipine
Fibromyalgia
Depression
History of paranoia/anxiety
Lumbar degenerative disc disease
Chronic anemia
-Hemoglobin stable
Full code
DVT prophylaxis�heparin
Dispo DC home today
Time spent coordinating care, DC planning, review of DC plan of care with resident, transition of care, review of records, med rec/scripts sent electronically, consults, notes, d/w consultants, nursing, heme/onc and CM� 33 mins
Original Note:
Today's Communication/Plan
-
.
Assessment / Plan
Assessment / Plan
Ms. Ashley Rutledge is a 69yoF pmh stage IV rectal carcinoma w current active mets to liver, bowel, and spine, anxiety, and lumbar DDD in the hospital for bronchitis.
Acute bronchitis/pneumonia:
- No elevated wbc, fever, etc
- CXR: Elevated right hemidiaphragm. Small right pleural effusion. Nodular densities projecting over both lungs, suspicious for metastatic pulmonary nodules
- Flu/Covid negative
- Ceftriaxone & doxycycline - day 4
- Speech eval - recommends videofluoroscopic swallowing study, IDDSI level 4 puree diet, thin liquids. Medications crushed in puree
- PT/OT consulted
- duonebs prn
Abdominal pain
Recently admitted for small bowel obstruction due to adhesions from malignancy
Swallow dysfunction associated with nausea
- SBO ruled out - CXR neg for bowel obstruction and free air
- videofluoroscopic swallowing study: advance to regular diet
Hypokalemia:
Hypomagnesemia:
- resolved with IV potassium and IV mag sulfate
Stage IV metastatic rectal carcinoma with metastases:
- Continue home tramadol, acetaminophen
- prn Dilaudid
- concern for lung mets based on nodular densitie in CXR
- consult oncology
- consult palliative care
Anxiety/depression:
- 0.5mg IV ativan given yesterday
Essential hypertension:
- Continue amlodipine
Severe protein calorie malnutrition
- Dietary consulted
Transaminitis
- elevated alk phos likely secondary to bone metastases
Diet: regular diet, thin liquids
DVT ppx: subq heparin
Code status: FULL CODE
Anticipated Discharge: Today
Subjective/Interval History
-
Date of Service: October 16, 2024
Ms. Ashley Rutledge is a 69yoF pmh stage IV rectal carcinoma w current active mets to liver, bowel, and spine, anxiety, and lumbar DDD in the hospital for bronchitis. No acute overnight events. She feels better today than yesterday. Pt is cleared by
oncology.
Objective Data
-
Labs:
Laboratory Results
10/16/24
05:59
WBC 4.1 L
Hgb 9.6 L
Hct 30.1 L
Plt Count 330
Sodium 138
Potassium 3.7
Chloride 106
Carbon Dioxide 18 L
BUN 10
Creatinine 0.5 L
Glucose 91
Calcium 8.6
Vital Signs:
Vital Signs
Temp Pulse Resp BP Pulse Ox
97.8 F 102 16 123/83 94
10/16/24 07:59 10/16/24 07:59 10/16/24 07:59 10/16/24 07:59 10/16/24 07:59
I&O
10/15/24 10/16/24 10/17/24
06:59 06:59 06:59
Intake Total 1320 / 1320 900 / 900
Balance 1320 / 1320 900 / 900
Review of Systems
-
Constitutional: Reports No Symptoms
EENT: Reports No Symptoms Reported
Respiratory: Reports Cough and Trouble Breathing
Cardiac: Reports No Symptoms
Abdomen/GI: Reports Abdominal Pain; Denies Nausea, Vomiting, Diarrhea or Constipated
Physical Exam
-
General: Appears Chronically Ill
HEENT: Normocephalic, Atraumatic, Moist Mucous Membranes and Anicteric
Respiratory: Clear to Auscultation and Non Labored Respirations
Cardiac: Regular Rhythm and S1/S2
GI: Soft, Nontender, Nondistended and Normal Bowel Sounds
Musculoskeletal: No Clubbing, No Cyanosis and No Edema
Skin: Warm and Dry
Neuro: AO x 3
Psych: Calm
[2024-10-16] MEDS: ULTRAM 50 MG PO (08:54)
[2024-10-16] MEDS: NORVASC 5 MG PO (08:54)
[2024-10-16] MEDS: HEPARIN 5000 UNITS SC (08:54)
--- NOTE | 2024-10-16 09:50 | W.PN.ONC ---
Today's Communication / Plan
-
okay for d/c per onc
resume Lonsurf, next cycle to start 10/20
f/u with me on 11/06
Impression
Impression
metastatic rectal cancer, diagnosed 2012 w/ liver mets; on and off treatment since diagnosis
On Lonsurf
Acute Bronchitis
Plan
Plan
Continue Management of Acute bronchitis per primary.
bilateral nodules seen on x-ray of the lung has been identified on Previous PET/CT scan.
Will continue on lonsurf - to start next cycle on 10/20 - reviewed w/ Vera
Palliative care involved
Will reschedule office f/u for 11/06/24, cancel 10/17 office visit
Subjective/Objective
Subjective/Objective
feeling subjectively better
Vital Signs:
Vital Signs
Temp Pulse Resp BP Pulse Ox
97.8 F 102 16 123/83 94
10/16/24 07:59 10/16/24 07:59 10/16/24 07:59 10/16/24 07:59 10/16/24 07:59
Lab Results:
Laboratory Data
WBC 4.1 10^3/uL (4.8-10.8) L 10/16/24 05:59
Hgb 9.6 g/dL (12.0-16.0) L 10/16/24 05:59
Plt Count 330 10^3/uL (130-400) 10/16/24 05:59
eGFR > 60.00 10/16/24 05:59
[2024-10-16] MEDS: VIBRAMYCIN 260 MG IV (09:56)
[2024-10-16] MEDS: TYLENOL 1000 MG PO (10:05)
--- NOTE | 2024-10-16 11:19 | CM ---
M following re: discharge planning.
Reviewed pt's chart, met with pt.
Pt lives with and she is independent with functional ability.
D/C plan: home with anticipated no needs. Family to transport at discharge.
CM will follow with discharge plan updates as hospitalization progresses
[2024-10-16 15:48] VITALS: BP 124/80
[2024-10-16] MEDS: ULTRAM PO (16:04)
--- NOTE | 2024-10-16 18:15 | W.DCSUMMARY ---
Addendum entered and electronically signed by You Alexis MD 10/16/24 23:41:
Read, reviewed, and agree. See same day progress note for additional details.
Paul Alexis MD
Original Note:
Documented by User: Mayte Wallis DO, Resident 10/16/24 18:32
Discharge Summary
Discharge Data
Date of Admission: 10/13/24
Date of Discharge: 10/16/24
-
Pending Results: No
Hospital Course
Discharging Physician : Dr. Mayte Wallis, Dr. Paul Alexis
Disposition : home
Principal Discharge diagnosis : community acquired pneumonia
Chronic Discharge diagnosis : stage IV rectal carcinoma, anxiety, lumbar DDD
Hospital Course : Presented to the ED on 10/13 for dysphagia, dypsnea, fatigue, and fever since the day prior. recently had pneumonia. Given levaquin in ED. Admitted 10/13 for dyspnea, abdominal pain in setting of recent SBO secondary to
adhesions/malignancy. Started on ceftriaxone/doxycycline. Chest and abdomen CXR performed. Significant for R pleural effusion and nodular densities concerning for pulmonary nodules. No bowel obstruction or free intraperitoneal air. Speech and
swallow evaluation approved pt for small bite sized soft foods and thin liquids. After modified barium swallow, pt approved for regular solids and thin liquids. Pt's dysphagia improved and she thought it was related to GERD. Pt's cough and dyspnea
improved throughout her stay. Pt tolerated solids well. Oncology followed with pt. The b/l lung nodules seen on CXR are identified on previous PET/CT scan. Oncology is continuing her on lonsurf. Discharged on doxycycline for a total course of seven
days of antibiotics.
Important imaging findings :
Chest/abdomen XR: elevated R hemidiaphragm, small R pleural effusion, nodular densities projecting over both lung - suspicious for pulmonary nodules, no evidence for bowel obstruction or free intraperitoneal air
Procedure findings : n/a
Discharge Plan
-
Patient Disposition: Home (Routine Discharge)
Discharge Diagnosis/Procedures: Acute Bronchitis/pneumonia, Adbominal pain, swallow dysfunction, hypokalemia, hypomagnesemia, stage IV rectal carcinoma, anxiety/depression, essential hypertension, protein calorie malnutrition, transaminitis
Condition: Fair
Diet: As tolerated
Activity: As tolerated
Driving Restrictions: As prior to admission
Bathing Restrictions: None
Instructions: Acute bronchitis in adults
Referrals:
UNKNOWN - PT DOES,NOT KNOW [Family Provider] -
Additional Discharge Medication Instructions: Doxycycline 100 mg capsule twice a day for three days.
Prescriptions:
New
doxycycline monohydrate 100 mg capsule
100 mg PO BID 3 Days Qty: 6 0RF
Continued
amlodipine 5 MG tablet
5 mg PO BID Qty: 30 0RF
tramadol 50 mg Tablet
50 mg PO TID Qty: 30 0RF
Patient Comments:
08/04/2023: last filled 07/29/23, 90 tabs for 30 days from [id number]
acetaminophen [Tylenol Extra Strength] 500 MG tablet
1,000 mg PO Q4HPRN PRN (Reason: mild pain) Qty: 30 0RF
oxycodone 5 mg Tablet
5 mg PO Q4H PRN (Reason: pain) Qty: 30 0RF
Rx Instructions:
pt states usually takes 1-2 a day
Refresh Classic (PF) 10 DROPS dropperette
1 drp BOTH EYES Q2HPRN PRN (Reason: dry eyes) Qty: 1 0RF
Systane (PF) 1 EACH dropperette
1 ea BOTH EYES DAILYPRN PRN (Reason: dryness) Qty: 1 0RF
Discharge Orders:
Discharge Patient (As Directed); Ordered 10/16/24
Ordered By: Mayte Wallis
Discharge Date and Time
Discharge Date/Time: 10/16/24 16:42
Print Language: FAROESE

Documented by User: You Alexis MD 10/16/24 23:37
Discharge Summary
Discharge Data
Date of Admission: 10/13/24
Date of Discharge: 10/16/24
Discharge Plan
-
Patient Disposition: Home (Routine Discharge)
Discharge Diagnosis/Procedures: Acute Bronchitis/pneumonia, Adbominal pain, swallow dysfunction, hypokalemia, hypomagnesemia, stage IV rectal carcinoma, anxiety/depression, essential hypertension, protein calorie malnutrition, transaminitis
Condition: Fair
Diet: As tolerated
Activity: As tolerated
Driving Restrictions: As prior to admission
Bathing Restrictions: None
Instructions: Acute bronchitis in adults
Referrals:
UNKNOWN - PT DOES,NOT KNOW [Family Provider] -
Additional Discharge Medication Instructions: Doxycycline 100 mg capsule twice a day for three days.
Prescriptions:
New
doxycycline monohydrate 100 mg capsule
100 mg PO BID 3 Days Qty: 6 0RF
Continued
amlodipine 5 MG tablet
5 mg PO BID Qty: 30 0RF
tramadol 50 mg Tablet
50 mg PO TID Qty: 30 0RF
Patient Comments:
08/04/2023: last filled 07/29/23, 90 tabs for 30 days from [facility]#[id number]
acetaminophen [Tylenol Extra Strength] 500 MG tablet
1,000 mg PO Q4HPRN PRN (Reason: mild pain) Qty: 30 0RF
oxycodone 5 mg Tablet
5 mg PO Q4H PRN (Reason: pain) Qty: 30 0RF
Rx Instructions:
pt states usually takes 1-2 a day
Refresh Classic (PF) 10 DROPS dropperette
1 drp BOTH EYES Q2HPRN PRN (Reason: dry eyes) Qty: 1 0RF
Systane (PF) 1 EACH dropperette
1 ea BOTH EYES DAILYPRN PRN (Reason: dryness) Qty: 1 0RF
Discharge Orders:
Discharge Patient (As Directed); Ordered 10/16/24
Ordered By: Mayte Wallis
Discharge Date and Time
Discharge Date/Time: 10/16/24 16:42
Print Language: FAROESE
== END 2024-10-16 16:42 | disposition home or self-care (01) | DRG 194 ==
LOC: 3 WEST ACU 22:05
PROVIDERS: Internal Medicine; ADMITTING PHYSICIAN Hospitalist; ATTENDING PHYSICIAN Family Medicine; CONSULT PHYSICIAN Internal Medicine Hospice and Palliative Medicine; EMERGENCY PHYSICIAN Emergency Medicine; OTHER PHYSICIAN Internal Medicine Hematology & Oncology
DX: J18.9 Pneumonia, unspecified organism (principal); C19 Malignant neoplasm of rectosigmoid junction; C78.7 Secondary malignant neoplasm of liver and intrahepatic bile duct; Z11.52 Encounter for screening for COVID-19; E87.6 Hypokalemia; I10 Essential (primary) hypertension; M79.7 Fibromyalgia; F32.A Depression, unspecified; F41.9 Anxiety disorder, unspecified; J20.8 Acute bronchitis due to other specified organisms
CPT/HCPCS: 74022; 74230; 80048; 80053; 83735; 84132; 84145; 85025; 85027; 87040; 87502; 87811; 92610; 92611; 93005; 94640; 96361; 96365; 96375; 96376; 99291

== ENCOUNTER 2024-11-26 16:45 | Inpatient (IN) | payer OTHER, SELFPAY ==
[2024-11-26] VITALS (8 sets, daily range): BP systolic 117–139; BP diastolic 79–99; BMI 18.8
[2024-11-26] MEDS: DILAUDID 0.25 MG IV (13:14)
[2024-11-26] MEDS: NSS 1000 IV ×2 (13:14→21:07)
[2024-11-26 13:24] LABS: % Basophils 0.3 % (0-2); % Immature Granulocytes 0.7 % (0-0.5); % Monocytes 4.3 % (1.7-9.3); % Neutrophils 92.7 % (42.2-75.2); Absolute Immature Granulocytes 0.1 10^3/uL (0-0.05); Absolute Lymphocytes 0.3 10^3/uL (1.2-3.4); Absolute Monocytes 0.6 10^3/uL (0.1-0.6); Absolute Neutrophils 13.9 10^3/uL (1.4-6.5); Hematocrit 31.1 % (37.0-47.0); Hemoglobin 10.5 g/dL (12.0-16.0); Mean Corp Hgb Conc. 33.8 g/dL (33.0-37.0); Mean Corpuscular Hgb 30.3 pg (27.0-31.0); Mean Corpuscular Volume 89.6 fL (81.0-99.0); Mean Platelet Volume 9.7 fL (7.4-10.4); Nucleated Red Blood Cells % 0.1 %; Platelet Count 370 10^3/uL (130-400); Red Blood Cell Count 3.47 10^6/uL (4.20-5.40); Red Cell Dist. Width 26.8 % (11.5-14.5)
[2024-11-26 13:39] LABS: ALT (SGPT) 27 U/L (0-35); AST (SGOT) 91 U/L (14-36); Albumin 3.2 g/dl (3.5-5.0); Alkaline Phosphatase 509 U/L (38-126); Blood Urea Nitrogen 28 mg/dl (7-17); Calcium 8.7 mg/dl (8.4-10.2); Carbon Dioxide 27 mmol/L (22-30); Chloride 94 mmol/L (98-107); Glucose 99 mg/dl (70-99); Lipase 37 U/L (23-300); Potassium 4.1 mmol/L (3.5-5.1); Sodium 134 mmol/L (135-145); Total Bilirubin 14.7 mg/dl (0.2-1.3); eGFR > 60.00
[2024-11-26 14:01] LABS: Urine Albumin Trace (Neg - Trace); Urine Bilirubin 3+ (Negative); Urine Character Clear (Clear); Urine Color Amber; Urine Glucose Negative (Negative); Urine Ketone 1+ (Negative); Urine Leukocyte Trace (Negative); Urine Nitrite Positive (Negative); Urine Occult Blood 2+ (Negative); Urine Urobilinogen 3+ (Neg - 1+)
[2024-11-26 14:09] LABS: Urine Bacteria Few (Negative); Urine Red Blood Cell 0-2 /HPF (0-2); Urine Squamous Cell 26-30 /LPF (Few)
[2024-11-26 14:09] LABS: Anisocytosis 1+; Hypochromasia 1+; Normal RBC Morphology No; Ovalocytes 1+; Polychromasia 1+; Target Cells 2+
--- NOTE | 2024-11-26 16:18 | HPS.HSE ---
Family Physician
-
Family Physician: Thierry De La Torre Jr.
Chief Complaint
-
abdominal pain
History of Present Illness
69-year-old female past medical history of stage IV metastatic rectal cancer status post proctectomy, coloanal anastomosis, loop ileostomy with metastases to liver status post hepatic lobectomy on Lonsurf, spine, chronic pain, hypertension,
fibromyalgia, depression, anxiety/paranoia, lumbar degenerative disease, chronic anemia, presenting with abdominal pain, vomiting and jaundice.
She lives with her . She denies any fevers or chills or diarrhea or urinary symptoms. Denies chest pain or shortness of breath.
Patient follows with Dr. Radha Mckeon.
She does not smoke or drink alcohol.
Medical History
Past Medical History
Past Medical History: Reports Other (stage IV metastatic rectal cancer status post proctectomy, coloanal anastomosis, loop ileostomy with metastases to liver status post hepatic lobectomy on Lonsurf, spine, chronic pain, hypertension, fibromyalgia,
depression, anxiety/paranoia, lumbar degenerative disease, chronic anemia)
Past Surgical History: Reports None
Social History
Tobacco: Non-smoker
Alcohol: None
Drug: None
Family History
Family History: Not pertinent
Allergies / Home Medications
Allergies reflects when Allergies were last updated in [employer].
Home Medications with original date entered in [employer]
Allergy/Medication List:
Allergies
Allergy/AdvReac Type Severity Reaction Status Date / Time
clarithromycin [From Biaxin] Allergy Tongue Verified 11/26/24 10:59
Swelling
Iodinated Contrast Media Allergy Itching Verified 11/26/24 10:59
penicillin V [Penicillin V] Allergy Hives Verified 11/26/24 10:59
ragweed pollen Allergy Shortness Verified 11/26/24 10:59
of Breath
silver Allergy per pt Verified 11/26/24 10:59
[From Tegaderm AG Mesh] placed
over port
per pt and
she had
rash
sulfamethoxazole Allergy Tongue Verified 11/26/24 10:59
[From Bactrim] Swelling
trimethoprim [From Bactrim] Allergy Tongue Verified 11/26/24 10:59
Swelling
Home Medications
acetaminophen 500 mg tablet (Tylenol Extra Strength) 1,000 mg (2 x 500 mg) PO Q4HPRN PRN mild pain #30 tabs 09/21/24
amlodipine 5 mg tablet 5 mg PO BID Blood pressure #30 tabs 09/21/24
polyvinyl alcohol-povidone (PF) 1.4 %-0.6 % eye drops in a dropperette (Refresh Classic (PF)) 1 drp BOTH EYES Q2HPRN PRN dry eyes #1 ea 09/21/24
oxycodone 5 mg tablet 5 mg PO Q4HPRN PRN severe pain 11/26/24
tramadol 50 mg tablet 50 mg PO TIDPRN PRN moderate pains 11/26/24
Review of Systems
-
History Source: Patient
A 12 point ROS was completed and negative except as noted: Yes
Constitutional: Reports No Symptoms
EENT: Reports No Symptoms
Respiratory: Reports No Symptoms
Cardiac: Reports No Symptoms
Abdomen/GI: Reports See HPI
: Reports No Symptoms
Musculoskeletal: Reports No Symptoms
Skin: Reports No Symptoms
Neurological: Reports No Symptoms
Endocrine: Reports No Symptoms
Hematologic/Lymphatic: Reports No Symptoms
Psych: Reports No Symptoms
Physical Exam
Vital Signs
Vital Signs
Temp Pulse Resp BP Pulse Ox
97.8 F 101 13 139/83 98
11/26/24 16:13 11/26/24 13:10 11/26/24 13:10 11/26/24 13:10 11/26/24 13:10
Physical Exam
General: Well Developed, Well Nourished and No Apparent Distress
HEENT: NormoCephalic, Moist mucous membranes, Atraumatic and Other (jaundiced )
Respiratory: Clear
Cardiac: S1/S2 and Regular Rhythm; No Murmur or Rub
GI: Soft, Non Distended, Normal Bowel Sounds and Tender; No Organomegaly
Rectal: Deferred by Provider
Musculoskeletal: No Clubbing, No Cyanosis and No Edema
Skin: No Rash
Neuro: Nonfocal/grossly intact
Laboratory Results
-
11/26/24 13:07
11/26/24 13:07
Laboratory Results
Total Bilirubin 14.7 mg/dl (0.2-1.3) H 11/26/24 13:07
AST 91 U/L (14-36) H 11/26/24 13:07
ALT 27 U/L (0-35) 11/26/24 13:07
Alkaline Phosphatase 509 U/L (38-126) H 11/26/24 13:07
Lipase 37 U/L (23-300) 11/26/24 13:07
Data Reviewed
-
Lab Data: Labs Reviewed by me
Old Records: Reviewed
Impression/Plan
-
IMPRESSION:
PLAN:
# Weakness/vomiting/transaminitis/jaundice secondary to worsening liver metastases
# Stage IV metastatic rectal cancer status post proctectomy, coloanal anastomosis, loop ileostomy
# Chronic cancer pain
-Bilirubin of 14.7
-Urinalysis no evidence of UTI
-CT abdomen pelvis shows increased size of pleural, mesenteric, retroperitoneal metastatic deposits likely worsening metastatic disease, heterogeneous appearance of the liver with prominence of 4.1 cm hyperdense lesion of the medial right hepatic
lobe
-There is also multiple fluid-filled loops of small bowel within the pelvis/lower abdomen upper limits of normal similar to prior
-Small volume ascites
-Tylenol, tramadol, Dilaudid, Zofran
-Consult oncology regarding further recommendations, although hospice seems appropriate
Chronic anemia
-Stable
Essential hypertension
-Continue felodipine
Fibromyalgia
Depression
Anxiety/paranoia
Lumbar degenerative disease
Full code
DVT prophylaxis�heparin
Regular diet
[2024-11-26] MEDS: DILAUDID 0.5 MG IV ×2 (16:35→20:55)
[2024-11-26] MEDS: HEPARIN 5000 UNITS SC (21:27)
[2024-11-26] MEDS: NORVASC 5 MG PO (21:27)
[2024-11-26] MEDS: TYLENOL 1000 MG PO (21:27)
[2024-11-26] MEDS: REFRESH EYE DROPS (PF) 1 DROPS BOTH EYES (21:27)
--- NOTE | 2024-11-27 00:58 | PTCARENOTE ---
Pt admitted from ED to 3[facility], AAOx3. + abdominal pain, requesting pain meds upon arrival to unit. Pt started on IVF per MD order. Pt afebrile, VSS. + nausea/vomiting. No bowel movement this shift. Bedside commode at bedside per patient's request.
Plan to continue IVF, pain management and PRN antiemetics.
[2024-11-27] MEDS: DILAUDID 0.5 MG IV ×4 (02:38→12:20)
[2024-11-27] MEDS: NSS 1000 IV (06:03)
[2024-11-27] MEDS: ZOFRAN 4 MG IV (06:04)
[2024-11-27] MEDS: REFRESH EYE DROPS (PF) 1 DROPS BOTH EYES (06:09)
[2024-11-27 06:13] LABS: % Basophils 0.3 % (0-2); % Eosinophils 0.1 % (0-6); % Lymphocytes 2.9 % (20.5-51.1); % Monocytes 5.3 % (1.7-9.3); % Neutrophils 90.4 % (42.2-75.2); Absolute Immature Granulocytes 0.1 10^3/uL (0-0.05); Absolute Lymphocytes 0.4 10^3/uL (1.2-3.4); Absolute Monocytes 0.7 10^3/uL (0.1-0.6); Absolute Neutrophils 11.7 10^3/uL (1.4-6.5); Hematocrit 31.4 % (37.0-47.0); Hemoglobin 10.5 g/dL (12.0-16.0); Mean Corp Hgb Conc. 33.4 g/dL (33.0-37.0); Mean Corpuscular Hgb 30.2 pg (27.0-31.0); Mean Corpuscular Volume 90.2 fL (81.0-99.0); Mean Platelet Volume 9.3 fL (7.4-10.4); Nucleated Red Blood Cells % 0 %; Platelet Count 360 10^3/uL (130-400); Red Blood Cell Count 3.48 10^6/uL (4.20-5.40); Red Cell Dist. Width 27.5 % (11.5-14.5)
[2024-11-27 06:28] LABS: ALT (SGPT) 26 U/L (0-35); AST (SGOT) 92 U/L (14-36); Albumin 2.9 g/dl (3.5-5.0); Alkaline Phosphatase 476 U/L (38-126); Blood Urea Nitrogen 27 mg/dl (7-17); Calcium 8.2 mg/dl (8.4-10.2); Carbon Dioxide 24 mmol/L (22-30); Chloride 100 mmol/L (98-107); Estimated Creatinine Clearance 79 ml/min; Glucose 79 mg/dl (70-99); Sodium 138 mmol/L (135-145); Total Bilirubin 13.7 mg/dl (0.2-1.3); Total Protein 6.6 g/dl (6.3-8.2); eGFR > 60.00
[2024-11-27 07:10] VITALS: BP 130/82
[2024-11-27] MEDS: NORVASC 5 MG PO (08:27)
[2024-11-27] MEDS: HEPARIN 5000 UNITS SC (08:27)
--- NOTE | 2024-11-27 09:10 | PTOTSP ---
Speech Language Pathology
Pt seen for clinical bedside swallow evaluation. Recent VSE completed 10/15/24--Limited study secondary to nausea but no aspiration or pharyngeal residue. Recommendations for regular solids/thin liquids with DATA PROCESSING EQUIPMENT REPAIRER sign off. This date, pt with
inconsistent reports. RN overnight noted coughing with liquids. When initially discussed this with pt, she endorsed coughing with both solids and liquids at home, stating this was new since VSE completed last month. However, by end of evaluation,
pt denying this and stated that she gets 'heartburn' when eating only. Seen with P.O. trials of jello, thin liquid, and regular solids provided. Pt only accepted 1 extremely small bite of jello and regular solid. Decreased lingual movement noted
with oral cavity not fully closed during oral manipulation. Pt using liquid washes to aid oral phase of swallow. Unsure of reason for this. Facial grimacing noted with swallow. Pt unable to state why she is doing this, but denied pain. No overt
signs of aspiration.
Recommend:
(1) Regular solids/thin liquids
(2) General aspiration precautions
(3) Esophageal precautions
(4) Meds as tolerated
(5) DATA PROCESSING EQUIPMENT REPAIRER to continue to follow
--- NOTE | 2024-11-27 09:49 | CON.ONC ---
Impression
Impression
Stage IV metastatic rectal cancer status post multiple surgeries currently on Lonsurf for treatment
Follows Dr. Radha Mckeon at [facility]
CT scan demonstrated worsening of her metastatic disease, with increased size compared to previous
Now with new onset jaundice nausea vomiting transaminitis and weakness
Cannot pursue treatment with current medication with elevated LFTs
Patient reports she is going to create a living will/advance directive at some point next week, at first, she reported she is planning on continuing treatment once discharged.
After discussion, she is agreeable to speaking to hospice/palliative care to pursue comfort measures
Unfortunately prognosis extremely poor
Plan
Plan
#Stage IV rectal carcinoma
Supportive measures per primary, symptomatic management with pain meds and antiemetics as needed
Unfortunately cannot pursue treatment on current medication with elevated LFTs
Will place hospice care consult, currently pending
Dr. Mckeon spoke to patient's over the phone who was agreeable to hospice and changed her CODE STATUS to DNR. Orders updated.
Encourage comfort care
Patient History
History of Present Illness
69-year-old female past medical history of stage IV metastatic rectal cancer status post proctectomy, coloanal anastomosis, loop ileostomy with metastasis to the liver status post hepatic lobectomy, chronic pain, hypertension, fibromyalgia,
depression, chronic anemia presents with abdominal pain, vomiting and jaundice. Patient is currently receiving lonsuf and follows Dr. Radha Mckeon at [facility]. CT scan emergency department demonstrated increased size of her metastatic
disease compared to previous. Speaking to the patient she reports she is planning on creating an advanced directive/living will next week and is currently planning on continuing treatment once she is stable for discharge.
Past-Medical/Surgical History
Proctectomy, coloanal anastomosis, loop ileostomy, hepatic lobectomy
Patient Medication
�Medication �Instructions �Recorded �Confirmed �Last Taken �Type
acetaminophen 500 mg tablet 1,000 mg (2 x 500 mg) PO Q4HPRN 09/21/24 11/26/2424 Rx
(Tylenol Extra Strength) PRN mild pain #30 tabs
amlodipine 5 mg tablet 5 mg PO BID Blood pressure #30 tabs 09/21/24 11/26/24 11/26/24 Rx
polyvinyl alcohol-povidone (PF) 1 drp BOTH EYES Q2HPRN PRN dry 09/21/24 11/26/24 10/13/24 Rx
1.4 %-0.6 % eye drops in a eyes #1 ea
dropperette (Refresh Classic (PF))
oxycodone 5 mg tablet 5 mg PO Q4HPRN PRN severe pain 11/26/24 11/26/24 11/26/24 History
tramadol 50 mg tablet 50 mg PO TIDPRN PRN moderate pains 11/26/24 11/26/24 11/26/24 History
Active Medications
Generic Name Dose Route Start Last Admin
Trade Name Freq PRN Reason Stop Dose Admin
Acetaminophen 1,000 mg 11/26/24 20:44 11/26/24 21:27
Acetaminophen 500 Mg Tablet PO 12/24/24 20:43 1,000 mg
Q6HPRN PRN Administration
mild pain
Amlodipine Besylate 5 mg 11/26/24 20:44 11/27/24 08:27
Amlodipine 5 Mg Tablet PO 12/24/24 20:43 5 mg
BID GLORIA Administration
Artificial Tears 1 drops 11/26/24 20:44 11/27/24 06:09
Artificial Tears Pf (Refresh) 10 Drop Droperette BOTH EYES 12/24/24 20:43 1 drops
Q2HPRN PRN Administration
dry eyes
Heparin Sodium 5,000 units 11/26/24 20:44 11/27/24 08:27
Heparin 5,000 Units/Ml 1 Ml Vial SC 12/24/24 20:43 5,000 units
Q12 GLORIA Administration
Hydromorphone HCl 0.5 mg 11/27/24 09:17 11/27/24 09:23
Hydromorphone 0.5 Mg/0.5 Ml Syringe IV 12/11/24 09:15 0.5 mg
Q2HPRN PRN Administration
severe pain
Sodium Chloride 1,000 mls @ 100 mls/hr 11/26/24 20:44 11/27/24 06:03
Nss IV 1,000 mls
.Q10H GLORIA Administration
Ondansetron HCl 4 mg 11/26/24 20:44 11/27/24 06:04
Ondansetron 4 Mg/2 Ml Vial IV 12/24/24 20:43 4 mg
Q6HPRN PRN Administration
nausea and vomiting
Sodium Chloride 0 flush 11/26/24 21:00
Sodium Chloride 0.9% (Flush) Syringe IV 12/24/24 20:59
PER PROTOCOL GLORIA
Tramadol HCl 50 mg 11/26/24 20:44
Tramadol Hcl 50 Mg Tablet PO 12/24/24 20:43
TIDPRN PRN
moderate pains
Review of Systems
-
Unable to obtain full review of systems at this time due to: Other (Unable to get good review of systems patient is extremely fatigued, speaks softly, difficulty understanding during interview)
History Source: Patient
GI: Reports Nausea and Vomiting
Physical Exam
-
General: Appears Chronically Ill
HEENT: Jaundice
Cardiology: Normal Sinus Rhythm
GI: Soft and Other (Nondistended, tender to palpation)
Labs
Lab Results
WBC 13.0 10^3/uL (4.8-10.8) H 11/27/24 05:47
RBC 3.48 10^6/uL (4.20-5.40) L 11/27/24 05:47
Hgb 10.5 g/dL (12.0-16.0) L 11/27/24 05:47
Hct 31.4 % (37.0-47.0) L 11/27/24 05:47
MCV 90.2 fL (81.0-99.0) 11/27/24 05:47
MCH 30.2 pg (27.0-31.0) 11/27/24 05:47
MCHC 33.4 g/dL (33.0-37.0) 11/27/24 05:47
RDW 27.5 % (11.5-14.5) H 11/27/24 05:47
Plt Count 360 10^3/uL (130-400) 11/27/24 05:47
MPV 9.3 fL (7.4-10.4) 11/27/24 05:47
Abs Immat Gran (auto) 0.1 10^3/uL (0-0.05) H 11/27/24 05:47
Absolute Neuts (auto) 11.7 10^3/uL (1.4-6.5) H 11/27/24 05:47
Absolute Lymphs (auto) 0.4 10^3/uL (1.2-3.4) L 11/27/24 05:47
Absolute Monos (auto) 0.7 10^3/uL (0.1-0.6) H 11/27/24 05:47
Absolute Eos (auto) 0.0 10^3/uL (0-0.7) 11/27/24 05:47
Absolute Basos (auto) 0.0 10^3/uL (0-0.2) 11/27/24 05:47
Immature Gran % 1.0 % (0-0.5) H 11/27/24 05:47
Neutrophils % 90.4 % (42.2-75.2) H 11/27/24 05:47
Lymphocytes % 2.9 % (20.5-51.1) L 11/27/24 05:47
Monocytes % 5.3 % (1.7-9.3) 11/27/24 05:47
Eosinophils % 0.1 % (0-6) 11/27/24 05:47
Basophils % 0.3 % (0-2) 11/27/24 05:47
Creatinine 0.6 mg/dL (0.6-1.0) 11/27/24 05:47
Vital Signs
Vital Signs
Temp Pulse Resp BP Pulse Ox
97.5 F 101 16 130/82 93
11/27/24 07:10 11/27/24 07:10 11/27/24 07:10 11/27/24 07:10 11/27/24 07:10
--- NOTE | 2024-11-27 10:04 | W.PN.HOSP.TC ---
Today's Communication/Plan
-
see bold
Assessment / Plan
Assessment / Plan
69-year-old female past medical history of stage IV metastatic rectal cancer status post proctectomy, coloanal anastomosis, loop ileostomy with metastases to liver status post hepatic lobectomy on Lonsurf, spine, chronic pain, hypertension,
fibromyalgia, depression, anxiety/paranoia, lumbar degenerative disease, chronic anemia, presenting with abdominal pain, vomiting and jaundice. She lives with her . She denies any fevers or chills or diarrhea or urinary symptoms. Denies
chest pain or shortness of breath. Patient follows with Dr. Radha Mckeon.
# Weakness/vomiting/transaminitis/jaundice secondary to worsening liver metastases
# Stage IV metastatic rectal cancer status post proctectomy, coloanal anastomosis, loop ileostomy
# Chronic cancer pain
Bilirubin of 14.7
Appreciate oncology input, recommend DNR, hospice, possibly inpatient hospice
Patient is not able to have a meaningful conversation currently
Dr. Mckeon discussed with patient's , who agrees to hospice
Hospice nurse informed, patient is a candidate for inpatient hospice
Start morphine drip, comfort care measures only
Chronic anemia
Essential hypertension
Fibromyalgia
Depression
Anxiety/paranoia
Lumbar degenerative disease
DVT prophylaxis�SCDs
DNR
Total time spent to see the patient on the floor, examine the patient, review data and lab results, discuss treatment plan with patient, nursing staff around 45 minutes.
Physical Exam
General: Appears chronically ill, no acute distress
HEENT: Normocephalic, Atraumatic, icteric sclerae
Respiratory: Clear to Auscultation bilaterally
Cardiac: Normal S1/S2, Regular Rate and Rhythm
GI: Hard, palpable masses, diffuse tenderness
Extremities: No Clubbing, Cyanosis, or Edema
Neuro: Nonfocal/Grossly Intact
Psych: Calm, Cooperative
Derm: Jaundiced
Anticipated Discharge: Within 24 hours
Subjective/Interval History
-
Date of Service: November 27, 2024
Patient is really weak, and has a difficult time speaking. She has abdominal pain, nausea, and vomiting. No fever.
Objective Data
-
Labs:
Laboratory Results
11/27/24
05:47
WBC 13.0 H
Hgb 10.5 L
Hct 31.4 L
Plt Count 360
Sodium 138
Potassium 4.0
Chloride 100
Carbon Dioxide 24
BUN 27 H
Creatinine 0.6
Glucose 79
Calcium 8.2 L
Total Bilirubin 13.7 H
AST 92 H
ALT 26
Alkaline Phosphatase 476 H
Vital Signs:
Vital Signs
Temp Pulse Resp BP Pulse Ox
97.5 F 101 16 130/82 93
11/27/24 07:10 11/27/24 07:10 11/27/24 07:10 11/27/24 07:10 11/27/24 07:10
I&O
11/26/24 11/27/24 11/28/24
06:59 06:59 06:59
Intake Total 1000 / 1000
Balance 1000 / 1000
[2024-11-27 10:26] VITALS: BMI 18.8
--- NOTE | 2024-11-27 14:41 | HOSPNOTE ---
Spoke with spouse and patient will be signed onto hospice services and remain inpatient tomorrow 11/28. Attending and CM aware of plan. Patient will be moved to [facility] admissions was called. Patient spouse will meet hospice at 10am.
--- NOTE | 2024-11-27 14:51 | CM ---
CM notified by MD that pt is being started on hospice care, plan to be inpatient hospice at . Plan for transfer to [address] [place] [address] today.
Hospice referral sent via [facility].
[2024-11-27 15:12] VITALS: BP 128/84
[2024-11-27] MEDS: MORPHINE SULFATE 4 MG IV ×2 (16:09→18:15)
--- NOTE | 2024-11-27 16:27 | PN.CDI ---
CDI
- -
CDI:
Physician Documentation Request
Admit Date: 11/26/24 16:45
Dear Doctor,
Please review the following and provide your response in the progress notes.
Clinical Indicators:
Pt admitted with Weakness/vomiting/transaminitis/jaundice secondary to worsening liver metastases.
11/27 Registered Dietitian: 'Chart reviewed due to consult pt with weight loss....Pts reports pt unable to each much for the past few weeks due to n/v and abdominal pain. During visit RD able to visulize temporal wasting, apparent ribs,
orbital area sunken in, protrusion of clavical.
CBW: 123 lbs 7.324 oz BMI 18.8 normal range (11/26).
Pts weight previous admission listed as 141 lbs 09/16 reflective of an 18 lb (13%) in 2 months.
With weight loss of > 10% weight loss in 3 months, < 75% estimated needs > 1 month and observed muscle and fat wasting pt meets AND/ASPEN criteria for severe protein calorie malnutrition of chronic illness.'
Based on the above information and your assessment, which of the following most accurately represents the patient's nutritional status?
Severe Protein Calorie Malnutrition
Other
[place] Criteria (ACP Hospitalist 2017)
2 or more criteria must be present for either
non severe or severe malnutrition
Note that the criteria differs related to the
presence of an acute or chronic illness
Chronic Illness
Energy Intake Non Severe: <75% for >1 month
Severe: <75% for >1 month
Weight Loss Non Severe: 5% over 1 month
7.5% over 3 months
10% over 6 months
20% over 1 year
Severe: >5% over 1 month
>7.5% over 3 months
>10% over 6 months
>20% over 1 year
Body Fat Non Severe: Mild Loss
Severe: Severe Loss
Muscle Mass Non Severe: Mild Loss
Severe: Severe Loss
Additional criteria that can be used to Determine if Mild or Moderate Malnutrition (Merck Manual 2018)
Use of terms such as suspected, likely, concern for, or probable (associated with a specific diagnosis that is being evaluated, monitored, or treated as if it exists) are acceptable and can be coded in the inpatient setting, when documented at the
time of discharge.
Thank you,
Jennifer Bonilla RN, BSN
CDI Specialist
Mobile Text
Please use your independent medical judgment in providing your response.
[2024-11-27] MEDS: ATIVAN 0.5 MG IV (18:15)
[2024-11-27 19:34] VITALS: BP 135/80
[2024-11-28] MEDS: ATIVAN 0.5 MG IV ×2 (04:07→10:40)
--- NOTE | 2024-11-28 05:59 | PTCARENOTE ---
Patient is lethargic and did not have any oral intake during spring coiling machine setter. upon assessment patient had not voided for over 8 hours, bladder scan performed and patient had 431 cc of urine in her bladder, patient unable to void, VACUUM METALIZING SUPERVISOR placed an order
for Vicente cath for end of life care. 14fr Vicente inserted with out difficulty, return of dark tea colored urine.
[2024-11-28 07:40] VITALS: BP 154/90
--- NOTE | 2024-11-28 08:14 | W.PN.HOSP.TC ---
Today's Communication/Plan
-
see bold
Assessment / Plan
Assessment / Plan
69-year-old female past medical history of stage IV metastatic rectal cancer status post proctectomy, coloanal anastomosis, loop ileostomy with metastases to liver status post hepatic lobectomy on Lonsurf, spine, chronic pain, hypertension,
fibromyalgia, depression, anxiety/paranoia, lumbar degenerative disease, chronic anemia, presenting with abdominal pain, vomiting and jaundice. She lives with her . She denies any fevers or chills or diarrhea or urinary symptoms. Denies
chest pain or shortness of breath. Patient follows with Dr. Radha Mckeon.
# Weakness/vomiting/transaminitis/jaundice secondary to worsening liver metastases
# Stage IV metastatic rectal cancer status post proctectomy, coloanal anastomosis, loop ileostomy
# Chronic cancer pain
Bilirubin of 14.7
Appreciate oncology input, recommend DNR, hospice, possibly inpatient hospice
Patient is not able to have a meaningful conversation currently
Dr. Mckeon discussed with patient's , who agrees to hospice
Hospice nurse following, patient is actively dying
Start morphine drip, continue comfort care measures only
Chronic anemia
Essential hypertension
Fibromyalgia
Depression
Anxiety/paranoia
Lumbar degenerative disease
Severe Protein Calorie Malnutrition
DVT prophylaxis�SCDs
DNR
Physical Exam
General: Appears chronically ill, no acute distress
HEENT: Normocephalic, Atraumatic, icteric sclerae
Respiratory: Clear to Auscultation bilaterally
Cardiac: Normal S1/S2, Regular Rate and Rhythm
GI: Hard, palpable masses, diffuse tenderness
Extremities: No Clubbing, Cyanosis, or Edema
Neuro: Nonfocal/Grossly Intact
Psych: Calm, Cooperative
Derm: Jaundiced
Anticipated Discharge: Today
Subjective/Interval History
-
Date of Service: November 28, 2024
Patient not responding. No fever, no vomiting.
Objective Data
-
Vital Signs:
Vital Signs
Temp Pulse Resp BP Pulse Ox
98.2 F 126 18 154/90 95
11/28/24 07:40 11/28/24 07:40 11/28/24 07:40 11/28/24 07:40 11/28/24 07:40
I&O
11/27/24 11/28/24 11/29/24
06:59 06:59 06:59
Intake Total 1000 / 1000
Balance 1000 / 1000
[2024-11-28] MEDS: MORPHINE SULFATE 4 MG IV ×2 (08:21→10:47)
--- NOTE | 2024-11-28 09:21 | CM ---
Reviewed the chart notes. Patient now on comfort care. Morphine gtt ordered.
[2024-11-28] MEDS: NSS (PRESERVATIVE FREE) 0.25 ML IV (10:39)
--- NOTE | 2024-11-28 11:20 | HOSPNOTE ---
DR Do would like the patient to remain on comfort measures since is imminent. Patient was not signed onto Hospice at this time.Hospice nurse did provide personal care and repositioned the patient. Morphine drip will be initiated . Respirations
are labored even after PRN doses of Morphine.
[2024-11-28] MEDS: MORPHINE 100 IV (11:56)
[2024-11-28 19:03] VITALS: BP 123/73
[2024-11-29] MEDS: ROBINUL 0.2 MG IV ×3 (04:48→14:32)
[2024-11-29] MEDS: ATIVAN 0.5 MG IV ×3 (04:56→12:55)
[2024-11-29 07:28] VITALS: BP 121/69
[2024-11-29] MEDS: MORPHINE 100 IV (07:29)
--- NOTE | 2024-11-29 09:37 | W.PN.HOSP.TC ---
Today's Communication/Plan
-
Increase morphine drip
Assessment / Plan
Assessment / Plan
69-year-old female past medical history of stage IV metastatic rectal cancer status post proctectomy, coloanal anastomosis, loop ileostomy with metastases to liver status post hepatic lobectomy on Lonsurf, spine, chronic pain, hypertension,
fibromyalgia, depression, anxiety/paranoia, lumbar degenerative disease, chronic anemia, presenting with abdominal pain, vomiting and jaundice. She lives with her . She denies any fevers or chills or diarrhea or urinary symptoms. Denies
chest pain or shortness of breath. Patient follows with Dr. Radha Mckeon.
# Weakness/vomiting/transaminitis/jaundice secondary to worsening liver metastases
# Stage IV metastatic rectal cancer status post proctectomy, coloanal anastomosis, loop ileostomy
# Chronic cancer pain
Bilirubin of 14.7
Appreciate oncology input, recommend DNR, hospice, possibly inpatient hospice
Patient is not able to have a meaningful conversation currently
Dr. Mckeon discussed with patient's , who agrees to hospice
Hospice nurse following, patient is actively dying
Increase morphine drip, continue comfort care measures only
Chronic anemia
Essential hypertension
Fibromyalgia
Depression
Anxiety/paranoia
Lumbar degenerative disease
Severe Protein Calorie Malnutrition
DVT prophylaxis�SCDs
DNR
Updated family at bedside 11/02
Physical Exam
General: Appears chronically ill, no acute distress
HEENT: Normocephalic, Atraumatic, icteric sclerae
Respiratory: Clear to Auscultation bilaterally
Cardiac: Normal S1/S2, Regular Rate and Rhythm
GI: Hard, palpable masses, diffuse tenderness
Extremities: No Clubbing, Cyanosis, or Edema
Neuro: Nonfocal/Grossly Intact
Psych: Calm, Cooperative
Derm: Jaundiced
Anticipated Discharge: Today
Subjective/Interval History
-
Date of Service: November 29, 2024
Patient is moaning and groaning. No fever, no vomiting.
Objective Data
-
Vital Signs:
Vital Signs
Temp Pulse Resp BP Pulse Ox
98.1 F 112 16 121/69 89
11/29/24 07:28 11/29/24 07:28 11/29/24 07:28 11/29/24 07:28 11/29/24 07:28
I&O
11/28/24 11/29/24 11/30/24
06:59 06:59 06:59
Intake Total 0 / 0
Output Total 600 / 600
Balance -600 / -600
[2024-11-29] MEDS: NSS (PRESERVATIVE FREE) 0.25 ML IV ×2 (09:41→12:55)
[2024-11-29] MEDS: COMPAZINE 5 MG IV (09:42)
[2024-11-29] MEDS: MORPHINE SULFATE 4 MG IV ×2 (09:45→12:54)
--- NOTE | 2024-11-29 09:54 | ED.GENMED ---
History of Present Illness
General
Chief Complaint: Cancer Problem
Source: patient and spouse
Exam Limitations: none
Time Seen by Provider: 11/26/24 12:15
History of Present Illness
History of Present Illness:
69-year-old with known metastatic rectal CA presents with increased weakness fatigue change in skin color nausea and vomiting. Symptoms are progressive in nature. Moderate symptoms. Ongoing chronic abdominal pain
Past History
Past History
ED Past Medical History: Cancer (Metastatic rectal carcinoma), Fibromyalgia, HTN, Psychiatric (Depression, paranoid delusions) and Other (ANCA vasculitis; lumbar DJD; chronic pain;)
ED Past Surgical History: Other (Port placement)
Social History
Tobacco: Non-smoker
Alcohol: None
Drug: None
Personal:
Living: with family
Employment: Retired
Family History
Family History: Other (Noncontributory)
Review of Systems
Review of Systems
All Other Systems: Not applicable
Constitutional: Denies fever or chills
Respiratory: Reports no symptoms
Cardiac: Reports no symptoms
Phy Exam
Physical Exam
Physical Exam:
GENERAL: Alert. Very weak appearing. Icteric. Thin and cachectic
EYE: Orbits normal. Icteric
NECK: Supple, no significant adenopathy.
ENT: Pharynx without erythema
CARDIAC: Regular rate and rhythm without any obvious murmurs.
LUNGS: Clear breath sounds,normal
ABDOMEN: Mildly distended. Decreased bowel sounds. Diffuse mild tenderness. No rebound or guarding no mass or hernia
NEUROLOGICAL: Alert and oriented , grossly non-focal. Mildly lethargic
SKIN: Warm and dry, no rash or lesion, no discoloration, skin intact.
MUSCULOSKELETAL: No edema,no deformity.Good color
Course
Orders/Labs/Results
Orders:
Orders
11/26/24 13:00
0.9% Sodium Chloride 1000 ml [Nss] 1,000 ml IV BOLUS
HYDROmorphone [Dilaudid] 0.25 mg IV NOW STA
11/26/24 13:04
CT Abd/pel Without Iv Or Oral Urgent
Comment:
Reason For Exam: Possible bowel obstruction. Rectal CA metastatic
11/26/24 13:07
Complete Blood Count/With Diff Urgent
Comprehensive Metabolic Panel Urgent
Lipase Urgent
11/26/24 13:54
Urinalysis Reflex To Culture Urgent
Date Specimen was Collected: 11/26/24
Time Specimen was Collected: 13:48
Urine Microscopic Reflex Cult Urgent
Urine Culture Urgent
FERN Source: U
Specimen Description:
Date Specimen was Collected: 11/26/24
Time Specimen was Collected: 13:48
11/26/24 Dinner
Regular
At Your Request: Limited Participation
11/26/24 16:13
Admit/Transfer Patient As Directed
Co-Sign Provider:
Level of Care: Inpatient admission
Assign to:: Medical/Surgical
Physician / Group: ayan
Diagnosis: metstatic rectal cancer
Reason for Hospitalization: metstatic rectal cancer
Expected length of stay greater than two midnights?: Yes
ELOS- Estimated Length of Stay in days: 2
I certify the patient meets the requirements for IP care: Yes
11/26/24 16:15
Code Status As Directed
Resuscitation Status: Full Code
PRN Pain Medication Management As Directed
May give lesser potent ordered pain med per pt: Yes
preference::
Protocol:: Medication orders for pain may be administered in a
manner that supports deferring to patient preference
when the pt is:
- Requesting an ordered lesser potent pain medication.
Least to most potent pain medications are defined
as: acetaminophen < NSAID < tramadol < opioids
(morphine, oxycodone, hydromorphone).
- Requesting a lesser dose of the same medication IF
ORDERED.
- Requesting a less intrusive route of administration
if both routes are prescribed by the provider (PO <
IV).
11/26/24 16:31
HYDROmorphone [Dilaudid] 0.5 mg IV Q4HPRN PRN
11/26/24 20:44
0.9% Sodium Chloride 1000 ml [Nss] 1,000 ml IV 100 mls/hr
Acetaminophen [Tylenol] 1,000 mg PO Q6HPRN PRN
Amlodipine [Norvasc] 5 mg PO BID
Artificial Tears (Pf) [Refresh Eye Drops (Pf)] 1 drops BOTH EYES Q2HPRN PRN
HYDROmorphone [Dilaudid] 0.5 mg IV Q4HPRN PRN
Heparin 5,000 units SC Q12
Ondansetron Injectable [Zofran] 4 mg IV Q6HPRN PRN
Tramadol HCl [Ultram] 50 mg PO TIDPRN PRN
11/26/24 20:44
Activity As Directed
Activity Level: As Tolerated
Vital Signs As Directed
Frequency: Per unit guidelines
DX Deep Vein Thrombosis Video Routine
11/27/24 05:47
Complete Blood Count/With Diff IN AM
Comprehensive Metabolic Panel IN AM
Abnormal Lab Results
11/26/24 11/26/24
13:07 13:54
WBC 15.0 H 10^3/uL
(4.8-10.8)
RBC 3.47 L 10^6/uL
(4.20-5.40)
Hgb 10.5 L g/dL
(12.0-16.0)
Hct 31.1 L %
(37.0-47.0)
RDW 26.8 H %
(11.5-14.5)
Abs Immat Gran (auto) 0.1 H 10^3/uL
(0-0.05)
Absolute Neuts (auto) 13.9 H 10^3/uL
(1.4-6.5)
Absolute Lymphs (auto) 0.3 L 10^3/uL
(1.2-3.4)
Immature Gran % 0.7 H %
(0-0.5)
Neutrophils % 92.7 H %
(42.2-75.2)
Lymphocytes % 2.0 L %
(20.5-51.1)
Sodium 134 L mmol/L
(135-145)
Chloride 94 L mmol/L
(98-107)
BUN 28 H mg/dl
(7-17)
Total Bilirubin 14.7 H mg/dl
(0.2-1.3)
AST 91 H U/L
(14-36)
Alkaline Phosphatase 509 H U/L
(38-126)
Albumin 3.2 L g/dl
(3.5-5.0)
Urine Ketones 1+ A
(Negative)
Ur Occult Blood Reflex 2+ A
(Negative)
Urine Nitrite (Reflex) Positive A
(Negative)
Urine Bilirubin 3+ A
(Negative)
Urine Urobilinogen 3+ A
(Neg - 1+)
Leukocyte Esterase Rfl Trace A
(Negative)
Urine Bacteria (Reflex) Few A
(Negative)
11/26/24 13:07
11/26/24 13:07
Vital Signs
Initial and Last Documented VS:
Initial Vital Signs
Temp Pulse Resp BP Pulse Ox
98.2 F 107 16 117/81 98
11/26/24 11:00 11/26/24 11:00 11/26/24 11:00 11/26/24 11:00 11/26/24 11:00
Last Documented Vital Signs
Temp Pulse Resp BP Pulse Ox
98.1 F 112 16 121/69 89
11/29/24 07:28 11/29/24 07:28 11/29/24 07:28 11/29/24 07:28 11/29/24 07:28
MDM/Problems Addressed
Differential Diagnosis Includes:
Patient with known metastatic rectal CA. Progression of symptoms. Now jaundiced with elevated LFTs and a bilirubin of 14. CT scan is stable. Just progression of disease. Admission for fluids pain management and further decisions on care would
strongly consider hospice
*Pulse Oximetry
Patient hypoxic: no
*Critical Care Note
Total Time (30-74mins, 75-104mins- exclusive of procedures): Not Applicable
Data Reviewed
Review of Other/Old Records Reveals: Labs, Records, Radiology Studies and Testing
ED Attending Note
-
Portions of this chart may have been created with voice recognition software.� Occasional wrong word or��sound alike� substitutions may have occurred due to the inherent limitations of voice recognition software.
Discharge Plan
Departure
Patient Disposition: Admit
Date of Disposition: 11/26/24
Time of Disposition: 15:36
Presentation/result/management discussed w/ accepting MD/DO: Hospitalist
Discharge Problem:
Metastatic rectal CA, Advancing disease, Elevated LFTs, General weakness
Interventions
Interventions:
*Neglect/Abuse Screening Last Done: 11/26/24 11:00
*Nursing Disposition Last Done: 11/26/24 20:43
Discharge Date and Time
Discharge Date/Time: 11/26/24 20:46
--- NOTE | 2024-11-29 10:31 | CM ---
Reviewed the chart notes. CM continues to be available to patient/family.
Plan: Comfort care.
--- NOTE | 2024-11-29 11:46 | HOSPNOTE ---
Washed and repositioned patient and got a prayer blanket. Supported family does appear to be imminent. Will continue to follow.
[2024-11-29] MEDS: MORPHINE SULFATE 6 MG IV ×4 (14:04→22:38)
[2024-11-29 19:25] VITALS: BP 92/58
[2024-11-30] MEDS: MORPHINE 100 IV (02:04)
[2024-11-30] MEDS: MORPHINE SULFATE 6 MG IV ×3 (07:37→13:03)
[2024-11-30] MEDS: NSS (PRESERVATIVE FREE) 0.25 ML IV ×2 (07:44→13:04)
[2024-11-30] MEDS: ATIVAN 0.5 MG IV ×2 (07:44→13:04)
[2024-11-30 08:00] VITALS: BP 69/41
--- NOTE | 2024-11-30 08:05 | W.PN.HOSP.TC ---
Today's Communication/Plan
-
see bold
Assessment / Plan
Assessment / Plan
69-year-old female past medical history of stage IV metastatic rectal cancer status post proctectomy, coloanal anastomosis, loop ileostomy with metastases to liver status post hepatic lobectomy on [place], spine, chronic pain, hypertension,
fibromyalgia, depression, anxiety/paranoia, lumbar degenerative disease, chronic anemia, presenting with abdominal pain, vomiting and jaundice. She lives with her . She denies any fevers or chills or diarrhea or urinary symptoms. Denies
chest pain or shortness of breath. Patient follows with Dr. Radha Mckeon.
# Weakness/vomiting/transaminitis/jaundice secondary to worsening liver metastases
# Stage IV metastatic rectal cancer status post proctectomy, coloanal anastomosis, loop ileostomy
# Chronic cancer pain
Bilirubin of 14.7
Appreciate oncology input, recommend DNR, hospice, possibly inpatient hospice
Patient is not able to have a meaningful conversation currently
Dr. Mckeon discussed with patient's , who agrees to hospice
Hospice nurse following, patient is actively dying
Increased morphine drip, continue comfort care measures only
Chronic anemia
Essential hypertension
Fibromyalgia
Depression
Anxiety/paranoia
Lumbar degenerative disease
Severe Protein Calorie Malnutrition
DVT prophylaxis�SCDs
DNR
Updated family at bedside 11/30
Physical Exam
General: Appears chronically ill
HEENT: Normocephalic, Atraumatic, icteric sclerae
Respiratory: Clear to Auscultation bilaterally
Cardiac: Normal S1/S2, tachycardic rate and Rhythm
GI: Hard, palpable masses, diffuse tenderness
Extremities: No Clubbing, Cyanosis, or Edema
Anticipated Discharge: Today
Subjective/Interval History
-
Date of Service: November 30, 2024
Appears comfortable.
Objective Data
-
Vital Signs:
Vital Signs
Temp Pulse Resp BP Pulse Ox
99.4 F 118 16 92/58 89
11/29/24 19:25 11/29/24 19:25 11/29/24 19:25 11/29/24 19:25 11/30/24 02:26
I&O
11/29/24 11/30/24 12/01/24
06:59 06:59 06:59
Intake Total 0 / 0
Output Total 600 / 600 150 / 150
Balance -600 / -600 -150 / -150
--- NOTE | 2024-11-30 10:27 | CM ---
Reviewed the chart notes. CM continues to be available to patient/family.
Plan: Comfort care continues.
--- NOTE | 2024-11-30 11:00 | HOSPNOTE ---
Patient remains on comfort. patient is actively dying appears comfortable mouth care performed and emotional support provided to family.
--- NOTE | 2024-11-30 14:16 | PTCARENOTE ---
Upon routine check, patient found with no spontaneous heart sounds or respirations; Dr Cortez notified.
--- NOTE | 2024-11-30 14:48 | W.PN.DEATH ---
Pronouncement of
-
Called to see patient to pronounce.
No spontaneous heart tones or respirations noted.
Patient not responsive to verbal stimuli.
Patient is pronounced .
Time of : 14:08
Date of : 11/30/24
Cause of : End-stage metastatic rectal cancer
Family Notified: Yes
--- NOTE | 2024-11-30 15:17 | W.DCSUMMARY ---
Discharge Summary
Discharge Data
Date of Admission: 11/26/24
Date of Discharge: 11/30/24
-
Pending Results: No
Hospital Course
Discharge diagnosis:
End-stage metastatic rectal cancer
Liver metastases
Chronic cancer pain
Vomiting
Weakness
Transaminitis
Jaundice
Chronic anemia
Fibromyalgia
Essential hypertension
Consults: Oncology
Hospital course:
69-year-old female with a past medical history of stage 4 rectal cancer with metastases to the liver was admitted for end-stage rectal cancer, failure to thrive, diffuse pain, and vomiting. Patient was seen in conjunction with oncology, who
recommended hospice and comfort care measures only. Patient was not able to communicate coherently. Her agreed to transitioning her to comfort care measures only. She was treated with an IV morphine drip, IV Ativan. She peacefully
on 11/30/2024 at 14:08. Family was at bedside, condolences were offered.
Discharge Plan
-
Patient Disposition:
Date/Time
Date/Time: 11/30/24 14:08
Discharge Date and Time
Discharge Date/Time: 11/30/24 14:08
Print Language: SLOVENIAN
== END 2024-11-30 14:08 | disposition expired | DRG 435 ==
LOC: 2 NORTH 16:45
PROVIDERS: ADMITTING PHYSICIAN Hospitalist; ATTENDING PHYSICIAN Family Medicine; EMERGENCY PHYSICIAN Emergency Medicine; FAMILY PHYSICIAN Family Medicine; OTHER PHYSICIAN Internal Medicine Hematology & Oncology
DX: C78.7 Secondary malignant neoplasm of liver and intrahepatic bile duct (principal); E43 Unspecified severe protein-calorie malnutrition; C20 Malignant neoplasm of rectum; R18.8 Other ascites; Z68.1 Body mass index [BMI] 19.9 or less, adult; G89.3 Neoplasm related pain (acute) (chronic); I10 Essential (primary) hypertension; F22 Delusional disorders; F41.9 Anxiety disorder, unspecified; F32.A Depression, unspecified; Z66 Do not resuscitate; M79.7 Fibromyalgia; D64.9 Anemia, unspecified; Z51.5 Encounter for palliative care
CPT/HCPCS: 74176; 80053; 81003; 81015; 83690; 85025; 87086; 92610; 96361; 96374; 99285